=== PATIENT | female | born 1930 | race Caucasian/White ===

== ENCOUNTER 2016-04-03 13:13 | Observation (INO) ==
--- NOTE | 2016-04-03 13:55 | Emergency Department Note ---
Disposition Clinical Impression: ESRD (end stage renal disease) Lower extremity pain Qualifiers: Laterality: bilateral Qualified Code(s): M79.604 - Pain in right leg Hypotension Qualifiers: Hypotension type: unspecified hypotension type Qualified Code(s): I95.9 - Hypotension, unspecified Disposition: Admitted As Inpatient Referrals: NO,PCP [Primary Care Provider] - Forms: ED Satisfaction Letter Extremity Problem HPI - General Chief complaint: ED Extremity Problem,Nontraumatic Stated complaint: lower extremity pain Time Seen by Provider: 04/03/16 13:44 Source: patient, EMS Mode of arrival: EMS Limitations: no limitations Nursing Notes Reviewed: Yes Vital Signs Reviewed: Yes - History of Present Illness HPI Narrative: 86 yo female with multiple comorbidities including ESRD (Saturday ) presents for evaluation of bilateral lower extremity pain. Patient states he does have peripheral neuropathy controlled with Lyrica but the pain is worse in the past 2-3 days. Pain is noted on the dorsum of the foot as well as the anterior posterior calf. Patient reports subjective fevers. Denies any other symptoms. No shortness of breath or chest pain. Reports that she did go to her dialysis yesterday. States that her pain is typically controlled Lyrica. Nursing staff was concerned the patient's pain was not as well controlled. Spoke with nursing staff who stated that her blood pressure typically runs low including systolic pressures 100/60 or 90/60. Patient has had her Coreg held for the past 3 doses. Typically has not held on dialysis days which was yesterday. Pt Subjective Complaint: extremity pain Onset (ago): day(s) Consistency: Worsening Pain Scale: 8 - Related Data Home Medications Medication Instructions Recorded Confirmed Acetaminophen [Tylenol] 650 mg PO Q4H PRN 04/14/15 10/17/15 Allopurinol [Zyloprim 100 MG] 100 mg PO DAILY 04/14/15 10/17/15 Aspirin 81 mg PO DAILY 04/14/15 10/17/15 Clopidogrel [Plavix] 75 mg PO DAILY 04/14/15 10/17/15 Docusate Sodium [Colace] 100 mg PO DAILY 04/14/15 10/17/15 Furosemide [Lasix] 80 mg PO SUTUTHSA 04/14/15 10/17/15 Insulin LISPRO [HumaLOG] 2 - 14 units SQ TIDAC 04/14/15 10/17/15 Ipratropium/Albuterol Neb [Duoneb] 3 ml IH Q6HR 04/14/15 10/17/15 Omeprazole [PriLOSEC] 20 mg PO DAILY 04/14/15 10/17/15 Sevelamer [Renvela] 800 mg PO TIDWM 04/14/15 10/17/15 Ascorbate Calcium [Vitamin C] 500 mg PO DAILY 06/05/15 10/17/15 Diclofenac Sodium [Voltaren] 2 gm TP QID PRN 06/05/15 10/17/15 Duloxetine [Cymbalta] 60 mg PO DAILY 06/05/15 10/17/15 Carvedilol [Coreg] 6.25 mg PO BID 08/12/15 10/17/15 Magnesium Hydroxide [Milk of 5 ml PO QID PRN 08/12/15 10/17/15 Magnesia] Bacitracin OINT [Ak-Tracin] 1 appl TP DAILY 10/16/15 10/17/15 Diltiazem HCl [Cardizem] 120 mg PO DAILY 10/16/15 10/17/15 Insulin DETEMIR [Levemir] 10 unit SQ HS 10/16/15 10/17/15 LORazepam [Ativan] 0.25 mg PO HS PRN 10/16/15 10/17/15 Loperamide [Imodium] 2 mg PO Q4HR PRN 10/16/15 10/17/15 Mag Hydrox/Al Hydrox/Simeth [MT 15 ml PO Q4H PRN 10/16/15 10/17/15 Acid Suspension] Miconazole 2% cream [Remedy 1 appl TP DAILY 10/16/15 10/17/15 Antifungal] TraMADol [Ultram] 25 mg PO BID 10/16/15 10/17/15 Nut.tx.impaired Renal Fxn,Soy 120 ml PO TID 10/17/15 10/17/15 [Nepro Carb Steady] Previous Rx's Medication Instructions Recorded Pregabalin [Lyrica] 25 mg PO BID #60 capsule 09/07/15 Levofloxacin [Levaquin] 500 mg PO Q48H #3 tablet 10/21/15 Allergies Allergy/AdvReac Type Severity Reaction Status Date / Time Iodinated Contrast Media - Allergy See Verified 04/15/15 00:04 Oral and Comments Penicillins Allergy See Verified 08/31/15 10:33 Comments Sulfa (Sulfonamide AdvReac Anxiety Verified 04/14/15 17:58 Antibiotics) All systems ED: reviewed and negative except as stated. Constitutional: Reports: as per HPI, fever Eyes: Reports: as per HPI ENT ED: Reports: as per HPI Cardiovascular: Reports: as per HPI. Denies: chest pain Respiratory: Reports: as per HPI. Denies: dyspnea Gastrointestinal: Reports: as per HPI. Denies: abdominal pain, nausea, vomiting Genitourinary: Reports: as per HPI Musculoskeletal: Reports: as per HPI Integumentary: Reports: as per HPI Neurological: Reports: as per HPI Psychiatric: Reports: as per HPI Endocrine: Reports: as per HPI Hematological/Lymphatic: Reports: as per HPI Past Medical History - Past Medical History Medical history: Reports: arthritis, atrial fibrillation, cardiomyopathy, CHF, COPD, diabetes, dialysis, GERD, hyperlipidemia, hypertension, osteoporosis, renal disease, venous stasis, valvular heart disease, other Surgical history: Reports: angioplasty/stent, hysterectomy, knee replacement, orthopedic, other, CHRISTY/BSO, other (Left arm AV fistula placement) Psychiatric history: Reports: anxiety, depression 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 - General Limitations: no limitations General appearance: alert, in no apparent distress - Head Head exam: normocephalic, normal inspection - Eye Eye exam: Present: normal appearance, EOMI - ENT ENT exam: normal exam, mucous membranes moist - Neck Neck exam: Present: normal inspection, trachea midline - Chest Chest inspection: Present: normal inspection, symmetric chest wall rise - Respiratory Respiratory exam: Present: normal lung sounds bilaterally. Absent: respiratory distress, accessory muscle use - Cardiovascular Cardiovascular exam: Present: regular rate, irregular rhythm - Abdominal Exam Abdominal exam: Present: soft, Non-Tender - Extremities Exam Extremities exam: Present: normal inspection, pedal edema (Trace bilateral) - Expanded Upper Extremity Exam Shoulder exam: Present: normal inspection Arm exam: Present: normal inspection Elbow exam: Present: normal inspection, other (left upper extremity AV fistula with thrill) - Expanded Lower Extremity Exam Upper leg exam: Present: normal inspection Knee exam: Present: normal inspection Lower leg exam: Present: normal inspection, tenderness, swelling, erythema ( Faint erythema over the distal left leg). Absent: abrasion, laceration, ecchymosis Ankle exam: Present: normal inspection Foot/toe exam: Present: normal inspection Neurovascular/Tendon exam: Present: normal capillary refill. Absent: pulse deficit - Back Exam Back exam: Present: normal inspection - Neurological Exam Neurological exam: Present: alert, oriented X3 - Skin Skin exam: Present: warm, dry, intact, normal color Course Course Narrative: Patient seen and examined. Patient no acute distress. Initial vitals in ED did show some hypotension with SBP in the 70-80s while sleeping. Patient was noted to be hypotensive will screen for sources of infection. Patient will get screening labs, EKG, chest x-ray as well as a UA. Disposition pending. - Reevaluation(s) Reevaluation #1: Spoke with family at bedside. Family states the patient typically has low blood pressure and has followed with cardiology in the recent past. Daughters state that they typically stop her blood pressure medication on dialysis days. Patient's manual blood pressure was recheck and shows improvement. Time: 14:41 Reevaluation #2: Difficulty obtaining labs. Time: 15:24 Reevaluation #3: Patient seen and examined. Patient's resting comfortably. No acute distress. Time: 17:09 Vital Signs Temperature 98.5 F 04/03/16 13:14 Pulse Rate 100 04/03/16 13:14 Respiratory Rate 18 04/03/16 13:14 Blood Pressure 104/70 04/03/16 13:14 O2 Sat by Pulse Oximetry 95 04/03/16 13:14 Temperature 98.5 F 04/03/16 13:14 Pulse Rate 100 04/03/16 16:44 Respiratory Rate 16 04/03/16 16:44 Blood Pressure 95/57 04/03/16 16:44 O2 Sat by Pulse Oximetry 96 04/03/16 16:44 Oxygen Delivery Oxygen Delivery Room Air Extremity Problem, Nontraumati - MDM Narrative Medical decision making narrative: 86-year-old female presents for evaluation of bilateral lower extremity pain. Patient does have a history of diabetic peripheral neuropathy.The pain is worsened in the past couple days. At triage the patient was noted be mildly hypotensive in the emergency department the patient did have blood pressures noted to be SBP in the 70s-80s. Patient was mentating appropriately. Patient' s family at bedside states the patient has been having difficulty controlling blood pressure. Notes that they recently stopped giving her her Coreg prior to dialysis. Patient does take Coreg 6.25 twice a day. Patient also stopped giving her diltiazem as well. Spoke with the nursing staff noted that he had difficulty palpating dorsalis pedis or lower extremities. Patient does have palpable lower extremities pulses with no significant extremity edema. Patient' s lab work does show that she does have evidence of hypoperfusion with a lactate of 3.0. Do not believe this to be septic. Possibly related to blood pressure control and hypoperfusion. Patient will likely need inpatient care and titration of blood pressure. Patient's chest x-ray shows no acute abnormalities. Patient's troponin was negative with no changes on EKG. Patient does not produce any urine and is unlikely to be source of infection. Patient's abdominal exam is unremarkable. Believe the lactate of 3 is related to hypoperfusion. Patient's agreeable to plan of care. Patient be admitted to the hospitalist service for further evaluation monitoring. Patient was not fluid overloaded due to her concerns of ESRD. Spoke with hospitalist who agrees with inpatient admission and monitoring and titration of blood pressure medicines. - Lab Data Lab results reviewed: Yes I reviewed the patient's lab results. Result diagrams: 04/03/16 15:43 04/03/16 15:43 Lab Results 04/03/16 04/03/16 04/03/16 Range/Units 15:43 15:43 15:43 WBC 7.9 (4.3-11.1) K/mcL RBC 3.83 (3.82-4.97) M/mcL Hgb 12.4 (11.5-15.4) g/dL Hct 38.9 (35.3-44.9) % MCV 101.6 H (83.0-100.0) fL MCH 32.4 (28.0-33.3) pg MCHC 31.9 (31.6-35.5) g/dL RDW 14.8 H (11.5-14.5) % Plt Count 173 (140-400) K/mcL MPV 9.9 (9.4-12.4) fL Immature Gran % 0.3 (0-4) % Seg Neutrophils % 50.1 % Lymphocytes % 18.9 % Monocytes % 13.0 % Eosinophils % 16.8 % Basophils % 0.9 % Neutrophils # 4.0 (1.6-8.9) K/mcL Lymphocytes # 1.5 (0.6-4.6) K/mcL Monocytes # 1.0 (0.0-1.3) K/mcL Eosinophils # 1.3 H (0.0-0.6) K/mcL Basophils # 0.1 (0.0-0.2) K/mcL Sodium 140 (136-145) mEq/L Potassium 4.3 (3.5-4.5) mEq/L Chloride 96 L (98-109) mEq/L Carbon Dioxide 26 (19-29) mEq/L BUN 48 H (7-20) mg/dL Creatinine 5.60 H (0.57-1.11) mg/dL Est GFR ( Amer) 9 L (> 60) Est GFR (Non-Af Amer) 7 L (> 60) BUN/Creatinine Ratio 9 (6-26) Glucose 141 H (70-99) mg/dL Calculated Osmolality 305 H (280-300) Lactic Acid 3.0 H (0.5-2.2) mmol/L Calcium 10.4 (8.6-10.8) mg/dL - Radiology Data Radiology results reviewed: Yes I reviewed the patient's radiology results. Chest X-Ray 04/03/16 14:20 IMPRESSION: No acute cardiopulmonary disease D/ / Mark Abel MD / Mark Abel MD Interpreting Provider: Mark Abel MD - EKG Data EKG attestation: Yes I reviewed and interpreted this EKG. EKG shows normal: sinus rhythm Rate: normal Rhythm: NSR [place]/QRS: left axis deviation, IVCD Interpretation: no acute changes, unchanged when compared to prior tracing (date ) (11/25/15), nonspecific ST-T wave changes S.B.A.R. - S.B.A.R. Situation: Demographics Background: Presenting Complaint Assessment: Vital Signs, Course and respsone to treatment, Patient/Family Expectation, Pertinant Lab Results Recommendation: Barrier(s) to disposition, Recommendation based on pending studies, treatments, or consults Radha Report Given to: Dr. Nydia Garcia Repor Time: 17:20
--- NOTE | 2016-04-03 14:36 | Emergency Department Note ---
START Narrative - START START: I examined this patient and my medical decision-making was reviewed with the GRAVITY MANAGER/PA/Advanced Practice Nurse/Resident Physician. I agree with the documented findings, disposition and treatment plan as described except to the extent set forth below. ED attending note:I saw this Patient with the emergency medicine resident Dr. Kwon. Please see a copy of his note for details of the H&P, evaluation, management and disposition of this emergency Department patient. We independently had [id number] contact with the patient. Briefly: A 86-year-old female sent by EMS from local [facility] facility. Patient has end-stage renal disease 3 times a week dialysis center in for lower extremity pain. Patient is actually somnolent but arouses to voice and her light touch. She was hypotensive 79/54 which is lower than baseline for this patient. Let show chronic peripheral edema and some slight hyperemia but no signs of overt cellulitis or acute neurovascular compromise in the lower extremities. Patient will undergo a metabolic and cardiac workup and infectious workup to exclude those possibilities considering her hypotension and somnolence. Provided 45 minutes of critical care service for this patient. See resident note for disposition of details.
[2016-04-03 15:53] LABS: Basophils # 0.1 K/mcL (0.0-0.2); Basophils % 0.9 %; Eosinophils # 1.3 K/mcL (0.0-0.6); Eosinophils % 16.8 %; Hematocrit 38.9 % (35.3-44.9); Hemoglobin 12.4 g/dL (11.5-15.4); Immature Granulocytes % 0.3 % (0-4); Lymphocytes # 1.5 K/mcL (0.6-4.6); Lymphocytes % 18.9 %; Mean Corpuscular HGB Conc 31.9 g/dL (31.6-35.5); Mean Corpuscular Hemoglobin 32.4 pg (28.0-33.3); Mean Corpuscular Volume 101.6 fL (83.0-100.0); Mean Platelet Volume 9.9 fL (9.4-12.4); Platelet Count 173 K/mcL (140-400); Red Blood Count 3.83 M/mcL (3.82-4.97); Red Cell Distribution Width 14.8 % (11.5-14.5); Segmented Neutrophils % 50.1 %
[2016-04-03] MEDS ORDERED: 0.9 % Sodium Chloride 500 ML IVC ONE (16:09)
[2016-04-03 16:11] LABS: Calcium 10.4 mg/dL (8.6-10.8); Potassium 4.3 mEq/L (3.5-4.5)
[2016-04-03] MEDS ORDERED: Dextrose Gel 15 GM PO PRN ×2 (19:32)
[2016-04-03] MEDS ORDERED: 0.9 % Sodium Chloride 1,000 ML IVC ONE (19:32)
[2016-04-03] MEDS ORDERED: Acetaminophen 325 MG TABLET PO PRN (19:32)
[2016-04-03] MEDS ORDERED: *HR* OxyCODONE Immed Rel 5 MG TABLET PO PRN (19:32)
[2016-04-03] MEDS ORDERED: D5% in Water 1,000 ML IV PRN (19:32)
[2016-04-03] MEDS ORDERED: *HR* Morphine 2 MG/ML SYRINGE IVP PRN (19:32)
[2016-04-03] MEDS ORDERED: Ondansetron 4 MG/2 ML VIAL IVP PRN (19:32)
[2016-04-03] MEDS ORDERED: *HR* Dextrose 50 % in Water (Syg) 50 ML SYRINGE IVP PRN (19:32)
[2016-04-03] MEDS ORDERED: Ipratropium/Albuterol Neb 3 ML IH PRN (19:32)
[2016-04-03] MEDS ORDERED: Naloxone 0.4 MG/ML INJ IVP PRN (19:32)
[2016-04-03] MEDS ORDERED: Benzonatate 100 MG CAPSULE PO PRN (19:32)
[2016-04-03] MEDS ORDERED: Diclofenac Sodium [Voltaren] 2 GM TP PRN (19:41)
--- NOTE | 2016-04-03 20:52 | Internal Med History&Physical ---
Date of Encounter: 04/03/16 Time of Encounter: 19:00 Assessment and Plan (1) Intractable neuropathic pain of lower extremity Current visit: Yes Status: Acute . Qualifiers: Qualified Code(s): G57.90 - Unspecified mononeuropathy of unspecified lower limb (2) Peripheral sensory neuropathy due to type 2 diabetes mellitus Current visit: Yes Status: Chronic . (3) Lactic acidosis Current visit: Yes Status: Acute . (4) Type 2 diabetes mellitus Current visit: Yes Status: Chronic . Qualifiers: Qualified Code(s): E11.8 - Type 2 diabetes mellitus with unspecified complications (5) Age-related physical debility Current visit: Yes Status: Chronic . (6) Anemia in chronic kidney disease (CKD) Current visit: Yes Status: Chronic . (7) COPD (chronic obstructive pulmonary disease) Current visit: Yes Status: Chronic . Qualifiers: Qualified Code(s): J44.9 - Chronic obstructive pulmonary disease, unspecified (8) Chronic atrial fibrillation Current visit: Yes Status: Chronic . (9) Dyslipidemia Current visit: Yes Status: Chronic . (10) ESRD (end stage renal disease) on dialysis Current visit: Yes Status: Chronic . (11) Morbid obesity with BMI of 40.0-44.9, adult Current visit: Yes Status: Chronic . (12) Renovascular hypertension Current visit: Yes Status: Chronic . (13) Diabetic peripheral autonomic neuropathy Current visit: Yes Status: Acute . Qualifiers: Qualified Code(s): E11.43 - Type 2 diabetes mellitus with diabetic autonomic (poly)neuropathy (14) Orthostatic hypotension dysautonomic syndrome Current visit: Yes Status: Acute . (15) Hypotension Current visit: Yes Status: Acute . Qualifiers: Qualified Code(s): I95.9 - Hypotension, unspecified Internal Medicine - H&P: HPI Chief complaint: Lower extremity pain Admitted From: Emergency Dept Plans for Post Hospital Care: Home History of present illness: Ms. Crowder is a 86 year old female with history significant of ESRD-hemodialysis dependent (Saturday), diabetic peripheral neuropathy, hyperuricemia, PAD, type 2 diabetes mellitus, GERD, CHF unspecified, PVD/venous insufficiency, valvular heart disease, CAD/PTCAstent/CMP, secondary hyperparathyroidism, anemia of chronic disease, osteoarthritis, osteoporosis, chronic atrial fibrillation, COPD, hypertension, dyslipidemia, depression and anxiety, morbid obesity, nonsmoker The patient was visited and interviewed and examined. The patient is admitted to [facility] emergency room when she presented from half-way via EMS services with ports of intractable pain of her lower extremities patient is knowledgeable of the presence of a peripheral neuropathy present for many years. Currently she takes Lyrica nonsteroidal anti-inflammatory and tramadol for pain management. However in the half-way setting she has noted increasing discomfort over the 2-3 days prior to presenting to the ED. Is worse along the dorsum of each foot as well as the anterior posterior calf. She denied any recent fevers chills sweats, nausea vomiting diarrhea. Denied any recent swelling or infections of toes the legs deny any recent changes in her medication schedules. Denies chest pain shortness of breath. She has end- stage renal disease and receives hemodialysis on Saturday was a Fridays she attended her dialysis run the day prior to presenting. Answers was also raised by half-way staff to typically hypotensive blood pressures in the 90-100/60 range. Because of these pressure differentials half-way staff withheld her antihypertensive therapy specifically Coreg for the 3 doses prior to presenting to the ED. This is typically not withheld on her dialysis days. Pain in her lower extremities at presentation was rated as an 8/10 in severity during throbbing constant. Findings in the ED: Temperature 98.5 pulse 100 respirations 16 BP 95-104/57-77 %oxygen saturation 96% room air. WBC 7.9 hemoglobin 12.4 platelets 173,000. MCV 101.6. RDW 14.8. Differential normal except for an increase in eosinophils. Metabolic panel normal except BUN 48 creatinine 5.6247. Glucose 141 and osmolality 305. Chloride 96. Lactic acid 3. Chest x-ray demonstrated no acute or active cardiopulmonary process. Focal infiltrate pleural effusion or pneumothorax demonstrated. Heart size stable. Left upper extremity vascular stent present. No osseous abnormalities demonstrated. EKG demonstrated normal sinus rhythm with left axis deviation and intraventricular conduction delay. No acute ischemic changes seen. Preliminary impression suggests worsening diabetic peripheral sensory neuropathy and chronic pain. Similarly chronic hypotension likely a consequence of diabetic peripheral autonomic neuropathy and long-standing ESRD. Screening studies documents patient's ESRD. Vital signs and additional studies are relatively benign. Patient is at risk for further clinical decline due to her advanced age presenting complaints and associated comorbidities. Workup and treatments will proceed comprehensively. Cumulative laboratory and radiographic data base was reviewed, considered and discussed. Pertinent ancillary medical records including [facility] and PCI documentation when available was reviewed and considered. Given the patient's presenting concerns, past medical history, clinical findings and symptoms, she is admitted at this time will undergo further evaluation and disposition. Orders were written as per the computerized physician order builder system.......................................................................... .................... Consultative opinion and will be sought as clinical circumstances justify. Dialysis team/nephrology consulted for continuance of hemodialysis schedule. Pain management needs will be addressed. Chronicity of patient's lower extremity pain concerns may benefit from referral to pain management center. Laboratory and radiographic data base will be updated as appropriate. Studies include: Cultures of blood and urine, cardiac injury panel, BNP, metabolic and hematologic panel, magnesium, phosphorus, ionized calcium, thyroid panel, lipid profile, A1c, ammonia, random urine analysis, C-peptide, CRP sedimentation rate , B12, folic acid, vitamin D panel, urinalysis, blood gas, lactic acid, serologies, etc. Precautions: Aspiration, fall, delirium protocol/surveillance initiated. Telemetry with continuous hemodynamic monitoring and pulse oximetry initiated. Orthostatic vital signs. Empiric antibody coverage: pending culture data. Special studies: chest x-ray, telemetry, EKG. Pulmonary toilet: Incentive spirometry. When necessary aerosol bronchodilator, mucolytic, antitussive. Supplemental oxygen. Corticosteroid therapy may be employed. CPAP/BiPAP supplemental oxygen delivery may be employed. Aerosol Mucomyst therapy may be employed. Fluid and electrolyte repletion efforts will proceed. Careful attention to fluid balance and renal recovery will be emphasized. Avoidance of nephrotoxic exposure and adverse drug drug interaction in the setting of impaired renal function will be monitored closely. Acute coronary syndrome protocol/surveillance initiated. DVT and PUD prophylaxis initiated: PPI therapy, intermittent pneumatic cuffs. Subcutaneous heparin. Early ambulation will be encouraged. Immunization updates recommended. Influenza and pneumococcal vaccinations as part of ongoing preventative healthcare recommendations strongly recommended. Smoking cessation counseling briefly addressed. Patient is a nonsmoker. Advanced care directive discussion briefly addressed. Patient does not declare any healthcare restrictions at this time. Cardiovascular risk appraisal and cardiovascular risk reduction efforts will be emphasized. Physical and occupational therapy may be consulted to evaluate patient and assess functional capacity and progress mobility as her circumstances permit. Sliding scale insulin coverage, ADA /renal dietary restraint and schedule an as- needed basis fingerstick glucose assessments were initiated. Nutrition/diabetes education counseling may be considered as circumstances justify. Outpatient medication schedules will be reviewed confirmed and facilitated as appropriate. Reconciliation of home treatments including adjustments, substitutions and reintroduction into the treatment regimen we will address necessary maintenance therapies for chronic pre-existing medical conditions. Plan of care has been reviewed and discussed in detail with the patient. Questions addressed. Hospital course is dependent on clinical findings, treatment response and potential consultative interventions. Patient is at risk for further acute clinical decline due to her age, presenting chief complaints and comorbid conditions. Condition is serious. Prognosis is cautiously optimistic. CODE STATUS is full. Past Med Surg Social Fam HX - Past Medical History Source: old records reviewed Medical history: arthritis, asthma, atrial fibrillation, cardiomyopathy, CHF, COPD, coronary artery disease, diabetes, dialysis, GERD, hyperlipidemia, hypertension, osteoporosis, renal disease, venous stasis, valvular heart disease , other Psychiatric history: anxiety, depression, other - Past Surgical History Surgical History: angioplasty/stent, hysterectomy, knee replacement, orthopedic , other, CHRISTY/BSO, other (Left arm AV fistula placement), vascular surgery - Social History Smoking Status: Never smoker Smokeless Tobacco Status: No Alcohol use: rarely Drug use: none Occupational status: retired Current living situation: ECF, Other Activity Level: Mostly sedentary Recent Out of Country Travel Within the Last 8 Weeks: No Exposure or Possible Exposure to Illness During Travel: No - Family History Son Living Status: Still Living Hx Family Cardiac Disorders: Yes (heart problems) Father Living Status: Hx Family Cardiac Disorders: Yes Hx Family Endocrine Disorder: Yes (DM) Mother Living Status: Hx Family Cardiac Disorders: No Hx Family Respiratory Disorders: No Hx Family Cancer: No Hx Family GI Disorders: No Hx Family Endocrine Disorder: No Hx Family Neuromuscular Disorders: No Hx Family Neurologic Disorders: No Hx Family HEENT Disorders: No Hx Family Autoimmune Disorders: No Internal Medicine - H&P: Meds Acetaminophen [Tylenol] 650 mg PO Q6H PRN 04/14/15 [History] Allopurinol [Zyloprim 100 MG] 100 mg PO DAILY 04/14/15 [History] Aspirin 81 mg PO DAILY 04/14/15 [History] Clopidogrel [Plavix] 75 mg PO DAILY 04/14/15 [History] Docusate Sodium [Colace] 100 mg PO DAILY 04/14/15 [History] Furosemide [Lasix] 80 mg PO SUTUTHSA 04/14/15 [History] Insulin LISPRO [HumaLOG] 2 - 14 units SQ TIDAC 04/14/15 [History] Ipratropium/Albuterol Neb [Duoneb] 3 ml IH Q6HR 04/14/15 [History] Omeprazole [PriLOSEC] 20 mg PO DAILY 04/14/15 [History] Sevelamer [Renvela] 800 mg PO TIDWM 04/14/15 [History] Ascorbate Calcium [Vitamin C] 500 mg PO DAILY 06/05/15 [History] Diclofenac Sodium [Voltaren] 2 gm TP QID PRN 06/05/15 [History] Duloxetine [Cymbalta] 60 mg PO DAILY 06/05/15 [History] Carvedilol [Coreg] 6.25 mg PO BID 08/12/15 [History] Diltiazem HCl [Cardizem] 120 mg PO DAILY 10/16/15 [History] Insulin DETEMIR [Levemir] 10 unit SQ HS 10/16/15 [History] LORazepam [Ativan] 0.5 mg PO HS PRN 10/16/15 [History] Loperamide [Imodium] 2 mg PO Q4HR PRN 10/16/15 [History] TraMADol [Ultram] 25 mg PO BID 10/16/15 [History] Pregabalin [Lyrica] 50 mg PO BID 04/03/16 [History] Allergies Iodinated Contrast Media - Oral and Allergy (Verified 04/03/16 19:37) See Comments UNABLE TO CONFIRM REACTIONS- ALL ALLERGIES OBTAINED THROUGH [facility] LAST APPT. Penicillins Allergy (Verified 04/03/16 19:37) See Comments UNABLE TO CONFIRM REACTIONS- ALL ALLERGIES OBTAINED THROUGH [facility] LAST APPT. povidone-iodine [From Betadine] Allergy (Verified 04/03/16 19:37) See Comments UNABLE TO CONFIRM REACTIONS- ALL ALLERGIES OBTAINED THROUGH [facility] LAST APPT. soap [From Betadine] Allergy (Verified 04/03/16 19:37) See Comments UNABLE TO CONFIRM REACTIONS- ALL ALLERGIES OBTAINED THROUGH [facility] LAST APPT. Sulfa (Sulfonamide Antibiotics) Allergy (Verified 04/03/16 19:37) See Comments UNABLE TO CONFIRM REACTIONS- ALL ALLERGIES OBTAINED THROUGH [facility] LAST APPT. All Systems PM: A 10-system review of systems was performed and is negative for pertinent findings except as documented above in the HPI. - Constitutional Constitutional: as per HPI, fever(s), malaise, no chills, no night sweats - EENT Eyes: as per HPI, no change in vision, no discharge, no pain, no photophobia Ears: as per HPI, no ear discharge, no ear pain, no tinnitus Nose, mouth and throat: as per HPI, no dysphagia, no nasal discharge, no neck pain, no sore throat - Cardiovascular Cardiovascular ROS IM: as per HPI, no chest pain, no diaphoresis, no dyspnea, no lightheadedness, no palpitations, no syncope - Respiratory Respiratory: as per HPI, no cough, no dyspnea, no wheezing, no excessive phlegm production - Gastrointestinal Gastrointestinal: as per HPI, no abdominal pain, no diarrhea, no hematemesis, no hematochezia, no melena, no nausea, no vomiting - Genitourinary Genitourinary: as per HPI, no change in urinary stream, no dysuria, no flank pain, no hematuria - Musculoskeletal Musculoskeletal ROS IM: as per HPI, back pain, other, no numbness, no tingling - Integumentary Integumentary IM: as per HPI, no rash, no unusual bruising - Neurological Neurological ROS: as per HPI, abnormal gait, radicular pain, weakness, other, no confusion, no convulsions, no focal weakness, no numbness, no tingling, no tremor(s) - Psychiatric Psychiatric: as per HPI - Endocrine Endocrine IM: as per HPI - Hematologic/Lymphatic Hematologic/Lymphatic: as per HPI, no easy bruising - Allergic/Immunologic Allergic/Immunologic: as per HPI - Constitutional Vitals: Temp Pulse Resp BP Pulse Ox 98.5 F 100 18 126/61 96 04/03/16 13:14 04/03/16 16:44 04/03/16 19:07 04/03/16 19:07 04/03/16 16:44 General appearance: Present: A&O X 3, morbidly obese, no acute distress, answers questions appropriately - Head Head exam: Present: atraumatic, normocephalic - Eye Eye exam: Present: EOMI, PERRL, conjuntiva pink, sclera anicteric Pupils: Present: normal accommodation, PERRL - ENT ENT exam: Present: mucous membranes moist, normal external ear exam, normal oropharynx - Neck Neck exam general surgery: Present: full ROM, supple, trachea midline. Absent: lymphadenopathy, tenderness, nuchal rigidity - Respiratory Respiratory exam: Present: CTAB. Absent: accessory muscle use, rales, rhonchi, wheezes - Cardiovascular Cardiovascular exam: Present: distant heart sounds, RRR, +S1, +S2. Absent: diastolic murmur, gallop, rubs, systolic murmur - GI/Abdominal GI/Abdominal exam: Present: normal bowel sounds, soft, no peritoneal signs. Absent: distended, tenderness - Extremities Exam Extremities exam: Present: full ROM, warm, radial pulses palpable and symetrical. Absent: calf tenderness, cyanotic, pedal edema - Neurological Exam Neurological exam: Present: alert, CN II-XII intact, motor sensory deficit, oriented X3. Absent: pronater drift, facial droop, speech deficit - Psychiatric Psychiatric exam: Present: normal affect, normal mood - Skin Skin exam: Present: dry, intact, warm. Absent: petechiae, rash, urticaria, vesicles Internal Med - H&P Results - Labs CBC & Chem 7: 04/03/16 15:43 04/04/16 03:40 - Impressions Vital Signs Temp Pulse Resp BP Pulse Ox 04/03/16 19:07 18 126/61 04/03/16 16:44 100 16 95/57 96 04/03/16 14:37 94 16 111/78 100 04/03/16 13:55 101 16 101/63 97 04/03/16 13:14 98.5 F 100 18 104/70 95 Intake and Output 04/03/16 04/03/16 04/03/16 07:59 15:59 23:59 Intake Total 500 / 500 Balance 500 / 500 Intake: IV Fluids 500 / 500 0.9 % Sodium Chloride 500 500 / 500 ML @ 1875 mls/hr IVC . Q16M ONE Rx#:[id number] Other: Weight 90.718 kg Patient Weight 04/03/16 23:59 Weight 90.718 kg Short CBC 04/03/16 Range/Units 15:43 WBC 7.9 (4.3-11.1) K/mcL Hgb 12.4 (11.5-15.4) g/dL Hct 38.9 (35.3-44.9) % Plt Count 173 (140-400) K/mcL Neutrophils # 4.0 (1.6-8.9) K/mcL BMP 04/03/16 Range/Units 15:43 Sodium 140 (136-145) mEq/L Potassium 4.3 (3.5-4.5) mEq/L Chloride 96 L (98-109) mEq/L Carbon Dioxide 26 (19-29) mEq/L BUN 48 H (7-20) mg/dL Creatinine 5.60 H (0.57-1.11) mg/dL Glucose 141 H (70-99) mg/dL Calcium 10.4 (8.6-10.8) mg/dL Abnormal lab results MCV 101.6 fL (83.0-100.0) H 04/03/16 15:43 RDW 14.8 % (11.5-14.5) H 04/03/16 15:43 Eosinophils # 1.3 K/mcL (0.0-0.6) H 04/03/16 15:43 Chloride 96 mEq/L (98-109) L 04/03/16 15:43 BUN 48 mg/dL (7-20) H 04/03/16 15:43 Creatinine 5.60 mg/dL (0.57-1.11) H 04/03/16 15:43 Est GFR ( Amer) 9 (> 60) L 04/03/16 15:43 Est GFR (Non-Af Amer) 7 (> 60) L 04/03/16 15:43 Glucose 141 mg/dL (70-99) H 04/03/16 15:43 Calculated Osmolality 305 (280-300) H 04/03/16 15:43 Lactic Acid 3.0 mmol/L (0.5-2.2) H 04/03/16 15:43 Allergies Allergy/AdvReac Type Severity Reaction Status Date / Time Iodinated Contrast Media - Allergy See Verified 04/03/16 19:37 Oral and Comments Penicillins Allergy See Verified 04/03/16 19:37 Comments povidone-iodine Allergy See Verified 04/03/16 19:37 [From Betadine] Comments soap [From Betadine] Allergy See Verified 04/03/16 19:37 Comments Sulfa (Sulfonamide Allergy See Verified 04/03/16 19:37 Antibiotics) Comments Laboratory Results WBC 7.9 K/mcL (4.3-11.1) 04/03/16 15:43 RBC 3.83 M/mcL (3.82-4.97) 04/03/16 15:43 Hgb 12.4 g/dL (11.5-15.4) 04/03/16 15:43 Hct 38.9 % (35.3-44.9) 04/03/16 15:43 MCV 101.6 fL (83.0-100.0) H 04/03/16 15:43 MCH 32.4 pg (28.0-33.3) 04/03/16 15:43 MCHC 31.9 g/dL (31.6-35.5) 04/03/16 15:43 RDW 14.8 % (11.5-14.5) H 04/03/16 15:43 Plt Count 173 K/mcL (140-400) 04/03/16 15:43 MPV 9.9 fL (9.4-12.4) 04/03/16 15:43 Immature Gran % 0.3 % (0-4) 04/03/16 15:43 Seg Neutrophils % 50.1 % 04/03/16 15:43 Lymphocytes % 18.9 % 04/03/16 15:43 Monocytes % 13.0 % 04/03/16 15:43 Eosinophils % 16.8 % 04/03/16 15:43 Basophils % 0.9 % 04/03/16 15:43 Neutrophils # 4.0 K/mcL (1.6-8.9) 04/03/16 15:43 Lymphocytes # 1.5 K/mcL (0.6-4.6) 04/03/16 15:43 Monocytes # 1.0 K/mcL (0.0-1.3) 04/03/16 15:43 Eosinophils # 1.3 K/mcL (0.0-0.6) H 04/03/16 15:43 Basophils # 0.1 K/mcL (0.0-0.2) 04/03/16 15:43 Sodium 140 mEq/L (136-145) 04/03/16 15:43 Potassium 4.3 mEq/L (3.5-4.5) 04/03/16 15:43 Chloride 96 mEq/L (98-109) L 04/03/16 15:43 Carbon Dioxide 26 mEq/L (19-29) 04/03/16 15:43 BUN 48 mg/dL (7-20) H 04/03/16 15:43 Creatinine 5.60 mg/dL (0.57-1.11) H 04/03/16 15:43 Est GFR ( Amer) 9 (> 60) L 04/03/16 15:43 Est GFR (Non-Af Amer) 7 (> 60) L 04/03/16 15:43 BUN/Creatinine Ratio 9 (6-26) 04/03/16 15:43 Glucose 141 mg/dL (70-99) H 04/03/16 15:43 Calculated Osmolality 305 (280-300) H 04/03/16 15:43 Lactic Acid 3.0 mmol/L (0.5-2.2) H 04/03/16 15:43 Calcium 10.4 mg/dL (8.6-10.8) 04/03/16 15:43 Impressions Chest X-Ray 04/03/16 14:20 IMPRESSION: No acute cardiopulmonary disease D/ / Mark Abel MD / Mark Abel MD Interpreting Provider: Mark Abel MD
[2016-04-03] MEDS: Insulin LISPRO 300 UNITS/3 ML VIAL SQ SCH (23:16)
[2016-04-03] MEDS: traMADol 50 MG TABLET PO SCH (23:17)
[2016-04-03] MEDS: Insulin DETEMIR 100 UNIT/ML X5UNITS SQ SCH (23:17)
[2016-04-03] MEDS: Pregabalin 25 MG CAPSULE PO SCH (23:17)
[2016-04-04] MEDS ORDERED: Ipratropium/Albuterol Neb 3 ML IH SCH
[2016-04-04] MEDS: 0.9 % Sodium Chloride 1,000 ML IVC SCH (01:04)
[2016-04-04 03:54] LABS: VBG HCO3 26.8 mEq/L (21-27); VBG PH 7.48 pH Units (7.32-7.42)
[2016-04-04 03:58] LABS: Ionized Calcium 1.14 mmol/L (1.15-1.35)
[2016-04-04 04:02] LABS: Prothrombin Time 10.9 Seconds (9.4-12.1)
[2016-04-04 04:05] LABS: Activated Partial Thrombo Time 26.7 Seconds (26.0-36.0)
[2016-04-04 04:09] LABS: Albumin/Globulin Ratio 0.8 (1.1-2.2); Bilirubin,Total 0.5 mg/dL (0.2-1.2); Calcium 9.7 mg/dL (8.6-10.8); Globulin 3.9 g/dL (2.4-3.5); Potassium 4.4 mEq/L (3.5-4.5); Total Protein 6.9 g/dL (6.0-8.3); Uric Acid 4.4 mg/dL (2.6-6.0)
[2016-04-04 04:12] LABS: Hemoglobin A1C 6.6 %
[2016-04-04] MEDS: Ipratropium/Albuterol Neb 3 ML IH SCH ×2 (04:35→10:37)
[2016-04-04 04:43] LABS: Folate 13.5 ng/mL (7.0-31.4)
[2016-04-04 05:54] LABS: Thyroid Stimulating Hormone 0.844 mcIU/mL (0.350-4.840)
--- NOTE | 2016-04-04 08:06 | Nephrology Consult Note ---
Date of Encounter: 04/04/16 Time of Encounter: 08:04 Assessment and Plan (1) ESRD (end stage renal disease) Current Visit: Yes Status: Acute Patient will receive her usual dialysis treatment today. Orders have been submitted. Her hemoglobin is greater than 10 so she will not require any Aranesp. Vital signs are stable. Currently she is on Lyrica and narcotic analgesics for her neuropathic pain and she seems to be comfortable. (2) Intractable neuropathic pain of lower extremity Current Visit: Yes Status: Acute Qualifiers: Laterality: unspecified laterality Qualified Code(s): G57.90 - Unspecified mononeuropathy of unspecified lower limb (3) Anemia in chronic kidney disease (CKD) Current Visit: Yes Status: Chronic History of Present Illness - History of Present Illness This is an 86-year-old female with end-stage renal disease related to diabetes. She receives dialysis every Saturday in [place]. Patient was admitted from the intermediate with complaints of intermittent pain in her legs and feet likely related to peripheral sensory neuropathy. Patient says she has periods of increasing pain that lasts for about an hour or so. Currently she said her pain is under good control. The intermediate she takes Lyrica as well as narcotic analgesics. Otherwise she says she is feeling well. She denies any shortness of breath chest pain fevers chills nausea vomiting. Clinically she actually looks quite well. She has minimal swelling. Her chest x-ray is clear. She is alert and oriented and in no obvious distress. Past Med Surg Social Fam HX - Past Medical History Medical history: arthritis, atrial fibrillation, cardiomyopathy, CHF, COPD, coronary artery disease, diabetes, dialysis, GERD, hyperlipidemia, hypertension , osteoporosis, renal disease, venous stasis, valvular heart disease, other Psychiatric history: anxiety, depression, other - Past Surgical History Surgical History: angioplasty/stent, hysterectomy, knee replacement, orthopedic , other, CHRISTY/BSO, other (Left arm AV fistula placement) - Social History Smoking Status: Never smoker Smokeless Tobacco Status: No Alcohol use: rarely Drug use: none - Family History Son Living Status: Still Living Hx Family Cardiac Disorders: Yes (heart problems) Father Living Status: Cause of : Farm accident Hx Family Cardiac Disorders: Yes Hx Family Respiratory Disorders: No Hx Family Cancer: Yes Hx Family GI Disorders: No Hx Family Genitourinary Disorders: No Hx Family Endocrine Disorder: Yes (DM) Hx Family Musculoskeletal Disorders: No Hx Family Neuromuscular Disorders: No Hx Family Neurologic Disorders: Yes Hx Family HEENT Disorders: No Hx Family Autoimmune Disorders: No Hx Family Reproductive Disorders: No Hx Family Psychosocial Disorders: No Hx Family Medical Disorders: No Mother Living Status: Hx Family Cardiac Disorders: No Hx Family Respiratory Disorders: No Hx Family Cancer: No Hx Family GI Disorders: No Hx Family Endocrine Disorder: No Hx Family Neuromuscular Disorders: No Hx Family Neurologic Disorders: No Hx Family HEENT Disorders: No Hx Family Autoimmune Disorders: No Medications and Allergies Acetaminophen [Tylenol] 650 mg PO Q6H PRN 04/14/15 [History] Allopurinol [Zyloprim 100 MG] 100 mg PO DAILY 04/14/15 [History] Aspirin 81 mg PO DAILY 04/14/15 [History] Clopidogrel [Plavix] 75 mg PO DAILY 04/14/15 [History] Docusate Sodium [Colace] 100 mg PO DAILY 04/14/15 [History] Furosemide [Lasix] 80 mg PO SUTUTHSA 04/14/15 [History] Insulin LISPRO [HumaLOG] 2 - 14 units SQ TIDAC 04/14/15 [History] Ipratropium/Albuterol Neb [Duoneb] 3 ml IH Q6HR 04/14/15 [History] Omeprazole [PriLOSEC] 20 mg PO DAILY 04/14/15 [History] Sevelamer [Renvela] 800 mg PO TIDWM 04/14/15 [History] Ascorbate Calcium [Vitamin C] 500 mg PO DAILY 06/05/15 [History] Diclofenac Sodium [Voltaren] 2 gm TP QID PRN 06/05/15 [History] Duloxetine [Cymbalta] 60 mg PO DAILY 06/05/15 [History] Carvedilol [Coreg] 6.25 mg PO BID 08/12/15 [History] Diltiazem HCl [Cardizem] 120 mg PO DAILY 10/16/15 [History] Insulin DETEMIR [Levemir] 10 unit SQ HS 10/16/15 [History] LORazepam [Ativan] 0.5 mg PO HS PRN 10/16/15 [History] Loperamide [Imodium] 2 mg PO Q4HR PRN 10/16/15 [History] TraMADol [Ultram] 25 mg PO BID 10/16/15 [History] Pregabalin [Lyrica] 50 mg PO BID 04/03/16 [History] Allergies Iodinated Contrast Media - Oral and Allergy (Verified 04/03/16 19:37) See Comments UNABLE TO CONFIRM REACTIONS- ALL ALLERGIES OBTAINED THROUGH [facility] LAST APPT. Penicillins Allergy (Verified 04/03/16 19:37) See Comments UNABLE TO CONFIRM REACTIONS- ALL ALLERGIES OBTAINED THROUGH [facility] LAST APPT. povidone-iodine [From Betadine] Allergy (Verified 04/03/16 19:37) See Comments UNABLE TO CONFIRM REACTIONS- ALL ALLERGIES OBTAINED THROUGH [facility] LAST APPT. soap [From Betadine] Allergy (Verified 04/03/16 19:37) See Comments UNABLE TO CONFIRM REACTIONS- ALL ALLERGIES OBTAINED THROUGH [facility] LAST APPT. Sulfa (Sulfonamide Antibiotics) Allergy (Verified 04/03/16 19:37) See Comments UNABLE TO CONFIRM REACTIONS- ALL ALLERGIES OBTAINED THROUGH [facility] LAST APPT. Review of Systems Constitutional: no excessive sweating, no weight loss Eyes: bilateral: blurred vision (patient denies), diplopia (patient denies) Nose, mouth and throat: no dizziness, no headache(s) Cardiovascular: edema, no chest pain, no palpitations Respiratory: as per HPI, dyspnea on exertion Gastrointestinal: no abdominal pain, no change in bowel habits Musculoskeletal: as per HPI Musculoskeletal: bilateral: foot pain Neurological: as per HPI, weakness Psychiatric: no depression, no difficulty concentrating Endocrine: as per HPI Hematologic/Lymphatic: no easy bruising, no lymphadenopathy Exam - Vital Signs Vital signs: Initial Vital Signs Temp Pulse Resp BP Pulse Ox 98.5 F 100 18 104/70 95 04/03/16 13:14 04/03/16 13:14 04/03/16 13:14 04/03/16 13:14 04/03/16 13:14 Vital Signs - Last 8 Hours Temp Pulse Resp BP Pulse Ox 04/04/16 05:01 97.7 F 87 18 117/73 93 L 04/04/16 04:35 18 93 L 04/04/16 01:15 18 126/61 96 Intake and Output 04/03/16 04/04/16 04/04/16 23:59 07:59 15:59 Intake Total 500 / 500 Balance 500 / 500 Intake: IV Fluids 500 / 500 0.9 % Sodium Chloride 500 500 / 500 ML @ 1875 mls/hr IVC . Q16M ONE Rx#:[id number] Other: Blood Glucose* 83 - General Appearance Exam: The patient is alert and oriented. She is in no acute distress. Carotids show no bruits. Lungs somewhat diminished breath sounds otherwise clear. Heart regular rate and rhythm with a 2/6 systolic ejection murmur. Abdomen shows normal bowel sounds of bruits masses or megaly or tenderness. Lower summary show minimal edema. Actually her swelling is quite good for her. Her feet show no obvious skin ulcers or breakdown. Dorsalis pedis pulses are diminished in the feet bilaterally. Posterior tibial pulses are 2 over 4 bilaterally. There is a functioning AV graft in the left arm. Results - Lab Results 04/03/16 15:43 04/04/16 03:40 Most recent lab results Calcium 9.7 mg/dL (8.6-10.8) 04/04/16 03:40 Magnesium 2.0 mg/dL (1.6-2.6) 04/04/16 03:40 Consult Discharge Plan - Plan Referrals: NO,PCP [Primary Care Provider] -
[2016-04-04] MEDS ORDERED: 0.9 % Sodium Chloride 250 ML IV PRN (08:08)
[2016-04-04] MEDS: traMADol 50 MG TABLET PO SCH (08:34)
[2016-04-04] MEDS: Aspirin 81 MG TAB.CHEW PO SCH (08:35)
[2016-04-04] MEDS: Pregabalin 25 MG CAPSULE PO SCH (08:35)
[2016-04-04] MEDS: Insulin LISPRO 300 UNITS/3 ML VIAL SQ SCH ×4 (08:39→21:11)
[2016-04-04] MEDS ORDERED: dilTIAZem HCl 60 MG TABLET PO SCH (09:00)
[2016-04-04] MEDS ORDERED: Ethyl Chloride Spray Bottle (104 SPRAY/BOTTLE) TP SCH (09:00)
[2016-04-04] MEDS ORDERED: ASCORBATE CALCIUM 500 MG PO SCH (09:00)
--- NOTE | 2016-04-04 11:20 | Electrocardiograph Report ---
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
[2016-04-04] MEDS ORDERED: traMADol 50 MG TABLET PO PRN (13:00)
--- NOTE | 2016-04-04 17:02 | Internal Med Progress Note ---
Date of Encounter: 04/04/16 Time of Encounter: 17:00 - Assessment and plan (1) Diabetic peripheral autonomic neuropathy Current Visit: Yes Status: Acute Assessment and plan: Denies any pain at this time. her dose of Lyrica was adjusted to 75 daily given ESRD on HD. will avoid IV narcotic at this time, will do tramadol and oxycodone for the pain. Qualifiers: Qualified Code(s): E11.43 - Type 2 diabetes mellitus with diabetic autonomic (poly)neuropathy (2) ESRD (end stage renal disease) Current Visit: Yes Status: Acute (3) Intractable neuropathic pain of lower extremity Current Visit: Yes Status: Acute Qualifiers: Qualified Code(s): G57.90 - Unspecified mononeuropathy of unspecified lower limb - Subjective Interval history: seen at the bedside, was noted to be sleeping the whole morning. once she woke up, she says she is doing well and did not c/o any pain at this time she is for HD today. - Constitutional Vitals: Temp Pulse Resp BP Pulse Ox 97.5 F L 90 18 104/63 94 L 04/04/16 16:56 04/04/16 16:56 04/04/16 16:56 04/04/16 16:56 04/04/16 16:56 General appearance: Present: A&O X 3, no acute distress Exam: neck- supple chest- b/l clear, no added sounds CVS-s1 and s2,no m/r/g abd- soft, non tender, bs are present ext- no edema, no tenderness. neuro- no focal defecits. Internal Medicine: Result - Labs CBC & Chem 7: 04/03/16 15:43 04/04/16 03:40 Labs: BMP 04/04/16 03:40 Sodium 139 Potassium 4.4 Chloride 97 L Carbon Dioxide 25 BUN 54 H Creatinine 6.43 H Glucose 109 H Calcium 9.7 Liver Function 04/04/16 Range/Units 03:40 Total Bilirubin 0.5 (0.2-1.2) mg/dL AST 11 (5-34) Units/L ALT 9 (0-55) Units/L Alkaline Phosphatase 203 H (38-126) Units/L Albumin 3.0 L (3.5-5.0) g/dL - ABG Interpretation ABG results: PT/INR, D-dimer PT 10.9 Seconds (9.4-12.1) 04/04/16 03:40 - VTE Documentation of Mechanical Device: Intermittent pneumatic compression device Consult Discharge Plan - Plan Referrals: NO,PCP [Primary Care Provider] -
[2016-04-04] MEDS: *HR* Heparin 5,000 UNIT/ML VIAL SQ SCH (17:20)
[2016-04-04] MEDS ORDERED: Pregabalin 75 MG CAPSULE PO SCH (18:00)
[2016-04-04] MEDS: *HR* OxyCODONE Immed Rel 5 MG TABLET PO PRN (21:09)
[2016-04-04] MEDS: Insulin DETEMIR 100 UNIT/ML X5UNITS SQ SCH (21:11)
[2016-04-05] MEDS: *HR* LORazepam 0.5 MG TABLET PO PRN ×2 (01:28→16:52)
[2016-04-05] MEDS: *HR* Heparin 5,000 UNIT/ML VIAL SQ SCH (05:17)
[2016-04-05] MEDS: *HR* OxyCODONE Immed Rel 5 MG TABLET PO PRN (05:25)
[2016-04-05] MEDS: 0.9 % Sodium Chloride 1,000 ML IVC SCH (07:14)
[2016-04-05] MEDS: Insulin LISPRO 300 UNITS/3 ML VIAL SQ SCH ×3 (08:00→16:29)
[2016-04-05] MEDS ORDERED: 0.9 % Sodium Chloride 250 ML IV PRN (08:19)
--- NOTE | 2016-04-05 08:19 | Nephrology Progress Note ---
Date of Encounter: 04/05/16 Time of Encounter: 07:55 Subjective Interval history: Sitting up in bed, eating breakfast. States leg pain under good control A/P- HD not done yesterday due to difficulty accessing AVF. Positive bruit/ thrill. Will do HD today, orders given. Objective - Vital Signs Vital signs: Vital Signs Temp Pulse Resp BP Pulse Ox 04/05/16 07:37 97.9 F 88 18 99/44 84 L 04/05/16 05:35 98.1 F 92 20 106/55 95 04/05/16 01:28 98.5 F 87 20 99/44 93 L 04/04/16 21:08 98.0 F 104 20 106/51 95 04/04/16 16:56 97.5 F L 90 18 104/63 94 L 04/04/16 11:22 97.6 F 90 18 133/79 97 04/04/16 10:38 18 96 04/04/16 08:21 97.4 F L 94 16 127/58 95 Intake and Output 04/04/16 04/05/16 04/05/16 23:59 07:59 15:59 Intake Total 0 / 0 Output Total 0 / 0 Balance 0 / 0 Intake: Oral 0 / 0 Output: Urine 0 / 0 Other: Weight 92.669 kg Blood Glucose* 127 86 Patient Weight 04/05/16 23:59 Weight 92.669 kg - General Appearance General appearance: Present: well-developed, well-nourished, appears started age EENT: Present: mucous membranes moist Neck: Present: no JVD Respiratory: Present: wheezing Cardiology: Present: no edema, regular rate, regular rhythm Dialysis Vascular Access: Arteriovenous Fistula thrill: Yes bruit: Yes Gastrointestinal: Present: normoactive bowel sounds, no tenderness Integumentary: Present: warm and dry Neurologic: Present: alert and oriented x3 Psychiatric: Present: mood/affect appropriate, cooperative - Lab 04/03/16 15:43 04/04/16 03:40 Most recent lab results Calcium 9.7 mg/dL (8.6-10.8) 04/04/16 03:40 Phosphorus 5.8 mg/dL (2.3-4.7) H 04/05/16 06:00 Magnesium 2.0 mg/dL (1.6-2.6) 04/04/16 03:40 - VTE Documentation of Mechanical Device: Intermittent pneumatic compression device Consult Discharge Plan - Plan Referrals: NO,PCP [Primary Care Provider] -
[2016-04-05] MEDS: Aspirin 81 MG TAB.CHEW PO SCH (08:24)
[2016-04-05 09:56] LABS: Hematocrit 31.2 % (35.3-44.9); Mean Corpuscular HGB Conc 32.7 g/dL (31.6-35.5); Mean Corpuscular Hemoglobin 32.3 pg (28.0-33.3); Mean Corpuscular Volume 98.7 fL (83.0-100.0); Mean Platelet Volume 10.3 fL (9.4-12.4); Platelet Count 154 K/mcL (140-400); Red Blood Count 3.16 M/mcL (3.82-4.97)
[2016-04-05 10:05] LABS: Calcium 8.4 mg/dL (8.6-10.8); Potassium 4.4 mEq/L (3.5-4.5)
[2016-04-05 10:11] LABS: Hemoglobin 10.2 g/dL (11.5-15.4)
[2016-04-05 10:27] LABS: Hepatitis B Surface Antigen Nonreactive (Nonreactive)
--- NOTE | 2016-04-05 13:07 | Discharge Summary ---
Date of Encounter: 04/05/16 Time of Encounter: 13:05 - Discharge Diagnosis (1) Diabetic peripheral autonomic neuropathy Priority: Primary Status: Acute Qualifiers: Qualified Code(s): E11.43 - Type 2 diabetes mellitus with diabetic autonomic (poly)neuropathy (2) ESRD (end stage renal disease) Priority: Secondary Status: Acute (3) Intractable neuropathic pain of lower extremity Priority: Primary Status: Acute Qualifiers: Qualified Code(s): G57.90 - Unspecified mononeuropathy of unspecified lower limb - Discharge Medications Prescriptions: LORazepam [Ativan] 0.5 mg PO HS PRN #30 tablet PRN Reason: Anxiety Pregabalin [Lyrica] 75 mg PO Q24H #30 capsule Tramadol HCl [Ultram] 25 mg PO BID PRN #60 tab PRN Reason: Pain Home Medications: Acetaminophen [Tylenol] 650 mg PO Q6H PRN 04/14/15 [History] Allopurinol [Zyloprim 100 MG] 100 mg PO DAILY 04/14/15 [History] Aspirin 81 mg PO DAILY 04/14/15 [History] Clopidogrel [Plavix] 75 mg PO DAILY 04/14/15 [History] Docusate Sodium [Colace] 100 mg PO DAILY 04/14/15 [History] Furosemide [Lasix] 80 mg PO SUTUTHSA 04/14/15 [History] Insulin LISPRO [HumaLOG] 2 - 14 units SQ TIDAC 04/14/15 [History] Ipratropium/Albuterol Neb [Duoneb] 3 ml IH Q6HR 04/14/15 [History] Omeprazole [PriLOSEC] 20 mg PO DAILY 04/14/15 [History] Sevelamer [Renvela] 800 mg PO TIDWM 04/14/15 [History] Ascorbate Calcium [Vitamin C] 500 mg PO DAILY 06/05/15 [History] Diclofenac Sodium [Voltaren] 2 gm TP QID PRN 06/05/15 [History] Duloxetine [Cymbalta] 60 mg PO DAILY 06/05/15 [History] Carvedilol [Coreg] 6.25 mg PO BID 08/12/15 [History] Diltiazem HCl [Cardizem] 120 mg PO DAILY 10/16/15 [History] Insulin DETEMIR [Levemir] 10 unit SQ HS 10/16/15 [History] Loperamide [Imodium] 2 mg PO Q4HR PRN 10/16/15 [History] TraMADol [Ultram] 25 mg PO BID 10/16/15 [History] LORazepam [Ativan] 0.5 mg PO HS PRN #30 tablet 04/05/16 [Rx] Pregabalin [Lyrica] 75 mg PO Q24H #30 capsule 04/05/16 [Rx] Tramadol HCl [Ultram] 25 mg PO BID PRN #60 tab 04/05/16 [Rx] Allergies/Adverse Reactions: Allergies Iodinated Contrast Media - Oral and Allergy (Verified 04/03/16 19:37) See Comments UNABLE TO CONFIRM REACTIONS- ALL ALLERGIES OBTAINED THROUGH [facility] LAST APPT. Penicillins Allergy (Verified 04/03/16 19:37) See Comments UNABLE TO CONFIRM REACTIONS- ALL ALLERGIES OBTAINED THROUGH [facility] LAST APPT. povidone-iodine [From Betadine] Allergy (Verified 04/03/16 19:37) See Comments UNABLE TO CONFIRM REACTIONS- ALL ALLERGIES OBTAINED THROUGH [facility] LAST APPT. soap [From Betadine] Allergy (Verified 04/03/16 19:37) See Comments UNABLE TO CONFIRM REACTIONS- ALL ALLERGIES OBTAINED THROUGH [facility] LAST APPT. Sulfa (Sulfonamide Antibiotics) Allergy (Verified 04/03/16 19:37) See Comments UNABLE TO CONFIRM REACTIONS- ALL ALLERGIES OBTAINED THROUGH [facility] LAST APPT. Procedures/tests Complete & Pending: Procedures Performed prior 72 hours Category Date Time Status ECG 12 lead ECG [ECG] Routine Y 04/04/16 12:00 Completed Date of admission: 04/03/16 17:39 Primary care physician: PCP NO Consults: 04/03/16 19:37 Consult to Occupational Therapy [CONS] Routine Comment: Evaluate, develop and implement POC Consult to Physical Therapy [CONS] Routine Comment: Evaluate, develop and implement POC 04/03/16 21:32 Consult to Pastoral Services [CONS] Routine Comment: 04/04/16 08:15 Consult to Dialysis [CONS] ONCE 04/05/16 08:30 Consult to Dialysis [CONS] ONCE 04/05/16 10:16 Consult to Conference Planner [CONS] Routine Reason for SW Consult: pt a resident of [facility] Discharging clinician: Mya Latham Anticipated date of discharge: 04/05/16 - Patient Status Disposition: Home, Self-Care Condition: Fair Functional capacity at discharge: uses cane/walker Overall status at discharge: patient is back to baseline - Discharge Instructions Follow Up With: RENETTA,PCP [Primary Care Provider] - - Diet and Activity Activity: as per physical therapy Diet: other (renal diet) Interval History: This is an 86-year-old female with end-stage renal disease related to diabetes. She receives dialysis every Saturday in [place]. Patient was admitted from the long term with complaints of intermittent pain in her legs and feet likely related to peripheral sensory neuropathy. Patient says she has periods of increasing pain that lasts for about an hour or so. Currently she said her pain is under good control. The long term she takes Lyrica as well as narcotic analgesics. Otherwise she says she is feeling well. She denies any shortness of breath chest pain fevers chills nausea vomiting. Clinically she actually looks quite well. She has minimal swelling. Her chest x-ray is clear. She is alert and oriented and in no obvious distress. Hospital course: She was admitted for severe intractable pain to both her arms during dialysis as per the patient. She remained overnight in the hospital and next day she did not have any pain. Her medication was adjusted, Lyrica to 75 daily given ESRD on hemodialysis. IV narcotics was avoided and was continued on tramadol and oxycodone for the pain. Nephrology was consulted for maintenance hemodialysis. She remained stable without pain requiring IV narcotics. She is being discharged today in stable condition. Time spent discussing smoking cessation with patient: more than 10 minutes - Time Spent with Patient Total time spent providing and/or coordinating discharge services: Greater than 30 minutes - Constitutional Vitals: Temp Pulse Resp BP Pulse Ox 97.2 F L 88 20 129/99 92 L 04/05/16 12:47 04/05/16 07:37 04/05/16 12:47 04/05/16 12:47 04/05/16 08:28 General appearance: Present: A&O X 3, morbidly obese, no acute distress, answers questions appropriately Exam: neck- supple chest- b/l clear, no added sounds CVS-s1 and s2,no m/r/g abd- soft, non tender, bs are present ext- no edema, no tenderness. neuro- no focal defecits. - VTE Documentation of Mechanical Device: Intermittent pneumatic compression device
--- NOTE | 2016-04-05 14:13 | Electrocardiograph Report ---
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
--- NOTE | 2016-04-05 14:39 | Physician Discharge Referral ---
ExtendedCare Referral Info Transfer To: ECF Provider in Charge: ayla goins Institutional Level of Care: Skilled - Diagnosis (1) Diabetic peripheral autonomic neuropathy Status: Acute (2) ESRD (end stage renal disease) Status: Acute (3) Intractable neuropathic pain of lower extremity Status: Acute - Transfer Medications Prescriptions: Pregabalin [Lyrica] 75 mg PO Q24H #30 capsule Home Medications: Acetaminophen [Tylenol] 650 mg PO Q6H PRN 04/14/15 [History] Allopurinol [Zyloprim 100 MG] 100 mg PO DAILY 04/14/15 [History] Aspirin 81 mg PO DAILY 04/14/15 [History] Clopidogrel [Plavix] 75 mg PO DAILY 04/14/15 [History] Docusate Sodium [Colace] 100 mg PO DAILY 04/14/15 [History] Furosemide [Lasix] 80 mg PO SUTUTHSA 04/14/15 [History] Insulin LISPRO [HumaLOG] 2 - 14 units SQ TIDAC 04/14/15 [History] Ipratropium/Albuterol Neb [Duoneb] 3 ml IH Q6HR 04/14/15 [History] Omeprazole [PriLOSEC] 20 mg PO DAILY 04/14/15 [History] Sevelamer [Renvela] 800 mg PO TIDWM 04/14/15 [History] Ascorbate Calcium [Vitamin C] 500 mg PO DAILY 06/05/15 [History] Diclofenac Sodium [Voltaren] 2 gm TP QID PRN 06/05/15 [History] Duloxetine [Cymbalta] 60 mg PO DAILY 06/05/15 [History] Carvedilol [Coreg] 6.25 mg PO BID 08/12/15 [History] Diltiazem HCl [Cardizem] 120 mg PO DAILY 10/16/15 [History] Insulin DETEMIR [Levemir] 10 unit SQ HS 10/16/15 [History] LORazepam [Ativan] 0.5 mg PO HS PRN 10/16/15 [History] Loperamide [Imodium] 2 mg PO Q4HR PRN 10/16/15 [History] TraMADol [Ultram] 25 mg PO BID 10/16/15 [History] Pregabalin [Lyrica] 75 mg PO Q24H #30 capsule 04/05/16 [Rx] Allergies/Adverse Reactions: Allergies Iodinated Contrast Media - Oral and Allergy (Verified 04/03/16 19:37) See Comments UNABLE TO CONFIRM REACTIONS- ALL ALLERGIES OBTAINED THROUGH [facility] LAST APPT. Penicillins Allergy (Verified 04/03/16 19:37) See Comments UNABLE TO CONFIRM REACTIONS- ALL ALLERGIES OBTAINED THROUGH [facility] LAST APPT. povidone-iodine [From Betadine] Allergy (Verified 04/03/16 19:37) See Comments UNABLE TO CONFIRM REACTIONS- ALL ALLERGIES OBTAINED THROUGH [facility] LAST APPT. soap [From Betadine] Allergy (Verified 04/03/16 19:37) See Comments UNABLE TO CONFIRM REACTIONS- ALL ALLERGIES OBTAINED THROUGH [facility] LAST APPT. Sulfa (Sulfonamide Antibiotics) Allergy (Verified 04/03/16 19:37) See Comments UNABLE TO CONFIRM REACTIONS- ALL ALLERGIES OBTAINED THROUGH [facility] LAST APPT. - Respiratory Orders Smoking Cessation: Smoking cessation has been advised. For more information, call the [place] Tobacco Quit Line at 6-825-QUXC-NOW. CERTIFICATION: I certify that the transfer of the above named patient to an Extended Care Facility is necessary for the continuing treatment of the diagnosis listed. The above information is true and accurate reflection of patient's current condition. Confidential - Redisclosure prohibited without a patient's written consent.
[2016-04-05 15:58] VITALS: BP 91/54
[2016-04-06 08:38] LABS: C-Peptide 3.7 ng/mL (0.8-3.5)
[2016-04-06] MEDS ORDERED: 0.9 % Sodium Chloride 250 ML IV PRN (09:21)
[2016-04-06 11:33] LABS: Hepatitis B Surface Antibody 1.54 mIU/mL
[2016-04-07 11:34] LABS: MMA (VIT B12 STATUS) 1.59 umol/L (0.00-0.40)
== END 2016-04-05 17:00 ==
LOC: 2NENU 13:13 → EMEROO 13:13 → 2NENU 19:25 → 2ANU 22:45
PROVIDERS: ADMIT Internal Medicine; ATTEND Internal Medicine

== ENCOUNTER 2016-05-09 17:54 | Inpatient (IN) ==
[2016-05-09] MEDS ORDERED: Aspirin 81 MG TAB.CHEW PO ONE (18:17)
--- NOTE | 2016-05-09 18:51 | Emergency Department Note ---
Disposition Clinical Impression: Hypertension, Diabetes mellitus, Dyslipidemia, Frailty, Renal failure, ESRD ( end stage renal disease), Anemia in chronic kidney disease (CKD), CAD (coronary artery disease), Abnormal EKG, Pleural effusion Chest pain Qualifiers: Qualified Code(s): R07.9 - COPD (chronic obstructive pulmonary disease) Qualifiers: Qualified Code(s): J44.9 - Disposition: Admitted As Inpatient Condition: Fair General Adult HPI - General Chief complaint: ED Chest Pain Stated complaint: Chest Pain Time Seen by Provider: 05/09/16 18:35 Source: patient, EMS Limitations: no limitations - History of Present Illness HPI Narrative: 86-year-old female with chronic renal failure came from the dialysis center secondary to chest pressure. She was given nitroglycerin which seemed to help. The patient has known CAD CHF diabetes hyperlipidemia hypertension and chronic kidney disease. The patient denies any shortness of breath. There is no history of trauma. She has had a significant and coarse cough There is no history of fever. There is been no abdominal pain vomiting or diarrhea no trouble moving the arms or legs independently. No unilateral leg swelling no syncope or coughing up blood. There is no history of confusion. No difficulty moving the arms or legs independently no unilateral upper or lower extremity weakness, no slurred speech. There is no history of fever or acute back pain. The patient does not usually have chest pain. She denies any other complaints or concerns. Apart from a cough, which did not seem to be related to her chest pain, she was in her usual state of health prior to going to dialysis when she developed the chest pain. They stopped dialysis and sent her in by EMS for further evaluation. Onset (ago): Just CHRO Pain Scale: 0 - Related Data Home Medications Medication Instructions Recorded Confirmed RX: Acetaminophen [Tylenol] 650 mg PO Q4H PRN 04/14/15 05/09/16 RX: Allopurinol [Zyloprim 100 MG] 100 mg PO DAILY 04/14/15 05/09/16 RX: Aspirin 81 mg PO DAILY 04/14/15 05/09/16 RX: Clopidogrel [Plavix] 75 mg PO DAILY 04/14/15 05/09/16 RX: Docusate Sodium [Colace] 100 mg PO DAILY 04/14/15 05/09/16 RX: Insulin LISPRO [HumaLOG] 2 - 12 units SQ TIDAC 04/14/15 05/09/16 RX: Ipratropium/Albuterol Neb 3 ml IH Q6HR 04/14/15 05/09/16 [Duoneb] RX: Omeprazole [PriLOSEC] 20 mg PO DAILY 04/14/15 05/09/16 RX: Sevelamer [Renvela] 800 mg PO TIDWM 04/14/15 05/09/16 RX: Ascorbate Calcium [Vitamin C] 500 mg PO DAILY 06/05/15 05/09/16 RX: Diclofenac Sodium [Voltaren] 2 gm TP QID PRN 06/05/15 05/09/16 RX: Duloxetine [Cymbalta] 60 mg PO DAILY 06/05/15 05/09/16 RX: Carvedilol [Coreg] 6.25 mg PO BID 08/12/15 05/09/16 RX: Diltiazem HCl [Cardizem] 120 mg PO DAILY 10/16/15 05/09/16 RX: Insulin DETEMIR [Levemir] 10 unit SQ HS 10/16/15 05/09/16 RX: Loperamide [Imodium] 2 mg PO Q4HR PRN 10/16/15 05/09/16 GuaiFENesin Liq [Robitussin Liq] 100 mg PO Q4H PRN 05/09/16 05/09/16 Hydrocortisone [Proctozone-Hc] 1 appl RC QID PRN 05/09/16 05/09/16 Pregabalin [Lyrica] 50 mg PO BID 05/09/16 05/09/16 Promethazine [Phenergan] 25 mg PO Q4H PRN 05/09/16 05/09/16 RX: Ethyl Chloride 1 appl TP AD PRN 05/09/16 05/09/16 RX: LORazepam [Ativan] 0.5 mg PO HS 05/09/16 05/09/16 RX: Tramadol HCl [Ultram] 25 mg PO BID 05/09/16 05/09/16 Citlalli-D Compound Cream 1 appl TP QID 05/09/16 05/09/16 Allergies Allergy/AdvReac Type Severity Reaction Status Date / Time Iodinated Contrast Media - Allergy See Verified 04/03/16 19:37 Oral and Comments Penicillins Allergy See Verified 04/03/16 19:37 Comments povidone-iodine Allergy See Verified 04/03/16 19:37 [From Betadine] Comments soap [From Betadine] Allergy See Verified 04/03/16 19:37 Comments Sulfa (Sulfonamide Allergy See Verified 04/03/16 19:37 Antibiotics) Comments All systems ED: reviewed and negative except as stated. Past Medical History - Past Medical History Medical history: Reports: arthritis, asthma, atrial fibrillation, cardiomyopathy , CHF, COPD, coronary artery disease, diabetes, dialysis, GERD, hyperlipidemia, hypertension, osteoporosis, renal disease, venous stasis, valvular heart disease , other Surgical history: Reports: angioplasty/stent, hysterectomy, knee replacement, orthopedic, other, CHRISTY/BSO, other (Left arm AV fistula placement), vascular surgery Psychiatric history: Reports: anxiety, depression, other [employer] history: Reports: non-contributory - Social History Smoking Status: Never smoker Smokeless Tobacco Status: No Alcohol use: Reports: rarely Drug use: Reports: none Physical Exam - General Limitations: no limitations General appearance: alert, in no apparent distress - Head Head exam: atraumatic, normocephalic, normal inspection - Eye Eye exam: Present: normal appearance, PERRL, EOMI. Absent: scleral icterus, conjunctival injection, miosis, mydriasis - ENT ENT exam: normal exam, normal oropharynx, mucous membranes moist, TM's normal bilaterally, normal external ear exam - Neck Neck exam: Present: normal inspection, full ROM, trachea midline - Chest Chest inspection: Present: normal inspection, symmetric chest wall rise. Absent : tenderness - Respiratory Respiratory exam: Present: normal lung sounds bilaterally. Absent: respiratory distress - Cardiovascular Cardiovascular exam: Present: regular rate, normal rhythm, normal heart sounds - Abdominal Exam Abdominal exam: Present: soft, Non-Tender, normal bowel sounds. Absent: tenderness, distention, guarding, rebound, rigidity, trauma, pulsatile mass - Extremities Exam Extremities exam: Present: full ROM, normal capillary refill, pedal edema, other (All 4 extremities are warm and well-perfused and generally supple without evidence of acute trauma, some lower extremity edema is noted. No evidence of neurovascular or neuromuscular compromise.). Absent: tenderness, joint swelling, calf tenderness - Expanded Lower Extremity Exam Hip/Pelvis exam: Present: full ROM. Absent: tenderness Upper leg exam: Present: full ROM. Absent: tenderness Knee exam: Present: full ROM. Absent: tenderness Lower leg exam: Present: full ROM. Absent: tenderness, Homans' sign Ankle exam: Present: full ROM, tenderness Course Vital Signs Temperature 97.3 F L 05/09/16 17:55 Pulse Rate 90 05/09/16 17:55 Respiratory Rate 18 05/09/16 17:55 Blood Pressure 116/71 05/09/16 17:55 O2 Sat by Pulse Oximetry 96 05/09/16 17:55 Temperature 97.5 F L 05/09/16 22:25 Pulse Rate 72 05/09/16 22:25 Respiratory Rate 18 05/09/16 22:25 Blood Pressure 96/56 05/09/16 22:25 O2 Sat by Pulse Oximetry 98 05/09/16 22:25 Oxygen Delivery Oxygen Delivery Room Air Medical Decision Making - MDM Narrative Medical decision making narrative: Patient is 86 years old, his history of coronary disease, diabetes, hyperlipidemia, and hypertension, she is end-stage renal disease on dialysis and was complaining of chest pain. Based on her age and significant risk factors for ACS, I think would be appropriate to admit the patient to the hospital for further evaluation. The patient also has what appears to be a loculated pleural effusion associated with an elevated white count and heart rate over 90 suggestive of sepsis. The patient is from a nursing facility. She may have HCAP. The patient was given aspirin in the ED. Nitroglycerin seemed to relieve her pain. Antibiotics were ordered. The patient appears to be stable at this time. I discussed the case with the hospitalist on-call who has accepted the patient to their care, the patient's lactate level is negative , cautious hydration secondary to renal failure and a history of heart failure as well as CAD is warranted, FEN per the admitting service. - Lab Data Lab results reviewed: Yes I reviewed the patient's lab results. Result diagrams: 05/09/16 19:11 05/09/16 19:11 Lab Results 05/09/16 05/09/16 05/09/16 Range/Units 19:11 19:11 19:11 WBC (4.3-11.1) K/mcL RBC (3.82-4.97) M/mcL Hgb (11.5-15.4) g/dL Hct (35.3-44.9) % MCV (83.0-100.0) fL MCH (28.0-33.3) pg MCHC (31.6-35.5) g/dL RDW (11.5-14.5) % Plt Count (140-400) K/mcL MPV (9.4-12.4) fL Immature Gran % (0-4) % Seg Neutrophils % % Lymphocytes % % Monocytes % % Eosinophils % % Basophils % % Neutrophils # (1.6-8.9) K/mcL Lymphocytes # (0.6-4.6) K/mcL Monocytes # (0.0-1.3) K/mcL Eosinophils # (0.0-0.6) K/mcL Basophils # (0.0-0.2) K/mcL PT 11.0 (9.4-12.1) Seconds INR 1.0 APTT 20.4 L (26.0-36.0) Seconds Sodium (136-145) mEq/L Potassium (3.5-4.5) mEq/L Chloride (98-109) mEq/L Carbon Dioxide (19-29) mEq/L BUN (7-20) mg/dL Creatinine (0.57-1.11) mg/dL Est GFR ( Amer) (> 60) Est GFR (Non-Af Amer) (> 60) BUN/Creatinine Ratio (6-26) Glucose (70-99) mg/dL Calculated Osmolality (280-300) Lactic Acid 1.5 (0.5-2.2) mmol/L Calcium (8.6-10.8) mg/dL Total Bilirubin (0.2-1.2) mg/dL Direct Bilirubin (0.0-0.5) mg/dL Indirect Bilirubin (0.0-1.2) mg/dL AST (5-34) Units/L ALT (0-55) Units/L Alkaline Phosphatase (38-126) Units/L Troponin I (0-0.03) ng/mL C-Reactive Protein (Less than 5) mg/L B-Natriuretic Peptide 413 H (0-100) pg/mL Serum Total Protein (6.0-8.3) g/dL Albumin (3.5-5.0) g/dL Globulin (2.4-3.5) g/dL Albumin/Globulin Ratio (1.1-2.2) Lipase (8-78) Units/L 05/09/16 05/09/16 05/09/16 Range/Units 19:11 19:11 19:11 WBC 12.3 H (4.3-11.1) K/mcL RBC 3.27 L (3.82-4.97) M/mcL Hgb 10.5 L (11.5-15.4) g/dL Hct 32.9 L (35.3-44.9) % MCV 100.6 H (83.0-100.0) fL MCH 32.1 (28.0-33.3) pg MCHC 31.9 (31.6-35.5) g/dL RDW 15.2 H (11.5-14.5) % Plt Count 278 (140-400) K/mcL MPV 9.9 (9.4-12.4) fL Immature Gran % 0.9 (0-4) % Seg Neutrophils % 70.1 % Lymphocytes % 11.2 % Monocytes % 8.6 % Eosinophils % 8.5 % Basophils % 0.7 % Neutrophils # 8.6 (1.6-8.9) K/mcL Lymphocytes # 1.4 (0.6-4.6) K/mcL Monocytes # 1.1 (0.0-1.3) K/mcL Eosinophils # 1.0 H (0.0-0.6) K/mcL Basophils # 0.1 (0.0-0.2) K/mcL PT (9.4-12.1) Seconds INR APTT (26.0-36.0) Seconds Sodium 139 (136-145) mEq/L Potassium 4.0 (3.5-4.5) mEq/L Chloride 98 (98-109) mEq/L Carbon Dioxide 28 (19-29) mEq/L BUN 30 H (7-20) mg/dL Creatinine 3.64 H (0.57-1.11) mg/dL Est GFR ( Amer) 14 L (> 60) Est GFR (Non-Af Amer) 12 L (> 60) BUN/Creatinine Ratio 8 (6-26) Glucose 130 H (70-99) mg/dL Calculated Osmolality 296 (280-300) Lactic Acid (0.5-2.2) mmol/L Calcium 10.1 (8.6-10.8) mg/dL Total Bilirubin 0.4 (0.2-1.2) mg/dL Direct Bilirubin 0.2 (0.0-0.5) mg/dL Indirect Bilirubin 0.2 (0.0-1.2) mg/dL AST 12 (5-34) Units/L ALT 11 (0-55) Units/L Alkaline Phosphatase 195 H (38-126) Units/L Troponin I 0.01 (0-0.03) ng/mL C-Reactive Protein 62 H (Less than 5) mg/L B-Natriuretic Peptide (0-100) pg/mL Serum Total Protein 8.0 (6.0-8.3) g/dL Albumin 3.1 L (3.5-5.0) g/dL Globulin 4.9 H (2.4-3.5) g/dL Albumin/Globulin Ratio 0.6 L (1.1-2.2) Lipase 28 (8-78) Units/L - Radiology Data Radiology results reviewed: Yes I reviewed the patient's radiology results.
[2016-05-09 19:31] LABS: Basophils # 0.1 K/mcL (0.0-0.2); Basophils % 0.7 %; Eosinophils % 8.5 %; Hematocrit 32.9 % (35.3-44.9); Hemoglobin 10.5 g/dL (11.5-15.4); Immature Granulocytes % 0.9 % (0-4); Lymphocytes # 1.4 K/mcL (0.6-4.6); Lymphocytes % 11.2 %; Mean Corpuscular HGB Conc 31.9 g/dL (31.6-35.5); Mean Corpuscular Hemoglobin 32.1 pg (28.0-33.3); Mean Corpuscular Volume 100.6 fL (83.0-100.0); Mean Platelet Volume 9.9 fL (9.4-12.4); Monocytes # 1.1 K/mcL (0.0-1.3); Monocytes % 8.6 %; Neutrophils # 8.6 K/mcL (1.6-8.9); Platelet Count 278 K/mcL (140-400); Red Blood Count 3.27 M/mcL (3.82-4.97); Red Cell Distribution Width 15.2 % (11.5-14.5); Segmented Neutrophils % 70.1 %
[2016-05-09 19:35] LABS: Activated Partial Thrombo Time 20.4 Seconds (26.0-36.0)
[2016-05-09 19:39] LABS: Albumin 3.1 g/dL (3.5-5.0); Albumin/Globulin Ratio 0.6 (1.1-2.2); Bilirubin,Direct 0.2 mg/dL (0.0-0.5); Bilirubin,Indirect 0.2 mg/dL (0.0-1.2); Bilirubin,Total 0.4 mg/dL (0.2-1.2); Calcium 10.1 mg/dL (8.6-10.8); Globulin 4.9 g/dL (2.4-3.5)
[2016-05-09] MEDS ORDERED: Levofloxacin 750 MG/150 ML 750 MG/150 ML BAG IVPB ONE (19:49)
[2016-05-09] MEDS ORDERED: Vancomycin 1,000 MG in D5% in Water 250 ML IVPB ONE (19:55)
--- NOTE | 2016-05-09 21:51 | Internal Med History&Physical ---
Date of Encounter: 05/09/16 Time of Encounter: 21:48 Assessment and Plan (1) HCAP (healthcare-associated pneumonia) Current visit: Yes Status: Acute Suspected pneumonia. Patient has fever cough and leukocytosis. CRP is 60. Will treat for suspected pneumonia cover for Pseudomonas and MRSA. Will start vancomycin and as aZTREONAM. Check sputum cultures and blood cultures (2) Chest pain Current visit: Yes Status: Acute We have to rule of acute coronary syndrome. Initial troponin normal. EKG shows no ST segment shifts. serial troponin and time actually monitoring. Continue aspirin Plavix and beta blockers. Qualifiers: Qualified Code(s): R07.9 - Chest pain, unspecified (3) ESRD (end stage renal disease) Current visit: Yes Status: Acute Hemodialysis Saturday. She dialyzed a full Session today. Nephrology consultation (4) COPD (chronic obstructive pulmonary disease) Current visit: Yes Status: Chronic Stable no active wheezing no need for steroids. Qualifiers: Qualified Code(s): J44.9 - Chronic obstructive pulmonary disease, unspecified (5) A-fib Current visit: No Status: Acute She is not an anticoagulation. She is currently in normal sinus rhythm Qualifiers: Atrial fibrillation type: paroxysmal Qualified Code(s): I48.0 - Paroxysmal atrial fibrillation (6) DM (diabetes mellitus), type 2 with renal complications Current visit: No Status: Chronic Sliding scale insulin. Qualifiers: Diabetes mellitus complication detail: with chronic kidney disease Diabetes mellitus correction insulin use: with long term care administrator use Chronic kidney disease stage: on chronic dialysis Qualified Code(s): E11.22 - Type 2 diabetes mellitus with diabetic chronic kidney disease; N18.6 - End stage renal disease; Z79.4 - penitentiary (current) use of insulin; Z99.2 - Dependence on renal dialysis Internal Medicine - H&P: HPI Chief complaint: chest pain History of present illness: Ms. Crowder is a 86 year old female with multiple medical problems including end- stage renal disease on hemodialysis Saturday presents the emergency room today with the main complaining of chest pain. During her dialysis today patient started experiencing retro sternal chest pain radiating to the left shoulder. Pain lasted approximately for a period of 2 hours. She noted some improvement with sublingual nitroglycerin. Nice any prior similar problems she does not recall having any occlusive coronary disease. One further interrogation patient as well as her daughter mentioned that she has been coughing more than usual the past few days since Saturday. She had actually to be started in the assisted on . She had a fever today according to the patient the 103. Patient lives in a assisted but goes to her family on the weekend. Past Med Surg Social Fam HX - Past Medical History Medical history: arthritis, asthma, atrial fibrillation, cardiomyopathy, CHF, COPD, coronary artery disease, diabetes, dialysis, GERD, hyperlipidemia, hypertension, osteoporosis, renal disease, venous stasis, valvular heart disease , other Psychiatric history: anxiety, depression, other - Past Surgical History Surgical History: angioplasty/stent, hysterectomy, knee replacement, orthopedic , other, CHRISTY/BSO, other (Left arm AV fistula placement), vascular surgery - Social History Smoking Status: Never smoker Smokeless Tobacco Status: No Alcohol use: rarely Drug use: none - Family History Son Living Status: Still Living Hx Family Cardiac Disorders: Yes (heart problems) Father Living Status: Hx Family Cardiac Disorders: Yes Hx Family Respiratory Disorders: No Hx Family Cancer: Yes Hx Family GI Disorders: No Hx Family Endocrine Disorder: Yes (DM) Hx Family Neuromuscular Disorders: No Hx Family Neurologic Disorders: Yes Hx Family HEENT Disorders: No Hx Family Autoimmune Disorders: No Mother Living Status: Hx Family Cardiac Disorders: No Hx Family Respiratory Disorders: No Hx Family Cancer: No Hx Family GI Disorders: No Hx Family Endocrine Disorder: No Hx Family Neuromuscular Disorders: No Hx Family Neurologic Disorders: No Hx Family HEENT Disorders: No Hx Family Autoimmune Disorders: No Internal Medicine - H&P: Meds Acetaminophen [Tylenol] 650 mg PO Q4H PRN 04/14/15 [History] Allopurinol [Zyloprim 100 MG] 100 mg PO DAILY 04/14/15 [History] Aspirin 81 mg PO DAILY 04/14/15 [History] Clopidogrel [Plavix] 75 mg PO DAILY 04/14/15 [History] Docusate Sodium [Colace] 100 mg PO DAILY 04/14/15 [History] Insulin LISPRO [HumaLOG] 2 - 12 units SQ TIDAC 04/14/15 [History] Ipratropium/Albuterol Neb [Duoneb] 3 ml IH Q6HR 04/14/15 [History] Omeprazole [PriLOSEC] 20 mg PO DAILY 04/14/15 [History] Sevelamer [Renvela] 800 mg PO TIDWM 04/14/15 [History] Ascorbate Calcium [Vitamin C] 500 mg PO DAILY 06/05/15 [History] Diclofenac Sodium [Voltaren] 2 gm TP QID PRN 06/05/15 [History] Duloxetine [Cymbalta] 60 mg PO DAILY 06/05/15 [History] Carvedilol [Coreg] 6.25 mg PO BID 08/12/15 [History] Diltiazem HCl [Cardizem] 120 mg PO DAILY 10/16/15 [History] Insulin DETEMIR [Levemir] 10 unit SQ HS 10/16/15 [History] Loperamide [Imodium] 2 mg PO Q4HR PRN 10/16/15 [History] Ethyl Chloride 1 appl TP AD PRN 05/09/16 [History] GuaiFENesin Liq [Robitussin Liq] 100 mg PO Q4H PRN 05/09/16 [History] Hydrocortisone [Proctozone-Hc] 1 appl RC QID PRN 05/09/16 [History] LORazepam [Ativan] 0.5 mg PO HS 05/09/16 [History] Pregabalin [Lyrica] 50 mg PO BID 05/09/16 [History] Promethazine [Phenergan] 25 mg PO Q4H PRN 05/09/16 [History] Citlalli-D Compound Cream 1 appl TP QID 05/09/16 [History] Tramadol HCl [Ultram] 25 mg PO BID 05/09/16 [History] Allergies Iodinated Contrast Media - Oral and Allergy (Verified 04/03/16 19:37) See Comments UNABLE TO CONFIRM REACTIONS- ALL ALLERGIES OBTAINED THROUGH [facility] LAST APPT. Penicillins Allergy (Verified 04/03/16 19:37) See Comments UNABLE TO CONFIRM REACTIONS- ALL ALLERGIES OBTAINED THROUGH [facility] LAST APPT. povidone-iodine [From Betadine] Allergy (Verified 04/03/16 19:37) See Comments UNABLE TO CONFIRM REACTIONS- ALL ALLERGIES OBTAINED THROUGH [facility] LAST APPT. soap [From Betadine] Allergy (Verified 04/03/16 19:37) See Comments UNABLE TO CONFIRM REACTIONS- ALL ALLERGIES OBTAINED THROUGH [facility] LAST APPT. Sulfa (Sulfonamide Antibiotics) Allergy (Verified 04/03/16 19:37) See Comments UNABLE TO CONFIRM REACTIONS- ALL ALLERGIES OBTAINED THROUGH [facility] LAST APPT. All Systems PM: A 10-system review of systems was performed and is negative for pertinent findings except as documented above in the HPI. Review of systems: 10 point review of systems is negative except for HPI - Constitutional Vitals: Temp Pulse Resp BP Pulse Ox 97.3 F L 96 18 104/43 96 05/09/16 17:55 05/09/16 20:55 05/09/16 21:03 05/09/16 21:03 05/09/16 20:55 Exam: Gen.: patient is alert oriented times 3 and often distress Ebony: normal S1 S2 nontraditional sounds are members chest: clear to auscultation I do not appreciate crackles or bronchial breathing abdomen: soft mound tender nondistended normal bowel sounds lower extremities: lax calf muscles pupils: 3 mm reactive Internal Med - H&P Results - Labs CBC & Chem 7: 05/09/16 19:11 05/09/16 19:11
[2016-05-09] MEDS ORDERED: Vancomycin 1,000 MG in D5% in Water 250 ML IVPB SCH (22:00)
[2016-05-09] MEDS ORDERED: Vancomycin 1,500 MG in D5% in Water 250 ML IVPB ONE (23:30)
[2016-05-09] MEDS: *HR* LORazepam 0.5 MG TABLET PO PRN (23:49)
[2016-05-09] MEDS: Aztreonam 1,000 MG in D5% in Water (Mini-Bag+) 100 ML IVPB SCH (23:51)
[2016-05-10] MEDS: Ipratropium/Albuterol Neb 3 ML IH SCH ×4 (04:21→22:47)
[2016-05-10] MEDS ORDERED: Hydrocortisone Acetate 25 MG RECTAL SUPPOSITORY RC PRN (05:25)
[2016-05-10 06:23] LABS: Hematocrit 28.8 % (35.3-44.9); Hemoglobin 9.3 g/dL (11.5-15.4); Mean Corpuscular HGB Conc 32.3 g/dL (31.6-35.5); Mean Corpuscular Hemoglobin 32.7 pg (28.0-33.3); Mean Corpuscular Volume 101.4 fL (83.0-100.0); Mean Platelet Volume 9.9 fL (9.4-12.4); Platelet Count 230 K/mcL (140-400); Red Blood Count 2.84 M/mcL (3.82-4.97); Red Cell Distribution Width 15.3 % (11.5-14.5)
[2016-05-10 06:42] LABS: Calcium 9.8 mg/dL (8.6-10.8); Magnesium 1.5 mg/dL (1.6-2.6); Potassium 4.3 mEq/L (3.5-4.5)
[2016-05-10] MEDS: Pregabalin 50 MG CAPSULE PO SCH ×2 (08:39→21:16)
[2016-05-10] MEDS: Aspirin 81 MG TAB.CHEW PO SCH (08:39)
[2016-05-10] MEDS: traMADol 50 MG TABLET PO SCH ×2 (08:40→21:16)
[2016-05-10] MEDS: Insulin LISPRO 300 UNITS/3 ML VIAL SQ SCH ×4 (08:40→21:43)
[2016-05-10] MEDS: Aztreonam 1,000 MG in D5% in Water (Mini-Bag+) 100 ML IVPB SCH ×2 (08:40→21:17)
--- NOTE | 2016-05-10 08:53 | Nephrology Consult Note ---
Date of Encounter: 05/10/16 Time of Encounter: 08:51 Assessment and Plan (1) ESRD (end stage renal disease) Current Visit: Yes Status: Acute The patient is stable from a dialysis perspective. She will continue undergo dialysis every Saturday. She will be placed on Aranesp for management of her anemia. (2) Chest pain Current Visit: Yes Status: Acute Qualifiers: Chest pain type: unspecified Qualified Code(s): R07.9 - Chest pain, unspecified (3) Anemia in chronic kidney disease (CKD) Current Visit: Yes Status: Chronic History of Present Illness - History of Present Illness This is an 86-year-old female with end-stage renal disease who receives dialysis every Saturday once her financial, the. Patient was on outpatient dialysis yesterday. The patient developed some chest pain as well as left arm pain. This was partially relieved with nitroglycerin. Subsequently the patient was transferred to the emergency room and admitted to the hospital for further evaluation and management. Patient currently remains chest pain-free. Troponin has peaked at 0.02. Chest x-ray suggests possible pneumonia. Patient does give a history of cough as well as sputum production. She says she also had a temperature of about 103 yesterday morning. The patient was afebrile when she was in dialysis. This morning the patient says she is feeling better. She denies any further chest pain. She denies any shortness of breath. She does continue to experience a cough. She has been started on empiric anabiotic' s. Past Med Surg Social Fam HX - Past Medical History Medical history: arthritis, asthma, atrial fibrillation, cardiomyopathy, CHF, COPD, coronary artery disease, diabetes, dialysis, GERD, hyperlipidemia, hypertension, osteoporosis, renal disease, venous stasis, valvular heart disease , other Psychiatric history: anxiety, depression, other - Past Surgical History Surgical History: angioplasty/stent, hysterectomy, knee replacement, orthopedic , other, CHRISTY/BSO, other (Left arm AV fistula placement), vascular surgery - Social History Smoking Status: Never smoker Smokeless Tobacco Status: No Alcohol use: rarely Drug use: none - Family History Son Living Status: Still Living Hx Family Cardiac Disorders: Yes (heart problems) Father Living Status: Hx Family Cardiac Disorders: Yes Hx Family Respiratory Disorders: No Hx Family Cancer: Yes Hx Family GI Disorders: No Hx Family Endocrine Disorder: Yes (DM) Hx Family Neuromuscular Disorders: No Hx Family Neurologic Disorders: Yes Hx Family HEENT Disorders: No Hx Family Autoimmune Disorders: No Mother Living Status: Hx Family Cardiac Disorders: No Hx Family Respiratory Disorders: No Hx Family Cancer: No Hx Family GI Disorders: No Hx Family Endocrine Disorder: No Hx Family Neuromuscular Disorders: No Hx Family Neurologic Disorders: No Hx Family HEENT Disorders: No Hx Family Autoimmune Disorders: No Medications and Allergies Acetaminophen [Tylenol] 650 mg PO Q4H PRN 04/14/15 [History] Allopurinol [Zyloprim 100 MG] 100 mg PO DAILY 04/14/15 [History] Aspirin 81 mg PO DAILY 04/14/15 [History] Clopidogrel [Plavix] 75 mg PO DAILY 04/14/15 [History] Docusate Sodium [Colace] 100 mg PO DAILY 04/14/15 [History] Insulin LISPRO [HumaLOG] 2 - 12 units SQ TIDAC 04/14/15 [History] Ipratropium/Albuterol Neb [Duoneb] 3 ml IH Q6HR 04/14/15 [History] Omeprazole [PriLOSEC] 20 mg PO DAILY 04/14/15 [History] Sevelamer [Renvela] 800 mg PO TIDWM 04/14/15 [History] Ascorbate Calcium [Vitamin C] 500 mg PO DAILY 06/05/15 [History] Diclofenac Sodium [Voltaren] 2 gm TP QID PRN 06/05/15 [History] Duloxetine [Cymbalta] 60 mg PO DAILY 06/05/15 [History] Carvedilol [Coreg] 6.25 mg PO BID 08/12/15 [History] Diltiazem HCl [Cardizem] 120 mg PO DAILY 10/16/15 [History] Insulin DETEMIR [Levemir] 10 unit SQ HS 10/16/15 [History] Loperamide [Imodium] 2 mg PO Q4HR PRN 10/16/15 [History] Ethyl Chloride 1 appl TP AD PRN 05/09/16 [History] GuaiFENesin Liq [Robitussin Liq] 100 mg PO Q4H PRN 05/09/16 [History] Hydrocortisone [Proctozone-Hc] 1 appl RC QID PRN 05/09/16 [History] LORazepam [Ativan] 0.5 mg PO HS 05/09/16 [History] Pregabalin [Lyrica] 50 mg PO BID 05/09/16 [History] Promethazine [Phenergan] 25 mg PO Q4H PRN 05/09/16 [History] Citlalli-D Compound Cream 1 appl TP QID 05/09/16 [History] Tramadol HCl [Ultram] 25 mg PO BID 05/09/16 [History] Allergies Iodinated Contrast Media - Oral and Allergy (Verified 04/03/16 19:37) See Comments UNABLE TO CONFIRM REACTIONS- ALL ALLERGIES OBTAINED THROUGH [facility] LAST APPT. Penicillins Allergy (Verified 04/03/16 19:37) See Comments UNABLE TO CONFIRM REACTIONS- ALL ALLERGIES OBTAINED THROUGH [facility] LAST APPT. povidone-iodine [From Betadine] Allergy (Verified 04/03/16 19:37) See Comments UNABLE TO CONFIRM REACTIONS- ALL ALLERGIES OBTAINED THROUGH [facility] LAST APPT. soap [From Betadine] Allergy (Verified 04/03/16 19:37) See Comments UNABLE TO CONFIRM REACTIONS- ALL ALLERGIES OBTAINED THROUGH [facility] LAST APPT. Sulfa (Sulfonamide Antibiotics) Allergy (Verified 04/03/16 19:37) See Comments UNABLE TO CONFIRM REACTIONS- ALL ALLERGIES OBTAINED THROUGH [facility] LAST APPT. Review of Systems Constitutional: as per HPI Eyes: bilateral: blurred vision (patient denies), diplopia (patient denies) Nose, mouth and throat: no dizziness, no headache(s) Cardiovascular: chest pain, chest pain at rest, dyspnea on exertion Respiratory: cough, dyspnea on exertion Gastrointestinal: no abdominal pain, no change in bowel habits Genitourinary Female: as per HPI Musculoskeletal: no muscle weakness, no numbness Integumentary: no hirsutism, no striae Neurological: as per HPI Psychiatric: no depression, no difficulty concentrating Endocrine: as per HPI Exam - Vital Signs Vital signs: Initial Vital Signs Temp Pulse Resp BP Pulse Ox 97.3 F L 90 18 116/71 96 05/09/16 17:55 05/09/16 17:55 05/09/16 17:55 05/09/16 17:55 05/09/16 17:55 Vital Signs - Last 8 Hours Temp Pulse Resp BP Pulse Ox 05/10/16 07:28 98.2 F 77 18 84/58 93 L 02/09/17 04:24 93 L 05/10/16 04:21 20 93 L 05/10/16 03:27 98.3 F 72 18 81/55 92 L Intake and Output 05/09/16 05/10/16 05/10/16 23:59 07:59 15:59 Intake Total 100 / 100 Output Total 0 / 0 Balance 100 / 100 Intake: IV Fluids 100 / 100 Azactam 1,000 MG In 100 / 100 Dextrose 5% (Minibag+) 100 ML 100 ML @ 200 mls/ hr IVPB Q12H [facility] Rx#: [id number] Oral 0 / 0 Output: Urine 0 / 0 Other: Weight 102.4 kg Blood Glucose* 153 Patient Weight 05/10/16 23:59 Weight 102.4 kg - General Appearance Exam: The patient is alert and oriented. She is in no acute distress. Patient is afebrile. Neck is supple. Lungs diminished breath sounds otherwise clear. Heart regular rate and rhythm with a 2/6 soft ejection murmur. Abdomen shows normal bowel sounds bruits masses or megaly or tenderness. Lower extremity show trace lower extremity swelling. There is a functioning AV fistula in the left arm. Results - Lab Results 05/10/16 06:12 05/10/16 06:12 Most recent lab results Calcium 9.8 mg/dL (8.6-10.8) 05/10/16 06:12 Magnesium 1.5 mg/dL (1.6-2.6) L 05/10/16 06:12 Consult Discharge Plan - Plan Referrals: Soren Flynn MD [Primary Care Provider] -
[2016-05-10] MEDS ORDERED: Ondansetron 4 MG/2 ML VIAL IVP PRN (10:49)
[2016-05-10] MEDS ORDERED: Ondansetron 4 MG/2 ML VIAL ONE (10:51)
[2016-05-10] MEDS ORDERED: 0.9 % Sodium Chloride 250 ML IVC ONE ×2 (11:31→13:00)
--- NOTE | 2016-05-10 11:38 | Internal Med Progress Note ---
Date of Encounter: 05/10/16 Time of Encounter: 11:00 - Assessment and plan (1) HCAP (healthcare-associated pneumonia) Current Visit: Yes Status: Acute Assessment and plan: HCAP Chest CT today with mucus plugging worse on the right, beonchitis and bronchioloitis, chronic stable lymphadenopathies and stable pulmonay nodules, Pulm HTN, and trace bilateral pleural effusions Follow blood cultures Send sputum cultures Check respiratory panel, monitor Vanco levels Patient is high risk for progression to sepsis (2) Hypotension Current Visit: Yes Status: Acute Assessment and plan: Patient with low blood pressures , initial transient response to dopamine Patient will be given gentle IV boluses At this time, she does not meet sepsis criteria , with no fever, tachycardia. She did have leukocytosis on admission which rapidly resolved I suspect she has some dehydration Will give gentle IV boluses and monitor closely Target MAP is 65-70 Qualifiers: Hypotension type: unspecified hypotension type Qualified Code(s): I95.9 - Hypotension, unspecified (3) ESRD (end stage renal disease) Current Visit: Yes Status: Chronic (4) CAD (coronary artery disease) Current Visit: Yes Status: Chronic Qualifiers: Coronary Disease-Associated Artery/Lesion type: [place] artery [place] vs. transplanted heart: [place] heart Associated angina: without angina Qualified Code(s): I25.10 - Atherosclerotic heart disease of [place] coronary artery without angina pectoris (5) Pleural effusion Current Visit: Yes Status: Acute Assessment and plan: Trace, will consult pulm for thoracentensis if there is no clinical improvement (6) Anemia in chronic kidney disease (CKD) Current Visit: Yes Status: Chronic Assessment and plan: Chronic, stable on aranesp, continue same (7) COPD (chronic obstructive pulmonary disease) Current Visit: Yes Status: Chronic Assessment and plan: Not in exacerbation Duonebs prn Qualifiers: COPD type: unspecified COPD Qualified Code(s): J44.9 - Chronic obstructive pulmonary disease, unspecified (8) Diabetes mellitus Current Visit: Yes Status: Chronic Assessment and plan: Sliding scale insulin for now Qualifiers: Diabetes mellitus type: type 2 Diabetes mellitus complication status: with kidney complications Diabetes mellitus complication detail: with chronic kidney disease 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: 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 detention insulin use status Chronic kidney disease stage: on chronic dialysis Qualified Code(s): E11.22 - Type 2 diabetes mellitus with diabetic chronic kidney disease; N18.6 - End stage renal disease (9) Dyslipidemia Current Visit: Yes Status: Chronic (10) Hypertension Current Visit: Yes Status: Chronic Assessment and plan: Currently hypotensive, continue to hold meds Qualifiers: Hypertension type: essential hypertension Qualified Code(s): I10 - Essential (primary) hypertension (11) A-fib Current Visit: Yes Status: Chronic Assessment and plan: Rate is controlled currently, not on anticoagulation Qualifiers: Atrial fibrillation type: paroxysmal Qualified Code(s): I48.0 - Paroxysmal atrial fibrillation (12) Chest pain Current Visit: Yes Status: Acute Assessment and plan: Resolved EKG non-ischemic Troponin negative X3 Continue home ASA and Plavix Obtain ECHO Qualifiers: Chest pain type: unspecified Qualified Code(s): R07.9 - Chest pain, unspecified - Subjective Interval history: 86 Y/O F with PMH of ESRD on HD, DM with Neuropathy, CAD, Afib, CMP, CHF, COPD, Obesity Patient is admitted for management of suspected HCAP She is noted to be hypertensive on chart review this morning She was started on dopamine, however, patient developed nausea and persistent vomiting, as well as tachycardia . Her BP however improved transiently She was seen at bedside with RN, sitting in a wheelchair at the door She verified hx of cough productive of sputum and one documented fever at home. also hx of chest pressure during HD yesterday. She is chest pain free at the moment Findings on admission with CXR finidngs suggestive of Pneumonia vs congestion, . Patient had been started on empiric antibiotics Chest CT ordered - Constitutional Vitals: Temp Pulse Resp BP Pulse Ox 98.2 F 91 18 92/57 93 L 05/10/16 07:28 05/10/16 10:48 05/10/16 07:28 05/10/16 10:48 05/10/16 07:28 General appearance: Present: A&O X 3, morbidly obese, pleasant, no acute distress - Head Head exam: Present: atraumatic - Eye Eye exam: Present: PERRL, conjuntiva pink, sclera anicteric - ENT ENT exam: Present: mucous membranes moist - Neck Neck exam general surgery: Present: normal inspection - Respiratory Respiratory exam: Present: rhonchi - Cardiovascular Cardiovascular exam: Present: irregular rhythm, +S1, +S2. Absent: diastolic murmur, gallop, rubs, systolic murmur, tachycardia - GI/Abdominal GI/Abdominal exam: Present: normal bowel sounds, soft, no peritoneal signs. Absent: distended, tenderness - Extremities Exam Extremities exam: Present: warm, radial pulses palpable and symetrical. Absent : calf tenderness, cyanotic, pedal edema - Neurological Exam Neurological exam: Present: CN II-XII intact, oriented X3, no focal deficits. Absent: pronater drift, facial droop, speech deficit - Skin Skin exam: Present: dry Internal Medicine: Result - Labs CBC & Chem 7: 05/10/16 06:12 05/10/16 06:12 Labs: Short CBC 05/10/16 Range/Units 06:12 WBC 10.6 (4.3-11.1) K/mcL Hgb 9.3 L (11.5-15.4) g/dL Hct 28.8 L (35.3-44.9) % Plt Count 230 (140-400) K/mcL BMP 05/10/16 06:12 Sodium 136 Potassium 4.3 Chloride 97 L Carbon Dioxide 22 BUN 38 H Creatinine 4.39 H Glucose 161 H Calcium 9.8 Cardiac Enzymes 05/10/16 05/10/16 Range/Units 00:31 06:12 Troponin I 0.02 0.01 (0-0.03) ng/mL - ABG Interpretation ABG results: PT/INR, D-dimer PT 11.0 Seconds (9.4-12.1) 05/09/16 19:11 - Impressions Impressions Chest CT 05/10/16 08:06 IMPRESSION: 1. Patchy airway secretions most prominent in the right lower lobe, potentially related to mucous plugging or bronchitis. 2. Right lower lobe airspace opacity with an appearance suggesting atelectasis. 3. Trace bilateral pleural effusions, larger on the right. 4. Patchy tree-in-bud opacities in the right lung consistent with infectious bronchiolitis. 5. Unchanged 0.7 cm x 0.4 cm part solid nodule in the right upper lobe, most likely related to prior infection or inflammation. Recommend follow-up chest CT in 1 year per the Fleischner Society recommendations for subsolid nodules as below. 6. Marked pulmonary artery dilation without cardiomegaly, an indeterminate finding that can be seen with pulmonary hypertension. 7. Moderate coronary atherosclerotic calcifications. 8. Small sliding hiatal hernia. RECOMMENDATIONS: Fleischner Society Recommendations for the Management of Subsolid Pulmonary Nodules Detected at CT: Solitary part-solid nodules 1. Initial follow-up CT at 3 months. 1. If persistent and solid component < 5mm, then yearly surveillance for a minimum of 3 years. Jesus et al. "Recommendations for the Management of Subsolid Pulmonary Nodules Detected at CT: A Statement from the Fleischner Society." Radiology: Volume 266: Number 1 - April 2012 D/ / Lyndon Villegas MD / Lyndon Villegas MD Interpreting Provider: Lyndon Villegas MD Consult Discharge Plan - Plan Referrals: Soren Flynn MD [Primary Care Provider] -
--- NOTE | 2016-05-10 16:28 | Electrocardiograph Report ---
[place] [id number] Test Date: 2016-05-09 Pat Name: Suzan Crowder Department: 103 Room: 2A43 Gender: F Roving Technician: : 1930 Requested By: Rito Melendez Order Number: [id number] Reading MD: Marko Bhatia Measurements Intervals [place] Rate: 92 P: 59 IA: 192 QRS: -47 QRSD: 124 T: 34 QT: 384 QTc: 434 Interpretive Statements SINUS RHYTHM WITH FREQUENT ECTOPIC PREMATURE COMPLEXES LEFT AXIS Electronically Signed On 05-10-2016 16:27:20 EST by Marko Bhatia
[2016-05-10 18:51] LABS: Adenovirus Not Detected (Not Detect); Bordetella Pertussis Not Detected (Not Detect); Chlamydophila pneumoniae Not Detected (Not Detect); Coronavirus 229E Not Detected (Not Detect); Coronavirus HKU1 Not Detected (Not Detect); Coronavirus NL63 Not Detected (Not Detect); Coronavirus OC43 Not Detected (Not Detect); Human Metapneumovirus Not Detected (Not Detect); Human Rhinovirus/Enterovirus Not Detected (Not Detect); Influenza A Subtype 2009 H1 Not Detected (Not Detect); Influenza A Untypeable Not Detected (Not Detect); Influenza B Not Detected (Not Detect); Mycoplasma pneumoniae Not Detected (Not Detect); Parainfluenza Virus 1 Not Detected (Not Detect); Parainfluenza Virus 2 Not Detected (Not Detect); Parainfluenza Virus 3 Not Detected (Not Detect); Parainfluenza Virus 4 Not Detected (Not Detect); Respiratory Syncytial Virus Not Detected (Not Detect)
[2016-05-11] MEDS: Ipratropium/Albuterol Neb 3 ML IH SCH ×3 (04:27→16:32)
[2016-05-11 06:41] LABS: Basophils # 0.1 K/mcL (0.0-0.2); Basophils % 0.7 %; Eosinophils # 0.9 K/mcL (0.0-0.6); Eosinophils % 9.2 %; Hematocrit 30.5 % (35.3-44.9); Immature Granulocytes % 0.7 % (0-4); Lymphocytes # 1.7 K/mcL (0.6-4.6); Lymphocytes % 16.7 %; Mean Corpuscular HGB Conc 29.5 g/dL (31.6-35.5); Mean Corpuscular Hemoglobin 31.4 pg (28.0-33.3); Mean Corpuscular Volume 106.3 fL (83.0-100.0); Mean Platelet Volume 10.4 fL (9.4-12.4); Monocytes % 13.2 %; Neutrophils # 6.1 K/mcL (1.6-8.9); Platelet Count 196 K/mcL (140-400); Red Blood Count 2.87 M/mcL (3.82-4.97); Red Cell Distribution Width 15.1 % (11.5-14.5); Segmented Neutrophils % 59.5 %
[2016-05-11] MEDS: Aspirin 81 MG TAB.CHEW PO SCH (06:45)
[2016-05-11] MEDS: Pregabalin 50 MG CAPSULE PO SCH ×2 (06:45→22:13)
[2016-05-11 07:04] LABS: Albumin 2.5 g/dL (3.5-5.0); Albumin/Globulin Ratio 0.6 (1.1-2.2); Bilirubin,Total 0.3 mg/dL (0.2-1.2); Calcium 9.6 mg/dL (8.6-10.8); Globulin 3.9 g/dL (2.4-3.5); Monocytes # 1.4 K/mcL (0.0-1.3); Platelet Estimate Decreased (Normal); Potassium 5.1 mEq/L (3.5-4.5); Total Protein 6.4 g/dL (6.0-8.3)
[2016-05-11 07:05] LABS: Anisocytosis 1+ (Not Present)
[2016-05-11 07:16] LABS: Vancomycin,Random 18.7 mcg/mL
[2016-05-11] MEDS: Insulin LISPRO 300 UNITS/3 ML VIAL SQ SCH ×4 (08:15→22:15)
[2016-05-11] MEDS: traMADol 50 MG TABLET PO SCH ×2 (08:28→22:13)
[2016-05-11] MEDS: Aztreonam 1,000 MG in D5% in Water (Mini-Bag+) 100 ML IVPB SCH (08:37)
[2016-05-11] MEDS: Diltiazem CD (24hr) 120 MG CAPSULE PO SCH (08:37)
--- NOTE | 2016-05-11 09:51 | ECHO - Doppler Report ---
Echocardiogram Name: Suzan Crowder Date of Study: 05/10/2016 Date: 1930 Ht: 59.0 in Medical Record#: [id number] Age: 86 Wt: 225.0 lb Gender: Female BSA: 1.94 Order #: [id number] Location: [facility] Room #: 2A43 Reading Physician: Joaquin Escobar DO, JEREMIAH, GRIFFIN SMITH Dough Raiser: Radha Laird Ordering Physician: Ousmane Rogers MD Primary Physician: Soren Flynn MD Indications: Chest pain, Hypotension Impressions: LVEF 60%. Normal LV chamber size, wall thickness and function. Atypical septal motion consistent with bundle branch block. Mild left ventricular diastolic dysfunction. Normal right ventricular structure and function. Mild-moderate tricuspid regurgitation. Moderate pulmonary hypertension. Estimated RVSP is 50 mmHg. Left Ventricular Wall Motion: Rest Echo Findings All wall segments showed normal motion. Findings: Study Quality * Technically adequate exam. ECG Findings * Sinus rhythm with BBB. Left Ventricle * LVEF 60%. * Normal LV chamber size, wall thickness and function. * Atypical septal motion consistent with bundle branch block. * Mild left ventricular diastolic dysfunction. Right Ventricle * Normal right ventricular structure and function. Left Atrium * Moderately dilated left atrium. Right Atrium * Moderately dilated right atrium. Interatrial Septum * No evidence of PFO by color Doppler. Aortic Valve * Trileaflet aortic valve. * Mildly sclerotic aortic valve leaflets. * No aortic regurgitation. * No aortic stenosis. Mitral Valve * Mild mitral annular calcification * Mildly calcified mitral valve leaflets and subvalvular apparatus. * Trace mitral regurgitation. * No mitral stenosis. Tricuspid Valve * Normal tricuspid valve structure. * Mild-moderate tricuspid regurgitation. * Moderate pulmonary hypertension. * Estimated RVSP is 50 mmHg. * Estimated RA pressure is 5 mmHg. Pulmonic Valve * Normal pulmonic valve structure and function. * Trace pulmonic regurgitation. Aorta * Normally sized aortic root. Pericardium * The pericardium appears normal. IVC * Normal IVC dimensions and inspiratory collapse. Pulmonary Artery * Pulmonary artery not well visualized. History Hypertension Diabetes Hypercholesteremia 06/07/2015 a Previous Echo was performed. Measurements: BP: 92/ 60 2D Normal Values RVIDd: 3.00 cm <2.7 cm IVSd: .70 cm 0.6 - 1.0 cm LVIDd: 4.40 cm 3.7 - 5.6 cm LVPWd: 1.00 cm 0.6 - 1.1 cm LVIDs: 3.10 cm 1.5 - 3.6 cm AO: 2.50 cm < 4.0 cm LA: 4.20 cm 2.0 - 4.0cm %FS: 29.50 cm >25 % LA volume: 65 Mitral Valve Peak E:1.12 m/sec Peak A:1.26 m/sec E/A Ratio:0.9 Peak E' Lat Macho:5.26 cm/s Peak E' Med Macho:3.22 cm/s E/E' Lat Ratio:21.3 E/E' Med Ratio:34.8 Tricuspid Valve TV Regurg Peak Grad: 45.00mmHg TV Regurg Peak Macho: 3.35m/sec Updated by Joaquin Escobar DO, JEREMIAH, SARAH, GRIFFIN on 05/11/2016 9:46:18 AM electronically signed on 05/11/2016 9:46:40 AM with status of [employer] Fox: 1=Normal, 2=Hypokinesis, 3=Akinesis, 4=Dyskinesis, 5=Aneurysmal, 6=Hyperkinetic, X=Not Visualized (Blank)=Missing
--- NOTE | 2016-05-11 10:38 | Nephrology Progress Note ---
Date of Encounter: 05/11/16 Time of Encounter: 10:20 - Assessment and Plan (1) ESRD (end stage renal disease) Current Visit: Yes Status: Chronic HD today, keeping MWF schedule. If discharged will do HD in [place] on Saturday Subjective Interval history: Sitting on edge of bed. Denies chest pain, wants to go back to nursing facilty following HD today. Objective - Vital Signs Vital signs: Vital Signs Temp Pulse Resp BP Pulse Ox 05/11/16 09:32 94 L 05/11/16 07:24 97.9 F 91 18 141/81 93 L 05/11/16 04:27 97.7 F 91 16 123/68 98 05/10/16 23:46 98.2 F 92 17 132/72 98 05/10/16 22:47 16 91 L 05/10/16 21:33 94 L 05/10/16 21:13 98.8 F 94 16 109/69 84 L 05/10/16 16:32 16 97 05/10/16 15:59 98.1 F 82 18 92/60 91 L 05/10/16 12:57 102/56 05/10/16 12:00 72/46 05/10/16 11:43 69/42 05/10/16 11:38 95/64 05/10/16 11:23 72/45 05/10/16 10:48 91 92/57 05/10/16 10:41 89/80 Intake and Output 05/10/16 05/11/16 05/11/16 23:59 07:59 15:59 Intake Total 100 / 100 Balance 100 / 100 Intake: IV Fluids 100 / 100 Azactam 1,000 MG In 100 / 100 Dextrose 5% (Minibag+) 100 ML 100 ML @ 200 mls/ hr IVPB Q12H [facility] Rx#: [id number] Oral 0 / 0 Other: Weight 102 kg Blood Glucose* 140 - General Appearance General appearance: Present: well-developed, well-nourished, appears started age EENT: Present: mucous membranes moist Neck: Present: no JVD Respiratory: Present: clear Cardiology: Present: no edema, regular rate, regular rhythm Gastrointestinal: Present: normoactive bowel sounds, no tenderness Integumentary: Present: warm and dry Neurologic: Present: alert and oriented x3 Psychiatric: Present: mood/affect appropriate, cooperative - Lab 05/11/16 06:08 05/11/16 06:08 Most recent lab results Calcium 9.6 mg/dL (8.6-10.8) 05/11/16 06:08 Magnesium 1.5 mg/dL (1.6-2.6) L 05/10/16 06:12 Consult Discharge Plan - Plan Referrals: Soren Flynn MD [Primary Care Provider] -
[2016-05-11] MEDS ORDERED: 0.9 % Sodium Chloride 250 ML IV PRN (11:41)
--- NOTE | 2016-05-11 15:35 | Internal Med Progress Note ---
Date of Encounter: 05/11/16 Time of Encounter: 11:10 - Assessment and plan (1) HCAP (healthcare-associated pneumonia) Current Visit: Yes Status: Acute Assessment and plan: HCAP Chest CT on admission showed mucus plugging worse on the right, beonchitis and bronchioloitis, chronic stable lymphadenopathies and stable pulmonay nodules, Pulm HTN, and trace bilateral pleural effusions Prelim blood cultures no growth Pending sputum culture Respiratory panel PCR negative Continue Vancomycin and Aztreonam (2) Hypotension Current Visit: Yes Status: Acute Assessment and plan: Secondary to dehydration Resolved with IV fluids Qualifiers: Hypotension type: unspecified hypotension type Qualified Code(s): I95.9 - Hypotension, unspecified (3) ESRD (end stage renal disease) Current Visit: Yes Status: Chronic Assessment and plan: For HD today (4) CAD (coronary artery disease) Current Visit: Yes Status: Chronic Assessment and plan: Chronic, stable Qualifiers: Coronary Disease-Associated Artery/Lesion type: [place] artery [place] vs. transplanted heart: [place] heart Associated angina: without angina Qualified Code(s): I25.10 - Atherosclerotic heart disease of [place] coronary artery without angina pectoris (5) Pleural effusion Current Visit: Yes Status: Acute Assessment and plan: Trace, will consult pulm for thoracentensis if there is no clinical improvement (6) Anemia in chronic kidney disease (CKD) Current Visit: Yes Status: Chronic Assessment and plan: Chronic, stable on aranesp, continue same (7) COPD (chronic obstructive pulmonary disease) Current Visit: Yes Status: Chronic Assessment and plan: Not in exacerbation Duonebs prn Qualifiers: COPD type: unspecified COPD Qualified Code(s): J44.9 - Chronic obstructive pulmonary disease, unspecified (8) Diabetes mellitus Current Visit: Yes Status: Chronic Assessment and plan: Sliding scale insulin for now Qualifiers: Diabetes mellitus type: type 2 Diabetes mellitus complication status: with kidney complications Diabetes mellitus complication detail: with chronic kidney disease Diabetes mellitus mcc insulin use: unspecified mcc insulin use status Chronic kidney disease stage: on chronic dialysis Qualified Code(s): E11.22 - Type 2 diabetes mellitus with diabetic chronic kidney disease; N18.6 - End stage renal disease (9) Dyslipidemia Current Visit: Yes Status: Chronic (10) Hypertension Current Visit: Yes Status: Chronic Assessment and plan: BP has improved, resumed home meds today Qualifiers: Hypertension type: essential hypertension Qualified Code(s): I10 - Essential (primary) hypertension (11) A-fib Current Visit: Yes Status: Chronic Assessment and plan: Rate is controlled currently, not on anticoagulation Qualifiers: Atrial fibrillation type: paroxysmal Qualified Code(s): I48.0 - Paroxysmal atrial fibrillation (12) Chest pain Current Visit: Yes Status: Acute Assessment and plan: Resolved EKG non-ischemic Troponin negative X3 Continue home ASA and Plavix ECHO shwoed LVEF 60%, BBB, Mild LVDD, Mild-moderate TR, Pulm HTN with RVSP 50mmHg, No WMA Patient has remained asymptomatic Qualifiers: Chest pain type: unspecified Qualified Code(s): R07.9 - Chest pain, unspecified - Subjective Interval history: 86 Y/O F with PMH of ESRD on HD, DM with Neuropathy, CAD, Afib, CMP, CHF, COPD, Obesity Patient is admitted and being managed for HCAP with hypotension She did not tolerate dopamine yesterday and BP improved with gentle boluses She is seen at bedside this morning, sleeping but rousable in no form of distress - Constitutional Vitals: Temp Pulse Resp BP Pulse Ox 97.6 F 83 16 95/59 91 L 05/11/16 12:02 05/11/16 12:02 05/11/16 12:02 05/11/16 12:02 05/11/16 12:02 General appearance: Present: A&O X 3, morbidly obese, pleasant, no acute distress - Head Head exam: Present: atraumatic, normocephalic - Eye Eye exam: Present: PERRL, conjuntiva pink, sclera anicteric Pupils: Present: PERRL - Neck Neck exam general surgery: Present: supple, trachea midline. Absent: lymphadenopathy - Respiratory Respiratory exam: Present: rhonchi - Cardiovascular Cardiovascular exam: Present: irregular rhythm, +S1, +S2. Absent: diastolic murmur, gallop, rubs, systolic murmur - GI/Abdominal GI/Abdominal exam: Present: normal bowel sounds, soft, no peritoneal signs. Absent: distended, tenderness - Extremities Exam Extremities exam: Present: warm, radial pulses palpable and symetrical. Absent : calf tenderness, cyanotic, pedal edema - Neurological Exam Neurological exam: Present: CN II-XII intact, oriented X3, no focal deficits. Absent: pronater drift, facial droop, speech deficit - Skin Skin exam: Present: dry Internal Medicine: Result - Labs CBC & Chem 7: 05/11/16 06:08 05/11/16 06:08 Labs: Short CBC 05/11/16 Range/Units 06:08 WBC 10.2 (4.3-11.1) K/mcL Hgb 9.0 L (11.5-15.4) g/dL Hct 30.5 L (35.3-44.9) % Plt Count 196 (140-400) K/mcL Neutrophils # 6.1 (1.6-8.9) K/mcL BMP 05/11/16 06:08 Sodium 134 L Potassium 5.1 H Chloride 97 L Carbon Dioxide 21 BUN 50 H D Creatinine 5.87 H Glucose 108 H Calcium 9.6 Liver Function 05/11/16 Range/Units 06:08 Total Bilirubin 0.3 (0.2-1.2) mg/dL AST 9 (5-34) Units/L ALT 7 (0-55) Units/L Alkaline Phosphatase 162 H (38-126) Units/L Albumin 2.5 L (3.5-5.0) g/dL - ABG Interpretation ABG results: PT/INR, D-dimer PT 11.0 Seconds (9.4-12.1) 05/09/16 19:11 Consult Discharge Plan - Plan Referrals: Soren Flynn MD [Primary Care Provider] -
[2016-05-11] MEDS ORDERED: Vancomycin 750 MG in D5% in Water 250 ML IVPB ONE (18:00)
[2016-05-11] MEDS: *HR* LORazepam 0.5 MG TABLET PO PRN (22:14)
[2016-05-12] MEDS: Ipratropium/Albuterol Neb 3 ML IH SCH ×3 (00:18→10:35)
[2016-05-12] MEDS ORDERED: *HR* Morphine 2 MG/ML SYRINGE IVP ONE (04:13)
[2016-05-12] MEDS: Insulin LISPRO 300 UNITS/3 ML VIAL SQ SCH ×2 (07:36→12:28)
[2016-05-12] MEDS ORDERED: Aztreonam 1,000 MG in D5% in Water (Mini-Bag+) 100 ML IVPB SCH (08:00)
[2016-05-12 09:26] LABS: Hematocrit 27.1 % (35.3-44.9); Hemoglobin 8.8 g/dL (11.5-15.4); Mean Corpuscular HGB Conc 32.5 g/dL (31.6-35.5); Mean Corpuscular Hemoglobin 32.6 pg (28.0-33.3); Mean Corpuscular Volume 100.4 fL (83.0-100.0); Mean Platelet Volume 10.3 fL (9.4-12.4); Platelet Count 216 K/mcL (140-400); Red Cell Distribution Width 15.5 % (11.5-14.5)
[2016-05-12 09:42] LABS: Calcium 9.2 mg/dL (8.6-10.8); Potassium 4.6 mEq/L (3.5-4.5)
[2016-05-12] MEDS: traMADol 50 MG TABLET PO SCH ×2 (09:51→09:56)
[2016-05-12] MEDS: Diltiazem CD (24hr) 120 MG CAPSULE PO SCH ×2 (09:51→09:58)
[2016-05-12] MEDS: Pregabalin 50 MG CAPSULE PO SCH ×2 (09:51→09:58)
[2016-05-12] MEDS: levoFLOXacin 500 MG TABLET PO ONE ×2 (09:51→12:17)
[2016-05-12] MEDS: Aspirin 81 MG TAB.CHEW PO SCH ×2 (09:52→09:58)
[2016-05-12 09:55] LABS: Eosinophils # 0.4 K/mcL (0.0-0.6); Lymphocytes # 0.9 K/mcL (0.6-4.6); Monocytes # 1.1 K/mcL (0.0-1.3); Neutrophils # 6.5 K/mcL (1.6-8.9)
--- NOTE | 2016-05-12 10:24 | Nephrology Progress Note ---
Date of Encounter: 05/12/16 Time of Encounter: 10:11 - Assessment and Plan (1) ESRD (end stage renal disease) Current Visit: Yes Status: Chronic Dialyzed yesterday. For possible DC today. Dialyzed at the outpatient unit on Saturday as per usual schedule (2) Hypotension Current Visit: Yes Status: Acute Denies dizziness. On Coreg and diltiazem Suggest to discontinue carvedilol Has h/o A. fib in the past, currently in sinus rhythm Qualifiers: Hypotension type: unspecified hypotension type Qualified Code(s): I95.9 - Hypotension, unspecified Subjective Principal diagnosis: f/u of esrd Interval history: 86-year-old FEmale with h/O DM type II, A. fib, CAD, cardiomyopathy, COPD was admitted with chest pain and productive cough. Dx ed with healthcare associated pneumonia and abx were started. BP was borderline low improved with IV fluids 2-D echo LVEF 60% mild to moderate TR, RVSP 50. Dialyzed yesterday. Overall feels better. Denies chest pain, shortness of breath, cough is improving. Denies dizziness Objective - Vital Signs Vital signs: Vital Signs Temp Pulse Resp BP Pulse Ox 05/12/16 06:58 98.8 F 94 18 95/57 94 L 05/12/16 04:06 99.0 F 91 17 101/45 90 L 05/12/16 03:20 19 93 L 05/12/16 00:18 17 94 L 05/11/16 23:54 97.9 F 86 17 141/81 93 L 05/11/16 20:21 98.4 F 105 17 88/50 94 L 05/11/16 18:31 98.0 F 81 16 88/46 94 L 05/11/16 17:32 98 F 22 99/54 05/11/16 17:30 127/52 05/11/16 17:00 109/48 05/11/16 16:30 91/47 05/11/16 16:00 104/47 05/11/16 15:30 93/48 05/11/16 15:00 93/49 05/11/16 14:30 97 F L 20 93/47 05/11/16 12:02 97.6 F 83 16 95/59 91 L 05/11/16 10:31 18 94 L Intake and Output 05/11/16 05/12/1605/12/17 23:59 07:59 15:59 Intake Total 0 / 0 Output Total 3600 / 3600 Balance -3600 / -3600 0 / 0 Intake: Oral 0 / 0 Output: Urine 0 / 0 Total Dialysis Output 3600 / 3600 Other: # Urine Diapers 1 Weight 101 kg Blood Glucose* 185 134 Hemodialysis Net Fluid 3000 Removed (mL) Patient Weight 05/12/16 23:59 Weight 101 kg - General Appearance Exam: CVS; s1s2 present, regular, no murmurs RESP; good air entry, scatteres exp wheezing ABD; soft, NT, BS present, no organomegaly, no bruits EXT; no edema FOLLOW UP SPECIALIST; alert oriented -3 - Lab 05/12/16 08:59 05/12/16 08:59 Most recent lab results Calcium 9.2 mg/dL (8.6-10.8) 05/12/16 08:59 Magnesium 1.5 mg/dL (1.6-2.6) L 05/10/16 06:12 Consult Discharge Plan - Plan Referrals: Soren Flynn MD [Primary Care Provider] -
[2016-05-12 12:26] VITALS: BP 94/52
--- NOTE | 2016-05-12 13:21 | Physician Discharge Referral ---
ExtendedCare Referral Info Transfer To: SNF Provider in Charge after Transfer: PCP Institutional Level of Care: Skilled - Diagnosis (1) HCAP (healthcare-associated pneumonia) Priority: Primary Status: Acute (2) Hypotension Priority: Primary Status: Resolved (3) ESRD (end stage renal disease) Priority: Secondary Status: Chronic (4) CAD (coronary artery disease) Priority: Secondary Status: Chronic (5) Pleural effusion Priority: Secondary Status: Acute (6) Anemia in chronic kidney disease (CKD) Priority: Secondary Status: Chronic (7) COPD (chronic obstructive pulmonary disease) Priority: Secondary Status: Chronic (8) Diabetes mellitus Priority: Secondary Status: Chronic (9) Dyslipidemia Priority: Secondary Status: Chronic (10) Hypertension Priority: Secondary Status: Chronic (11) A-fib Priority: Secondary Status: Chronic (12) Chest pain Priority: Primary Status: Resolved Prognosis: Fair Aware of Diagnosis: Patient Aware of Prognosis: Patient - Transfer Medications Home Medications: Acetaminophen [Tylenol] 650 mg PO Q4H PRN 04/14/15 [History] Allopurinol [Zyloprim 100 MG] 100 mg PO DAILY 04/14/15 [History] Aspirin 81 mg PO DAILY 04/14/15 [History] Clopidogrel [Plavix] 75 mg PO DAILY 04/14/15 [History] Docusate Sodium [Colace] 100 mg PO DAILY 04/14/15 [History] Insulin LISPRO [HumaLOG] 2 - 12 units SQ TIDAC 04/14/15 [History] Ipratropium/Albuterol Neb [Duoneb] 3 ml IH Q6HR 04/14/15 [History] Omeprazole [PriLOSEC] 20 mg PO DAILY 04/14/15 [History] Sevelamer [Renvela] 800 mg PO TIDWM 04/14/15 [History] Ascorbate Calcium [Vitamin C] 500 mg PO DAILY 06/05/15 [History] Diclofenac Sodium [Voltaren] 2 gm TP QID PRN 06/05/15 [History] Duloxetine [Cymbalta] 60 mg PO DAILY 06/05/15 [History] Carvedilol [Coreg] 6.25 mg PO BID 08/12/15 [History] Diltiazem HCl [Cardizem] 120 mg PO DAILY 10/16/15 [History] Insulin DETEMIR [Levemir] 10 unit SQ HS 10/16/15 [History] Loperamide [Imodium] 2 mg PO Q4HR PRN 10/16/15 [History] Ethyl Chloride 1 appl TP AD PRN 05/09/16 [History] GuaiFENesin Liq [Robitussin Liq] 100 mg PO Q4H PRN 05/09/16 [History] Hydrocortisone [Proctozone-Hc] 1 appl RC QID PRN 05/09/16 [History] LORazepam [Ativan] 0.5 mg PO HS 05/09/16 [History] Pregabalin [Lyrica] 50 mg PO BID 05/09/16 [History] Promethazine [Phenergan] 25 mg PO Q4H PRN 05/09/16 [History] Citlalli-D Compound Cream 1 appl TP QID 05/09/16 [History] Tramadol HCl [Ultram] 25 mg PO BID 05/09/16 [History] Allergies/Adverse Reactions: Allergies Iodinated Contrast Media - Oral and Allergy (Verified 04/03/16 19:37) See Comments UNABLE TO CONFIRM REACTIONS- ALL ALLERGIES OBTAINED THROUGH [facility] LAST APPT. Penicillins Allergy (Verified 04/03/16 19:37) See Comments UNABLE TO CONFIRM REACTIONS- ALL ALLERGIES OBTAINED THROUGH [facility] LAST APPT. povidone-iodine [From Betadine] Allergy (Verified 04/03/16 19:37) See Comments UNABLE TO CONFIRM REACTIONS- ALL ALLERGIES OBTAINED THROUGH [facility] LAST APPT. soap [From Betadine] Allergy (Verified 04/03/16 19:37) See Comments UNABLE TO CONFIRM REACTIONS- ALL ALLERGIES OBTAINED THROUGH [facility] LAST APPT. Sulfa (Sulfonamide Antibiotics) Allergy (Verified 04/03/16 19:37) See Comments UNABLE TO CONFIRM REACTIONS- ALL ALLERGIES OBTAINED THROUGH [facility] LAST APPT. Dopamine Adverse Reaction (Verified 05/10/16 11:17) Drowsy Patient has nausea and vomitting, drowsiness, and confusion. - Respiratory Orders Oxygen / L per min (PRN to achieve O2Sat of 92%) Smoking Cessation: Smoking cessation has been advised. For more information, call the [place] Tobacco Quit Line at 1-044-GEAW-NOW. - Advance Directives Code Status: Full Code - Mobility Orders Ambulate - Rehabiliation Orders Rehab Potential: Fair CERTIFICATION: I certify that the transfer of the above named patient to an Extended Care Facility is necessary for the continuing treatment of the diagnosis listed. The above information is true and accurate reflection of patient's current condition. Confidential - Redisclosure prohibited without a patient's written consent.
--- NOTE | 2016-05-12 13:25 | Discharge Summary ---
Date of Encounter: 05/12/16 Time of Encounter: 10:45 - Discharge Diagnosis (1) HCAP (healthcare-associated pneumonia) Priority: Primary Status: Acute Comments: HCAP Chest CT on admission showed mucus plugging worse on the right, beonchitis and bronchioloitis, chronic stable lymphadenopathies and stable pulmonay nodules, Pulm HTN, and trace bilateral pleural effusions Prelim blood cultures no growth Pending sputum culture Respiratory panel PCR negative Received 2 days of IV Aztreonam and Vancomycin in-patient She is transitioned to po Levaquin 750mg q48 hours for 7 days of antibiotic therapy She is stable clinically for discharge to SNF (2) Hypotension Priority: Primary Status: Resolved Comments: Secondary to dehydration Resolved with IV fluids Coreg has been decreased to 3.125mg bid She was continued on diltiazem She is clinically stable for discharge Qualifiers: Hypotension type: unspecified hypotension type Qualified Code(s): I95.9 - Hypotension, unspecified (3) ESRD (end stage renal disease) Priority: Secondary Status: Chronic Comments: Resume hemodialysis per schedule (4) CAD (coronary artery disease) Priority: Secondary Status: Chronic Qualifiers: Coronary Disease-Associated Artery/Lesion type: [place] artery [place] vs. transplanted heart: [place] heart Associated angina: without angina Qualified Code(s): I25.10 - Atherosclerotic heart disease of [place] coronary artery without angina pectoris (5) Pleural effusion Priority: Secondary Status: Acute (6) Anemia in chronic kidney disease (CKD) Priority: Secondary Status: Chronic (7) COPD (chronic obstructive pulmonary disease) Priority: Secondary Status: Chronic Qualifiers: COPD type: unspecified COPD Qualified Code(s): J44.9 - Chronic obstructive pulmonary disease, unspecified (8) Diabetes mellitus Priority: Secondary Status: Chronic Qualifiers: Diabetes mellitus type: type 2 Diabetes mellitus complication status: with kidney complications Diabetes mellitus complication detail: with chronic kidney disease Diabetes mellitus senior care 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 Chronic kidney disease stage: on chronic dialysis Qualified Code(s): E11.22 - Type 2 diabetes mellitus with diabetic chronic kidney disease; N18.6 - End stage renal disease (9) Dyslipidemia Priority: Secondary Status: Chronic (10) Hypertension Priority: Secondary Status: Chronic Qualifiers: Hypertension type: essential hypertension Qualified Code(s): I10 - Essential (primary) hypertension (11) A-fib Priority: Secondary Status: Chronic Comments: Rate is controlled,not on anticoagulation Qualifiers: Atrial fibrillation type: paroxysmal Qualified Code(s): I48.0 - Paroxysmal atrial fibrillation (12) Chest pain Priority: Secondary Status: Resolved Comments: Resolved EKG non-ischemic Troponin negative X3 Continue home ASA and Plavix ECHO shwoed LVEF 60%, BBB, Mild LVDD, Mild-moderate TR, Pulm HTN with RVSP 50mmHg, No WMA Patient has remained asymptomatic Qualifiers: Chest pain type: unspecified Qualified Code(s): R07.9 - Chest pain, unspecified - Discharge Medications Prescriptions: Levofloxacin [Levaquin] 500 mg PO Q48H #4 tablet Home Medications: Acetaminophen [Tylenol] 650 mg PO Q4H PRN 04/14/15 [History] Allopurinol [Zyloprim 100 MG] 100 mg PO DAILY 04/14/15 [History] Aspirin 81 mg PO DAILY 04/14/15 [History] Clopidogrel [Plavix] 75 mg PO DAILY 04/14/15 [History] Docusate Sodium [Colace] 100 mg PO DAILY 04/14/15 [History] Insulin LISPRO [HumaLOG] 2 - 12 units SQ TIDAC 04/14/15 [History] Ipratropium/Albuterol Neb [Duoneb] 3 ml IH Q6HR 04/14/15 [History] Omeprazole [PriLOSEC] 20 mg PO DAILY 04/14/15 [History] Sevelamer [Renvela] 800 mg PO TIDWM 04/14/15 [History] Ascorbate Calcium [Vitamin C] 500 mg PO DAILY 06/05/15 [History] Diclofenac Sodium [Voltaren] 2 gm TP QID PRN 06/05/15 [History] Duloxetine [Cymbalta] 60 mg PO DAILY 06/05/15 [History] Diltiazem HCl [Cardizem] 120 mg PO DAILY 10/16/15 [History] Insulin DETEMIR [Levemir] 10 unit SQ HS 10/16/15 [History] Loperamide [Imodium] 2 mg PO Q4HR PRN 10/16/15 [History] Ethyl Chloride 1 appl TP AD PRN 05/09/16 [History] GuaiFENesin Liq [Robitussin Liq] 100 mg PO Q4H PRN 05/09/16 [History] Hydrocortisone [Proctozone-Hc] 1 appl RC QID PRN 05/09/16 [History] LORazepam [Ativan] 0.5 mg PO HS 05/09/16 [History] Pregabalin [Lyrica] 50 mg PO BID 05/09/16 [History] Promethazine [Phenergan] 25 mg PO Q4H PRN 05/09/16 [History] Citlalli-D Compound Cream 1 appl TP QID 05/09/16 [History] Tramadol HCl [Ultram] 25 mg PO BID 05/09/16 [History] Carvedilol [Coreg] 3.125 mg PO BID #0 05/12/16 [Rx] Levofloxacin [Levaquin] 500 mg PO Q48H #4 tablet 05/12/16 [Rx] Allergies/Adverse Reactions: Allergies Iodinated Contrast Media - Oral and Allergy (Verified 04/03/16 19:37) See Comments UNABLE TO CONFIRM REACTIONS- ALL ALLERGIES OBTAINED THROUGH [facility] LAST APPT. Penicillins Allergy (Verified 04/03/16 19:37) See Comments UNABLE TO CONFIRM REACTIONS- ALL ALLERGIES OBTAINED THROUGH [facility] LAST APPT. povidone-iodine [From Betadine] Allergy (Verified 04/03/16 19:37) See Comments UNABLE TO CONFIRM REACTIONS- ALL ALLERGIES OBTAINED THROUGH [facility] LAST APPT. soap [From Betadine] Allergy (Verified 04/03/16 19:37) See Comments UNABLE TO CONFIRM REACTIONS- ALL ALLERGIES OBTAINED THROUGH [facility] LAST APPT. Sulfa (Sulfonamide Antibiotics) Allergy (Verified 04/03/16 19:37) See Comments UNABLE TO CONFIRM REACTIONS- ALL ALLERGIES OBTAINED THROUGH [facility] LAST APPT. Dopamine Adverse Reaction (Verified 05/10/16 11:17) Drowsy Patient has nausea and vomitting, drowsiness, and confusion. Procedures/tests Complete & Pending: Procedures Performed prior 72 hours Category Date Time Status CT chest w/o contrast [CT chest wo con] [CT] Stat Cat Scan 05/10/16 08:06 Completed EV echocardiogram Stat Y 05/10/16 08:08 Completed Date of admission: 05/10/16 00:01 Primary care physician: Soren Flynn, Consults: 05/11/16 11:45 Consult to Dialysis [CONS] ONCE Discharging clinician: Ousmane Rogers Anticipated date of discharge: 05/12/16 - Patient Status Disposition: Transfer SNF Condition: Fair Functional capacity at discharge: uses cane/walker Overall status at discharge: patient is back to baseline - Discharge Instructions Follow Up With: Soren Flynn MD [Primary Care Provider] - - Diet and Activity Activity: resume usual activities as tolerated Diet: advance to your usual diet Interval History: See below Hospital course: 86 Y/O F with PMH of ESRD on HD, DM with Neuropathy, CAD, Afib, CMP, CHF, COPD, Obesity Patient was admitted and being managed for HCAP with hypotension She is seen at bedside this morning, clinically improved, at her baseline, with no new complains She is stable to return to SNF Details of admission in each diagnoses comment - Time Spent with Patient Total time spent providing and/or coordinating discharge services: Less than 30 minutes - Constitutional Vitals: Temp Pulse Resp BP Pulse Ox 98.4 F 94 18 94/52 91 L 05/12/16 11:20 05/12/16 11:20 05/12/16 11:20 05/12/16 12:25 05/12/16 11:20 General appearance: Present: A&O X 3, morbidly obese, pleasant, no acute distress - Head Head exam: Present: atraumatic, normocephalic - Eye Eye exam: Present: PERRL, conjuntiva pink, sclera anicteric Pupils: Present: PERRL - Neck Neck exam general surgery: Present: supple, trachea midline. Absent: lymphadenopathy - Respiratory Respiratory exam: Present: CTAB. Absent: accessory muscle use, rales, rhonchi, wheezes - Cardiovascular Cardiovascular exam: Present: RRR, +S1, +S2. Absent: diastolic murmur, gallop, rubs, systolic murmur - GI/Abdominal GI/Abdominal exam: Present: normal bowel sounds, soft, no peritoneal signs. Absent: distended, tenderness - Extremities Exam Extremities exam: Present: warm, radial pulses palpable and symetrical. Absent : calf tenderness, cyanotic, pedal edema - Neurological Exam Neurological exam: Present: CN II-XII intact, oriented X3, no focal deficits. Absent: pronater drift, facial droop, speech deficit - Skin Skin exam: Present: dry, intact
[2016-05-12] MEDS ORDERED: Aminoglycoside Consult 1 EACH MC ONE (14:49)
[2016-05-12 21:29] LABS: CK-MB (CK isoenzymes) 0 % (0-4); CK-MM (CK-isoenzymes) 100 % (96-100)
[2016-05-14 08:08] LABS: CK Total (Ck Isoenzymes) 23 U/L (20-180); CK-BB (CK isoenzymes) 0 % (0-0)
[2016-05-14 08:09] LABS: CK Total (Ck Isoenzymes) 19 U/L (20-180)
[2016-05-14] MEDS ORDERED: levoFLOXacin 250 MG TABLET PO SCH (09:00)
== END 2016-05-12 14:50 | DRG 190 ==
LOC: EMEROO 17:54 → 2ANU 17:54 → SUATTDRO 05-10 00:01
PROVIDERS: ADMIT Internal Medicine Endocrinology, Diabetes & Metabolism; ATTEND Internal Medicine

== ENCOUNTER 2016-06-04 14:55 | Observation (INO) ==
--- NOTE | 2016-06-04 15:04 | Emergency Department Note ---
Disposition Clinical Impression: ESRD (end stage renal disease) on dialysis Hypotension Qualifiers: Hypotension type: unspecified hypotension type Qualified Code(s): I95.9 - Hypotension, unspecified Altered mental status Qualifiers: Altered mental status type: unspecified Qualified Code(s): R41.82 - Altered mental status, unspecified Disposition: Admitted As Inpatient Condition: Fair Time of Disposition: 19:36 Altered Mental Status HPI - General Chief Complaint: ED Altered Mental Status Stated Complaint: "confused, lethagic" Source: patient, EMS Mode of arrival: EMS Limitations: no limitations Nursing Notes Reviewed: Yes Vital Signs Reviewed: Yes - History of Present Illness HPI Narrative: 86-year-old female history of hypertension, diabetes, end-stage renal disease hemodialysis Saturday with Dr. Catalan presents to the ED via EMS after hemodialysis today feeling more confused and lethargic. The EMS crew is very familiar with the patient as they normally transport her from nursing facility in [place] to HD. Reports she is normally laughing making jokes and very talkative, whereas today she is quiet and somnolent. Today after hemodialysis she was hypotensive 88/60 with a repeat 100/43 after treatment. She had her normal dialysis today. She reports having a nonproductive cough recently. Denies any fever, chest pain, shortness of breath , abdominal pain. Has not been feeling right she reports. Last time she felt like this she had pneumonia. Does not make urine. MD complaint: confusion - Related Data Home Medications Medication Instructions Recorded Confirmed Acetaminophen [Tylenol] 650 mg PO Q4H PRN 04/14/15 05/09/16 Allopurinol [Zyloprim 100 MG] 100 mg PO DAILY 04/14/15 05/09/16 Aspirin 81 mg PO DAILY 04/14/15 05/09/16 Clopidogrel [Plavix] 75 mg PO DAILY 04/14/15 05/09/16 Docusate Sodium [Colace] 100 mg PO DAILY 04/14/15 05/09/16 Insulin LISPRO [HumaLOG] 2 - 12 units SQ TIDAC 04/14/15 05/09/16 Ipratropium/Albuterol Neb [Duoneb] 3 ml IH Q6HR 04/14/15 05/09/16 Omeprazole [PriLOSEC] 20 mg PO DAILY 04/14/15 05/09/16 Sevelamer [Renvela] 800 mg PO TIDWM 04/14/15 05/09/16 Ascorbate Calcium [Vitamin C] 500 mg PO DAILY 06/05/15 05/09/16 Diclofenac Sodium [Voltaren] 2 gm TP QID PRN 06/05/15 05/09/16 Duloxetine [Cymbalta] 60 mg PO DAILY 06/05/15 05/09/16 Diltiazem HCl [Cardizem] 120 mg PO DAILY 10/16/15 05/09/16 Insulin DETEMIR [Levemir] 10 unit SQ HS 10/16/15 05/09/16 Loperamide [Imodium] 2 mg PO Q4HR PRN 10/16/15 05/09/16 Ethyl Chloride 1 appl TP AD PRN 05/09/16 05/09/16 GuaiFENesin Liq [Robitussin Liq] 100 mg PO Q4H PRN 05/09/16 05/09/16 Hydrocortisone [Proctozone-Hc] 1 appl RC QID PRN 05/09/16 05/09/16 LORazepam [Ativan] 0.5 mg PO HS 05/09/16 05/09/16 Pregabalin [Lyrica] 50 mg PO BID 05/09/16 05/09/16 Promethazine [Phenergan] 25 mg PO Q4H PRN 05/09/16 05/09/16 Citlalli-D Compound Cream 1 appl TP QID 05/09/16 05/09/16 Tramadol HCl [Ultram] 25 mg PO BID 05/09/16 05/09/16 Previous Rx's Medication Instructions Recorded Carvedilol [Coreg] 3.125 mg PO BID #0 05/12/16 Levofloxacin [Levaquin] 500 mg PO Q48H #4 tablet 05/12/16 Fosfomycin Tromethamine [Monurol] 3 gm PO ONCE #1 packet 05/16/16 Allergies Allergy/AdvReac Type Severity Reaction Status Date / Time Iodinated Contrast Media - Allergy See Verified 04/03/16 19:37 Oral and Comments Penicillins Allergy See Verified 04/03/16 19:37 Comments povidone-iodine Allergy See Verified 04/03/16 19:37 [From Betadine] Comments soap [From Betadine] Allergy See Verified 04/03/16 19:37 Comments Sulfa (Sulfonamide Allergy See Verified 04/03/16 19:37 Antibiotics) Comments Dopamine AdvReac Drowsy Verified 05/10/16 11:17 All systems ED: reviewed and negative except as stated. Constitutional: Reports: weakness. Denies: fever, chills Cardiovascular: Denies: chest pain, palpitations Respiratory: Denies: cough, dyspnea Gastrointestinal: Denies: abdominal pain, nausea, vomiting, diarrhea Integumentary: Denies: rash, abrasion Neurological: Reports: weakness. Denies: headache Past Medical History - Past Medical History Attestation: Yes The following information was validated with the patient. 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: Reports: non-contributory - Social History Smoking Status: Never smoker Smokeless Tobacco Status: No Alcohol use: Reports: rarely Drug use: Reports: none Physical Exam - General Limitations: no limitations General appearance: alert, obtunded, obese, other (slow to answer) - Head Head exam: atraumatic, normocephalic, normal inspection - Eye Eye exam: Present: normal appearance, PERRL, EOMI - ENT ENT exam: normal exam, normal oropharynx, mucous membranes moist - Neck Neck exam: Present: normal inspection, full ROM, trachea midline - Chest Chest inspection: Present: normal inspection, symmetric chest wall rise - Respiratory Respiratory exam: Present: normal lung sounds bilaterally. Absent: respiratory distress, wheezes - Cardiovascular Cardiovascular exam: Present: regular rate, normal rhythm, normal heart sounds. Absent: systolic murmur, diastolic murmur - Abdominal Exam Abdominal exam: Present: soft, Non-Tender, normal bowel sounds. Absent: tenderness, distention, guarding, rebound, rigidity - Extremities Exam Extremities exam: Present: normal inspection, full ROM, other (AV Fistula in left forearm). Absent: tenderness, pedal edema - Neurological Exam Neurological exam: Present: alert, oriented X3 - Expanded Neurological Exam Patient oriented to: Present: person, place ([facility]), time (May, Saturday) Speech: Present: fluid speech Cranial nerves: EOM function (II, III, IV, ): Normal, facial sensation (V): Normal, facial palsy (VII): Normal, gag reflex (IX): Normal, spinal accessory function (XI): Normal, tongue deviation (XII): Normal Motor strength - LUE: 5/5 Motor strength - RUE: 5/5 Motor strength - LLE: 5/5 Motor strength - RLE: 5/5 Upper motor neuron exam: zca neglect: Absent bilaterally Sensory exam upper extremity: light touch: Normal Sensory exam lower extremity: light touch: Normal - Psychiatric Psychiatric exam: Present: normal affect, normal mood - Skin Skin exam: Present: warm, dry, intact, normal color. Absent: rash, cyanosis Course Course Narrative: 86-year-old female history of end-stage renal disease on hemodialysis Saturday presents with confusion. She had her normal hemodialysis today was reportedly hypotensive afterwards. EMS crew that is familiar with her transport states she is more lethargic than normal. She denies any pain at this time. Patient is afebrile. Her blood pressure is hypotensive 89/50. Will give her a fluid bolus of 500 mL. Neurologic exam is normal without focal neuro deficits. Will check basic labs, EKG, and CXR. Recently treated for pneumonia last month when she displayed similar symptoms. Fistula in the left forearm with bruit. Lungs are clear to auscultation. Heart is regular rate and rhythm. After multiple unsuccessful peripheral IVs, PICC team consulted. - Reevaluation(s) Reevaluation #1: Powerglide in the right arm, unable to draw labs. Patient remains alert awake and oriented to person place and time. Time: 16:52 Reevaluation #2: CXR reveals a resolving pneumonia. Review of labs, potassium is on the lower side 3.3 creatinine is 3. After 500 mL bolus patient's blood pressure has improved 110/80. She continues to be somnolent but does not have any focal neural deficits. She does not have a facial droop or slurring of her speech. She continues to move all 4 extremities without difficulty. Will check a head CT and likely admission if nothing is found. Impression is acute altered mental status change. Time: 18:16 Reevaluation #3: CT of the head reveals a stable calcified meningioma. Patient remains hypotensive 90/50 despite 1 L fluid bolus. Will admit patient to hospitalist for confusion, AMS, hypotension, and ESRD Time: 19:37 - Consultations Consultation #1: Spoke with on-call hospitalist stephanie San to admit for AMS, confusion, and hypotension. No further orders at this time Time: 19:36 Vital Signs Temperature 97.6 F 06/04/16 14:56 Pulse Rate 82 06/04/16 14:56 Respiratory Rate 12 06/04/16 14:56 Blood Pressure 85/41 06/04/16 14:56 O2 Sat by Pulse Oximetry 94 L 06/04/16 14:56 Temperature 97.6 F 06/04/16 14:56 Pulse Rate 83 06/04/16 20:00 Respiratory Rate 16 06/04/16 20:00 Blood Pressure 98/44 06/04/16 20:00 O2 Sat by Pulse Oximetry 95 06/04/16 20:00 Oxygen Delivery Oxygen Delivery Nasal Cannula Altered Mental Status - Medical Records Medical records reviewed: Yes I reviewed the patient's medical records. - Lab Data Lab results reviewed: Yes I reviewed the patient's lab results. Result diagrams: 06/04/16 17:30 06/04/16 17:30 Lab Results 06/04/16 06/04/16 06/04/16 Range/Units 17:30 17:30 17:30 WBC 10.5 (4.3-11.1) K/mcL RBC 3.26 L (3.82-4.97) M/mcL Hgb 10.0 L (11.5-15.4) g/dL Hct 32.5 L (35.3-44.9) % MCV 99.7 (83.0-100.0) fL MCH 30.7 (28.0-33.3) pg MCHC 30.8 L (31.6-35.5) g/dL RDW 14.8 H (11.5-14.5) % Plt Count 176 (140-400) K/mcL MPV 10.0 (9.4-12.4) fL Immature Gran % 0.4 (0-4) % Seg Neutrophils % 70.9 % Lymphocytes % 15.1 % Monocytes % 8.9 % Eosinophils % 4.3 % Basophils % 0.4 % Neutrophils # 7.5 (1.6-8.9) K/mcL Lymphocytes # 1.6 (0.6-4.6) K/mcL Monocytes # 0.9 (0.0-1.3) K/mcL Eosinophils # 0.5 (0.0-0.6) K/mcL Basophils # 0.0 (0.0-0.2) K/mcL PT 12.3 H (9.4-12.1) Seconds INR 1.1 APTT 25.9 L (26.0-36.0) Seconds Sodium 141 (136-145) mEq/L Potassium 3.3 L (3.5-4.5) mEq/L Chloride 102 (98-109) mEq/L Carbon Dioxide 29 (19-29) mEq/L BUN 11 (7-20) mg/dL Creatinine 3.19 H (0.57-1.11) mg/dL Est GFR ( Amer) 17 L (> 60) Est GFR (Non-Af Amer) 14 L (> 60) BUN/Creatinine Ratio 3 L (6-26) Glucose 123 H (70-99) mg/dL Calculated Osmolality 293 (280-300) Calcium 8.8 (8.6-10.8) mg/dL - Radiology Data Radiology results reviewed: Yes I reviewed the patient's radiology results. Chest X-Ray 06/04/16 15:05 IMPRESSION: Clearing bilateral lower lobe airspace disease. D/ / Ld Davison MD / Ld Davison MD Interpreting Provider: Ld Davison MD Head CT 06/04/16 18:11 IMPRESSION: No acute intracranial abnormality. Stable calcified meningioma D/ / Gm Brown MD / Gm Brown MD Interpreting Provider: Gm Brown MD - EKG Data EKG attestation: Yes I reviewed and interpreted this EKG. EKG results narrative: EKG performed 1522, there is baseline artifact but appears normal sinus rhythm 84 bpm, there is intraventricular conduction delay with marked left axis deviation. there are no ST elevations or depressions, Intervals appear with normal limits. No old EKG for comparison. No acute ischemic changes. Attestation Statement - Attestation Attestation: Patient was seen with resident physician. I reviewed the history, physical, assessment and plan, and agree with the findings. I also personally evaluated this patient and had [id number] time with this patient. Interstitial female presents to the emergency department with chief complaint of weakness and hypotension. She was just at dialysis and became hypotensive after her dialysis treatment which prompted her being sent to the emergency department. Patient says last time establishing up having pneumonia but she denies similar complaints like cough or fever. She does not make urine at this time. On examination ENT is unremarkable. Patient does appear fatigued. Heart and lungs are unremarkable. Abdomen is obese and nontender. Extremities some mild swelling bilateral lower extremities which fairly is not new. We will workup for pneumonia and check basic lab testing. We will also give a little bit of fluids, seems like they may have over dialyzed her. If the patient is responding well she no back to her [facility] she continues to struggle she will require admission. After some fluid resuscitation, the patient was still somewhat somnolent. A head CT scan was ordered and did not reveal any acute abnormalities. Other laboratory testing was not that significantly abnormal. Because of the patient's mental status change we will make to the hospital for further evaluation and treatment. Hemodynamically the patient was improved with systolic blood pressure right around 100. I agree with the resident physician assessment and plan.
[2016-06-04] MEDS ORDERED: 0.9 % Sodium Chloride 500 ML IVC ONE ×2 (15:10→18:14)
[2016-06-04 17:43] LABS: Basophils % 0.4 %; Eosinophils # 0.5 K/mcL (0.0-0.6); Eosinophils % 4.3 %; Hematocrit 32.5 % (35.3-44.9); Immature Granulocytes % 0.4 % (0-4); Lymphocytes # 1.6 K/mcL (0.6-4.6); Lymphocytes % 15.1 %; Mean Corpuscular HGB Conc 30.8 g/dL (31.6-35.5); Mean Corpuscular Hemoglobin 30.7 pg (28.0-33.3); Mean Corpuscular Volume 99.7 fL (83.0-100.0); Monocytes # 0.9 K/mcL (0.0-1.3); Monocytes % 8.9 %; Neutrophils # 7.5 K/mcL (1.6-8.9); Platelet Count 176 K/mcL (140-400); Red Blood Count 3.26 M/mcL (3.82-4.97); Red Cell Distribution Width 14.8 % (11.5-14.5); Segmented Neutrophils % 70.9 %
[2016-06-04 17:48] LABS: INR 1.1; Prothrombin Time 12.3 Seconds (9.4-12.1)
[2016-06-04 17:51] LABS: Activated Partial Thrombo Time 25.9 Seconds (26.0-36.0)
[2016-06-04 17:56] LABS: Calcium 8.8 mg/dL (8.6-10.8); Potassium 3.3 mEq/L (3.5-4.5)
[2016-06-04] MEDS ORDERED: Acetaminophen 325 MG TABLET PO PRN (21:29)
[2016-06-04] MEDS ORDERED: Naloxone 0.4 MG/ML INJ IVP PRN (21:29)
[2016-06-04] MEDS ORDERED: Dextrose Gel 15 GM PO PRN ×2 (21:42)
[2016-06-04] MEDS ORDERED: *HR* Dextrose 50 % in Water (Syg) 50 ML SYRINGE IVP PRN (21:42)
[2016-06-04] MEDS ORDERED: D5% in Water 1,000 ML IV PRN (21:42)
--- NOTE | 2016-06-04 21:49 | Internal Med History&Physical ---
Date of Encounter: 06/04/16 Time of Encounter: 21:30 Assessment and Plan (1) Acute metabolic encephalopathy Current visit: Yes Status: Acute Observation. Encephalopathy likely due to hypotension. Patient appears to be improving. We will continue to monitor her overnight. CT of the head does not show any acute stroke or bleed. No other metabolic abnormalities identified. (2) Hypotension Current visit: Yes Status: Acute Dialysis associated hypotension. Improving blood pressure. Will gently hydrate. Monitor blood pressure. We will recheck orthostatics in the morning. Hold antihypertensives for now Qualifiers: Hypotension type: hemodialysis-associated hypotension Qualified Code(s): I95.3 - Hypotension of hemodialysis (3) ESRD (end stage renal disease) on dialysis Current visit: Yes Status: Chronic Patient dialyzed today. Next session Would be on Saturday. We will consult nephrology for dialysis management. (4) Type 2 diabetes mellitus Current visit: No Status: Chronic Monitor blood sugars. Diabetic diet. Sliding scale insulin. 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 Crowder is a 86 year old female with history of end-stage renal disease on hemodialysis, diabetes mellitus type 2, hypertension, A. fib, cardiomyopathy, coronary artery disease presented to the ER with complaints of hypotension and increased confusion that suddenly developed while the patient was on her usual dialysis regimen today. The patient currently does not recollect what happened but she will get her blood pressure had decreased. She feels tired and weak. Denies any pain anywhere. No nausea or vomiting. She has chronic cough without any sputum production. No fever or chills or night sweats. No diarrhea or constipation reported. Past Med Surg Social Fam HX - Past Medical History Medical history: arthritis, asthma, atrial fibrillation, cardiomyopathy, CHF, COPD, coronary artery disease, diabetes, dialysis, GERD, hyperlipidemia, hypertension, osteoporosis, renal disease, venous stasis, valvular heart disease , other Psychiatric history: anxiety, depression, other - Past Surgical History Surgical History: angioplasty/stent, hysterectomy, knee replacement, orthopedic , other, CHRISTY/BSO, other, vascular surgery - Social History Smoking Status: Never smoker Smokeless Tobacco Status: No Alcohol use: rarely Drug use: none - Family History Son Living Status: Still Living Hx Family Cardiac Disorders: Yes (heart problems) Father Living Status: Hx Family Cardiac Disorders: Yes Hx Family Respiratory Disorders: No Hx Family Cancer: Yes Hx Family GI Disorders: No Hx Family Endocrine Disorder: Yes (DM) Hx Family Neuromuscular Disorders: No Hx Family Neurologic Disorders: Yes Hx Family HEENT Disorders: No Hx Family Autoimmune Disorders: No Mother Living Status: Hx Family Cardiac Disorders: No Hx Family Respiratory Disorders: No Hx Family Cancer: No Hx Family GI Disorders: No Hx Family Endocrine Disorder: No Hx Family Neuromuscular Disorders: No Hx Family Neurologic Disorders: No Hx Family HEENT Disorders: No Hx Family Autoimmune Disorders: No Internal Medicine - H&P: Meds Acetaminophen [Tylenol] 650 mg PO Q4H PRN 04/14/15 [History] Allopurinol [Zyloprim 100 MG] 100 mg PO DAILY 04/14/15 [History] Aspirin 81 mg PO DAILY 04/14/15 [History] Clopidogrel [Plavix] 75 mg PO DAILY 04/14/15 [History] Docusate Sodium [Colace] 100 mg PO DAILY 04/14/15 [History] Insulin LISPRO [HumaLOG] 2 - 12 units SQ TIDAC 04/14/15 [History] Ipratropium/Albuterol Neb [Duoneb] 3 ml IH Q6HR 04/14/15 [History] Omeprazole [PriLOSEC] 20 mg PO DAILY 04/14/15 [History] Sevelamer [Renvela] 800 mg PO TIDWM 04/14/15 [History] Ascorbate Calcium [Vitamin C] 500 mg PO DAILY 06/05/15 [History] Diclofenac Sodium [Voltaren] 2 gm TP QID PRN 06/05/15 [History] Duloxetine [Cymbalta] 60 mg PO DAILY 06/05/15 [History] Diltiazem HCl [Cardizem] 120 mg PO DAILY 10/16/15 [History] Insulin DETEMIR [Levemir] 10 unit SQ HS 10/16/15 [History] Loperamide [Imodium] 2 mg PO Q4HR PRN 10/16/15 [History] Ethyl Chloride 1 appl TP AD PRN 05/09/16 [History] GuaiFENesin Liq [Robitussin Liq] 100 mg PO Q4H PRN 05/09/16 [History] Hydrocortisone [Proctozone-Hc] 1 appl RC QID PRN 05/09/16 [History] LORazepam [Ativan] 0.5 mg PO HS 05/09/16 [History] Pregabalin [Lyrica] 50 mg PO BID 05/09/16 [History] Promethazine [Phenergan] 25 mg PO Q4H PRN 05/09/16 [History] Citlalli-D Compound Cream 1 appl TP QID 05/09/16 [History] Tramadol HCl [Ultram] 25 mg PO BID 05/09/16 [History] Carvedilol [Coreg] 3.125 mg PO BID #0 05/12/16 [Rx] Levofloxacin [Levaquin] 500 mg PO Q48H #4 tablet 05/12/16 [Rx] Fosfomycin Tromethamine [Monurol] 3 gm PO ONCE #1 packet 05/16/16 [Rx] Allergies Iodinated Contrast Media - Oral and Allergy (Verified 04/03/16 19:37) See Comments UNABLE TO CONFIRM REACTIONS- ALL ALLERGIES OBTAINED THROUGH [facility] LAST APPT. Penicillins Allergy (Verified 04/03/16 19:37) See Comments UNABLE TO CONFIRM REACTIONS- ALL ALLERGIES OBTAINED THROUGH [facility] LAST APPT. povidone-iodine [From Betadine] Allergy (Verified 04/03/16 19:37) See Comments UNABLE TO CONFIRM REACTIONS- ALL ALLERGIES OBTAINED THROUGH [facility] LAST APPT. soap [From Betadine] Allergy (Verified 04/03/16 19:37) See Comments UNABLE TO CONFIRM REACTIONS- ALL ALLERGIES OBTAINED THROUGH [facility] LAST APPT. Sulfa (Sulfonamide Antibiotics) Allergy (Verified 04/03/16 19:37) See Comments UNABLE TO CONFIRM REACTIONS- ALL ALLERGIES OBTAINED THROUGH [facility] LAST APPT. Dopamine Adverse Reaction (Verified 05/10/16 11:17) Drowsy Patient has nausea and vomitting, drowsiness, and confusion. All Systems PM: A 10-system review of systems was performed and is negative for pertinent findings except as documented above in the HPI. - Constitutional Constitutional: fatigue, malaise, weakness, no chills, no fever(s), no night sweats - EENT Eyes: no change in vision, no discharge, no pain, no photophobia Ears: no ear discharge, no ear pain, no tinnitus Nose, mouth and throat: no dysphagia, no nasal discharge, no neck pain, no sore throat - Cardiovascular Cardiovascular ROS IM: no chest pain, no diaphoresis, no dyspnea, no lightheadedness, no palpitations, no syncope - Respiratory Respiratory: no cough, no dyspnea, no wheezing, no excessive phlegm production - Gastrointestinal Gastrointestinal: no abdominal pain, no diarrhea, no hematemesis, no hematochezia, no melena, no nausea, no vomiting - Genitourinary Genitourinary: no change in urinary stream, no dysuria, no flank pain, no hematuria - Musculoskeletal Musculoskeletal ROS IM: no numbness, no tingling - Integumentary Integumentary IM: no rash, no unusual bruising - Neurological Neurological ROS: no confusion, no convulsions, no focal weakness, no numbness, no tingling, no tremor(s) - Psychiatric Psychiatric: confusion - Hematologic/Lymphatic Hematologic/Lymphatic: no easy bruising - Constitutional Vitals: Temp Pulse Resp BP Pulse Ox 98.3 F 87 16 102/41 93 L 06/04/16 21:06 06/04/16 21:06 06/04/16 21:06 06/04/16 21:06 06/04/16 21:06 General appearance: Present: cooperative, A&O X 2, mild distress, answers questions appropriately - Eye Eye exam: Present: EOMI, PERRL, conjuntiva pink, sclera anicteric - Neck Neck exam general surgery: Present: supple, trachea midline. Absent: lymphadenopathy - Respiratory Respiratory exam: Present: CTAB. Absent: accessory muscle use, rales, rhonchi, wheezes - Cardiovascular Cardiovascular exam: Present: RRR, +S1, +S2. Absent: diastolic murmur, gallop, rubs, systolic murmur - GI/Abdominal GI/Abdominal exam: Present: normal bowel sounds, soft, no peritoneal signs. Absent: distended, tenderness - Extremities Exam Extremities exam: Present: warm, radial pulses palpable and symetrical. Absent : calf tenderness, cyanotic, pedal edema - Neurological Exam Neurological exam: Present: alert, oriented X3, no focal deficits, strengths equal and symetr throughout. Absent: facial droop, speech deficit - Skin Skin exam: Present: dry, intact Internal Med - H&P Results - Labs CBC & Chem 7: 06/04/16 17:30 06/04/16 17:30 - EKG Data -: EKG Interpreted by Myself EKG shows normal: sinus rhythm - EKG Data EKG comments: 06/04/16 21:52 intraventricular conduction delay and left axis deviation - Impressions Impressions Chest X-Ray 06/04/16 15:05 IMPRESSION: Clearing bilateral lower lobe airspace disease. D/ / Ld Davison MD / Ld Davison MD Interpreting Provider: Ld Davison MD Head CT 06/04/16 18:11 IMPRESSION: No acute intracranial abnormality. Stable calcified meningioma D/ / Gm Brown MD / Gm Brown MD Interpreting Provider: Gm Brown MD - Attending Attestation This document has been at least partially created by [employer] voice recognition technology by Dr. Sesay. Errors in grammar, wording or other phrases may exist. If errors are found after the documentation is signed, they will be addressed individually in the addendum section of this document when appropriate.
[2016-06-05] MEDS: GABAPENTIN TP PRN ×2 (01:35→17:42)
[2016-06-05] MEDS: TOPIRAMATE TP PRN ×2 (01:35→17:42)
[2016-06-05] MEDS: MELOXICAM TP PRN ×2 (01:35→17:42)
[2016-06-05] MEDS: LIDOCAINE TP PRN ×2 (01:35→17:42)
--- NOTE | 2016-06-05 07:59 | Nephrology Consult Note ---
Date of Encounter: 06/04/16 Time of Encounter: 07:57 Assessment and Plan (1) ESRD (end stage renal disease) on dialysis Status: Chronic The patient has end-stage renal disease and receives dialysis every Saturday. From renal perspective she is stable. Her mental status is back to her usual baseline. Vital signs are stable History of Present Illness - History of Present Illness This is an 86-year-old female with end-stage renal disease. She receives dialysis every Saturday in [place]. She had her usual outpatient dialysis yesterday. Apparently during the patient's transport back to the [facility] via vending route driver decided to take her to the emergency room. Reportedly the patient exhibited hypotension and some mental status changes. Patient does not recall this. The patient's dialysis treatment yesterday was stable. The nurse reports that the patient was a little bit less talkative than usual but otherwise her mental status was at her typical baseline. She did experience some hypotension that responded to normal saline administration. The patient was reportedly stable when she left the dialysis unit. Currently the patient feels fine. She reports no complaints. Her mental status is at her usual baseline. Blood pressure is 98/58. She remains afebrile. CT scan of the head was unremarkable for any acute changes. Chest x- ray shows improving infiltrates. Past Med Surg Social Fam HX - Past Medical History Medical history: arthritis, asthma, atrial fibrillation, cardiomyopathy, CHF, COPD, coronary artery disease, diabetes, dialysis, GERD, hyperlipidemia, hypertension, osteoporosis, renal disease, venous stasis, valvular heart disease , other Psychiatric history: anxiety, depression, other - Past Surgical History Surgical History: angioplasty/stent, hysterectomy, knee replacement, orthopedic , other, CHRISTY/BSO, other, vascular surgery - Social History Smoking Status: Never smoker Smokeless Tobacco Status: No Alcohol use: rarely Drug use: none - Family History Son Living Status: Still Living Hx Family Cardiac Disorders: Yes (heart problems) Father Living Status: Hx Family Cardiac Disorders: Yes Hx Family Respiratory Disorders: No Hx Family Cancer: Yes Hx Family GI Disorders: No Hx Family Endocrine Disorder: Yes (DM) Hx Family Neuromuscular Disorders: No Hx Family Neurologic Disorders: Yes Hx Family HEENT Disorders: No Hx Family Autoimmune Disorders: No Mother Living Status: Hx Family Cardiac Disorders: No Hx Family Respiratory Disorders: No Hx Family Cancer: No Hx Family GI Disorders: No Hx Family Endocrine Disorder: No Hx Family Neuromuscular Disorders: No Hx Family Neurologic Disorders: No Hx Family HEENT Disorders: No Hx Family Autoimmune Disorders: No Medications and Allergies Acetaminophen [Tylenol] 650 mg PO Q4H PRN 04/14/15 [History] Allopurinol [Zyloprim 100 MG] 100 mg PO DAILY 04/14/15 [History] Aspirin 81 mg PO DAILY 04/14/15 [History] Clopidogrel [Plavix] 75 mg PO DAILY 04/14/15 [History] Docusate Sodium [Colace] 100 mg PO DAILY 04/14/15 [History] Insulin LISPRO [HumaLOG] 2 - 12 units SQ TIDAC 04/14/15 [History] Ipratropium/Albuterol Neb [Duoneb] 3 ml IH Q6HR 04/14/15 [History] Omeprazole [PriLOSEC] 20 mg PO DAILY 04/14/15 [History] Sevelamer [Renvela] 800 mg PO TIDWM 04/14/15 [History] Ascorbate Calcium [Vitamin C] 500 mg PO DAILY 06/05/15 [History] Diclofenac Sodium [Voltaren] 2 gm TP QID PRN 06/05/15 [History] Duloxetine [Cymbalta] 60 mg PO DAILY 06/05/15 [History] Insulin DETEMIR [Levemir] 10 unit SQ HS 10/16/15 [History] Loperamide [Imodium] 2 mg PO Q4HR PRN 10/16/15 [History] Ethyl Chloride 1 appl TP AD PRN 05/09/16 [History] GuaiFENesin Liq [Robitussin Liq] 100 mg PO Q4H PRN 05/09/16 [History] Hydrocortisone [Proctozone-Hc] 1 appl RC QID PRN 05/09/16 [History] LORazepam [Ativan] 0.5 mg PO HS 05/09/16 [History] Pregabalin [Lyrica] 50 mg PO BID 05/09/16 [History] Promethazine [Phenergan] 25 mg PO Q4H PRN 05/09/16 [History] Citlalli-D Compound Cream 1 appl TP QID 05/09/16 [History] Tramadol HCl [Ultram] 25 mg PO BID 05/09/16 [History] Cyprohepatdine [Periactin] 4 mg PO HS 06/05/16 [History] Hydroxyzine HCl 25 mg PO Q4H PRN 06/05/16 [History] Acetaminophen [Tylenol] 650 mg PO Q6HR PRN #0 tablet 06/06/16 [Rx] Carvedilol [Coreg] 3.125 mg PO BID #0 06/06/16 [Rx] Allergies Iodinated Contrast Media - Oral and Allergy (Verified 04/03/16 19:37) See Comments UNABLE TO CONFIRM REACTIONS- ALL ALLERGIES OBTAINED THROUGH [facility] LAST APPT. Penicillins Allergy (Verified 04/03/16 19:37) See Comments UNABLE TO CONFIRM REACTIONS- ALL ALLERGIES OBTAINED THROUGH [facility] LAST APPT. povidone-iodine [From Betadine] Allergy (Verified 04/03/16 19:37) See Comments UNABLE TO CONFIRM REACTIONS- ALL ALLERGIES OBTAINED THROUGH [facility] LAST APPT. soap [From Betadine] Allergy (Verified 04/03/16 19:37) See Comments UNABLE TO CONFIRM REACTIONS- ALL ALLERGIES OBTAINED THROUGH [facility] LAST APPT. Sulfa (Sulfonamide Antibiotics) Allergy (Verified 04/03/16 19:37) See Comments UNABLE TO CONFIRM REACTIONS- ALL ALLERGIES OBTAINED THROUGH [facility] LAST APPT. Dopamine Adverse Reaction (Verified 05/10/16 11:17) Drowsy Patient has nausea and vomitting, drowsiness, and confusion. Review of Systems All Systems review (narrative): Patient is alert and oriented. She is in no acute distress. Lung sounds anteriorly otherwise clear. No wheezing rales or rhonchi. Heart regular rate and rhythm with a 2/6 systolic ejection murmur. Abdomen shows normal bowel sounds bruits masses organomegaly or tenderness. Lower extremities show no peripheral edema. There is a functioning AV fistula in the left arm. There is a power glide in the right upper extremity. Exam - Vital Signs Vital signs: Initial Vital Signs Temp Pulse Resp BP Pulse Ox 97.6 F 82 12 85/41 94 L 06/04/16 14:56 06/04/16 14:56 06/04/16 14:56 06/04/16 14:56 06/04/16 14:56 Vital Signs - Last 8 Hours Temp Pulse Resp BP Pulse Ox 06/05/16 04:47 98.7 F 92 16 98/58 91 L 06/05/16 00:01 98.6 F 86 16 101/62 96 Intake and Output 06/04/16 06/04/16 06/05/16 15:59 23:59 07:59 Intake Total 500 / 500 Balance 500 / 500 Intake: IV Fluids 500 / 500 0.9 % Sodium Chloride 500 500 / 500 ML @ 1875 mls/hr IVC . Q16M ONE Rx#:[id number] Other: Weight 92.6 kg Results - Lab Results 06/05/16 09:55 06/05/16 09:55 Most recent lab results Calcium 8.8 mg/dL (8.6-10.8) 06/04/16 17:30 Consult Discharge Plan - Plan Instructions: Hypotension (DC), End-Stage Kidney Disease (DC) Additional Instructions: follow up with PCP in one week. Stop Diltiazem until evaluated by PCP resume new dose of Coreg. Follow up with Dr. Paris Resume usual dialysis schedule. Referrals: Aroldo Paris DO [Non-Partnered Physician] - NO,PCP [Primary Care Provider] - (Patient will follow up with ECF PCP at [facility])
[2016-06-05] MEDS: Insulin LISPRO 300 UNITS/3 ML VIAL SQ SCH ×3 (10:06→16:56)
[2016-06-05 10:12] LABS: Hematocrit 29.7 % (35.3-44.9); Hemoglobin 9.3 g/dL (11.5-15.4); Mean Corpuscular HGB Conc 31.3 g/dL (31.6-35.5); Mean Corpuscular Hemoglobin 31.4 pg (28.0-33.3); Mean Corpuscular Volume 100.3 fL (83.0-100.0); Mean Platelet Volume 10.2 fL (9.4-12.4); Platelet Count 191 K/mcL (140-400); Red Blood Count 2.96 M/mcL (3.82-4.97); Red Cell Distribution Width 15.1 % (11.5-14.5)
[2016-06-05] MEDS: Aspirin 81 MG TAB.CHEW PO SCH (10:17)
[2016-06-05] MEDS: Pregabalin 50 MG CAPSULE PO SCH ×2 (10:17→21:26)
[2016-06-05] MEDS: traMADol 50 MG TABLET PO SCH ×2 (10:17→21:25)
[2016-06-05 11:01] LABS: Calcium 9.1 mg/dL (8.6-10.8); Potassium 3.6 mEq/L (3.5-4.5)
--- NOTE | 2016-06-05 11:11 | Internal Med Progress Note ---
<Ousmane Rogers - Last Filed: 06/05/16 15:15> Date of Encounter: 06/05/16 - Constitutional Vitals: Temp Pulse Resp BP Pulse Ox 98.2 F 84 18 104/66 93 L 06/05/16 12:00 06/05/16 12:00 06/05/16 12:00 06/05/16 12:00 06/05/16 12:00 Internal Medicine: Result - Labs CBC & Chem 7: 06/05/16 09:55 06/05/16 09:55 Labs: Short CBC 06/05/16 Range/Units 09:55 WBC 8.0 (4.3-11.1) K/mcL Hgb 9.3 L (11.5-15.4) g/dL Hct 29.7 L (35.3-44.9) % Plt Count 191 (140-400) K/mcL BMP 06/05/16 09:55 Sodium 141 Potassium 3.6 Chloride 104 Carbon Dioxide 25 BUN 16 Creatinine 4.04 H Glucose 161 H Calcium 9.1 - ABG Interpretation ABG results: PT/INR, D-dimer PT 12.3 Seconds (9.4-12.1) H 06/04/16 17:30 Consult Discharge Plan - Plan Referrals: NO,PCP [Primary Care Provider] - (Patient will follow up with ECF PCP at [facility]) - Attending Attestation I examined this patient and my medical decision-making was reviewed with the TICKET COLLECTOR OR USHER/PA/Advanced Practice Nurse/Resident Physician. I agree with the documented findings, disposition and treatment plan as described except to the extent set forth below. . 86-year-old female, full code Patient is admitted and being on the altered mental status secondary to hypertension. Chronic diagnoses include ESRD on hemodialysis Saturday and Fridays, diabetes mellitus type 2, atrial fibrillation, coronary artery disease, cardiomyopathy. Patient is seen at bedside, has no new complaints vital signs are stable. She shows improvement alert and oriented 3 , systemic physical exam is otherwise unremarkable Labs and imaging reviewed Work up including CT and electrolytes are stable. Continue to hold antihypertensives, replace potassium and monitor, continue observation Continue home medications. Anticipate discharge in the morning if patient remains stable. Plan of care discussed,verbalizes understanding. <Bob Wright - Last Filed: 06/05/16 16:04> Date of Encounter: 06/05/16 Time of Encounter: 11:11 - Assessment and plan (1) Acute metabolic encephalopathy Current Visit: Yes Status: Acute Assessment and plan: After her dialysis session yesterday, patient was being brought back to the correction but was severely hypotensive and had altered mental status, which she does not recall. Currently her encephalopathy is resolved. She is alert and oriented x3, no acute distress. Patient is answering questions appropriately. Etiology likely secondary to severe hypotension. Patient's blood pressure was 80s/40s when she first arrived. Of note, she is on multiple blood pressure medications, which will likely need to be adjusted by PCP outpatient. Plan: continue to hold home blood pressure medications Check TSH with morning labs. Orthostatic vitals pending. (2) Hypotension Current Visit: Yes Status: Acute Assessment and plan: Likely cause of patient's altered mental status. Patient is currently stable. Home blood pressure meds being held. Continue to monitor. Qualifiers: Hypotension type: hemodialysis-associated hypotension Qualified Code(s): I95.3 - Hypotension of hemodialysis (3) ESRD (end stage renal disease) on dialysis Current Visit: Yes Status: Chronic Assessment and plan: Patient gets dialysis every MWF. Managed by Dr. Paris- consult to nephrology. (4) Type 2 diabetes mellitus Current Visit: No Status: Chronic Assessment and plan: Continue with low dose sliding scale insulin ADA diet. Qualifiers: Diabetes mellitus complication status: with kidney complications Diabetes mellitus complication detail: with chronic kidney disease Diabetes mellitus intermediate insulin use: with intermediate use Chronic kidney disease stage: on chronic dialysis Qualified Code(s): E11.22 - Type 2 diabetes mellitus with diabetic chronic kidney disease; N18.6 - End stage renal disease; Z79.4 - long term (current) use of insulin; Z99.2 - Dependence on renal dialysis (5) Coronary artery disease Current Visit: Yes Status: Acute Assessment and plan: continue ASA, plavix, Qualifiers: Coronary Disease-Associated Artery/Lesion type: unspecified vessel or lesion type [place] vs. transplanted heart: unspecified whether apache or transplanted heart Associated angina: angina presence unspecified Qualified Code(s): I25.10 - Atherosclerotic heart disease of [place] coronary artery without angina pectoris (6) Afib Current Visit: Yes Status: Chronic Assessment and plan: rate controlled. Resumed Coreg at lower dose than home dose due to hypotension. Qualifiers: Atrial fibrillation type: chronic Qualified Code(s): I48.2 - Chronic atrial fibrillation (7) DVT prophylaxis Current Visit: No Status: Acute Assessment and plan: Heparin SQ - Subjective Interval history: 86 year old female evaluated at bedside. Patient denies nausea, vomiting, diarrhea, fever, chills. She is alert and oriented x3 today. - Constitutional Vitals: Temp Pulse Resp BP Pulse Ox 98.3 F 89 17 100/62 92 L 06/05/16 08:00 06/05/16 08:00 06/05/16 08:00 06/05/16 08:00 06/05/16 10:37 General appearance: Present: cooperative, mild distress, A&O X 3, no acute distress, answers questions appropriately - Head Head exam: Present: atraumatic, normocephalic - Neck Neck exam general surgery: Present: supple, trachea midline - Respiratory Respiratory exam: Present: wheezes - Cardiovascular Cardiovascular exam: Present: RRR. Absent: JVD - GI/Abdominal GI/Abdominal exam: Present: distended, normal bowel sounds. Absent: tenderness Additional comments: obese - Extremities Exam Additional comments: trace lower extremity edema bilaterally. - Neurological Exam Neurological exam: Present: alert, oriented X3, no focal deficits - Psychiatric Psychiatric exam: Present: normal affect, normal mood Internal Medicine: Result - Labs CBC & Chem 7: 06/05/16 09:55 06/05/16 09:55 Labs: Short CBC 06/05/16 Range/Units 09:55 WBC 8.0 (4.3-11.1) K/mcL Hgb 9.3 L (11.5-15.4) g/dL Hct 29.7 L (35.3-44.9) % Plt Count 191 (140-400) K/mcL BMP 06/05/16 09:55 Sodium 141 Potassium 3.6 Chloride 104 Carbon Dioxide 25 BUN 16 Creatinine 4.04 H Glucose 161 H Calcium 9.1 - ABG Interpretation ABG results: PT/INR, D-dimer PT 12.3 Seconds (9.4-12.1) H 06/04/16 17:30
--- NOTE | 2016-06-05 12:28 | Electrocardiograph Report ---
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
[2016-06-05] MEDS ORDERED: D5% in Water 1,000 ML IV PRN (15:30)
[2016-06-05] MEDS: Ipratropium/Albuterol Neb 3 ML IH SCH ×2 (17:08→21:57)
[2016-06-05] MEDS: *HR* Heparin 5,000 UNIT/ML VIAL SQ SCH (17:42)
[2016-06-05] MEDS ORDERED: *HR* LORazepam 0.5 MG TABLET PO PRN (19:55)
[2016-06-05] MEDS ORDERED: Insulin LISPRO 300 UNITS/3 ML VIAL SQ SCH (21:00)
[2016-06-06] MEDS: Ipratropium/Albuterol Neb 3 ML IH SCH ×3 (04:29→16:43)
[2016-06-06 05:23] LABS: Thyroid Stimulating Hormone 1.586 mcIU/mL (0.350-4.840)
[2016-06-06] MEDS: *HR* Heparin 5,000 UNIT/ML VIAL SQ SCH (05:39)
[2016-06-06] MEDS: Insulin LISPRO 300 UNITS/3 ML VIAL SQ SCH ×3 (07:58→17:08)
[2016-06-06] MEDS: Aspirin 81 MG TAB.CHEW PO SCH (08:08)
[2016-06-06] MEDS: traMADol 50 MG TABLET PO SCH (08:09)
[2016-06-06] MEDS: Pregabalin 50 MG CAPSULE PO SCH (08:09)
[2016-06-06] MEDS ORDERED: 0.9 % Sodium Chloride 250 ML IV PRN (08:21)
--- NOTE | 2016-06-06 08:21 | Nephrology Progress Note ---
Date of Encounter: 06/06/16 Time of Encounter: 08:20 - Assessment and Plan (1) ESRD (end stage renal disease) on dialysis Current Visit: Yes Status: Chronic Patient will undergo dialysis today. Her vital signs are stable. Mental status is at baseline. She should be able to be discharged following dialysis today. Subjective Interval history: The patient is alert and oriented. She is in no acute distress. She denies any complaints. Blood pressure is 118/77. Blood cultures are negative. She is scheduled for her usual dialysis today. Objective - Vital Signs Vital signs: Vital Signs Temp Pulse Resp BP Pulse Ox 06/06/16 07:35 97.3 F L 86 17 118/77 97 06/06/16 05:24 98.4 F 91 16 145/65 91 L 06/06/16 04:30 20 92 L 06/06/16 01:09 97.6 F 89 20 120/73 06/05/16 22:00 20 06/05/16 18:53 97.6 F 92 18 113/66 06/05/16 12:00 98.2 F 84 18 104/66 93 L 06/05/16 10:37 92 L Intake and Output 06/05/16 06/06/16 06/06/16 23:59 07:59 15:59 Intake Total 150 / 150 100 / 100 Output Total 0 / 0 Balance 150 / 150 100 / 100 Intake: Oral 150 / 150 100 / 100 Output: Urine 0 / 0 Other: # Urine Diapers 1 Weight 99.155 kg Blood Glucose* 165 132 Patient Weight 06/06/16 23:59 Weight 99.155 kg - General Appearance Exam: Patient is alert and oriented. She is in no acute distress. Lungs clear to auscultation. Heart regular rate and rhythm. Abdomen is benign. There is no lower extremity swelling. There is an AV fistula in the left arm in a power glide in the right arm. - Lab 06/05/16 09:55 06/05/16 09:55 Most recent lab results Calcium 9.1 mg/dL (8.6-10.8) 06/05/16 09:55 Consult Discharge Plan - Plan Referrals: NO,PCP [Primary Care Provider] - (Patient will follow up with ECF PCP at [facility])
[2016-06-06] MEDS ORDERED: 0.9 % Sodium Chloride 2,000 ML ONE (09:14)
[2016-06-06 14:03] VITALS: BP 143/97
--- NOTE | 2016-06-06 15:28 | Physician Discharge Referral ---
ExtendedCare Referral Info Transfer To: SNF Provider in Charge after Transfer: PCP Institutional Level of Care: Skilled - Diagnosis (1) Acute metabolic encephalopathy Priority: Primary Status: Resolved (2) Hypotension Priority: Primary Status: Resolved (3) Afib Priority: Secondary Status: Chronic (4) ESRD (end stage renal disease) on dialysis Priority: Secondary Status: Chronic (5) Diastolic congestive heart failure with preserved left ventricular function , NYHA class 2 Priority: Secondary Status: Chronic (6) CAD (coronary artery disease) Priority: Secondary Status: Chronic (7) COPD (chronic obstructive pulmonary disease) Priority: Secondary Status: Chronic (8) DM (diabetes mellitus), type 2 with renal complications Priority: Secondary Status: Chronic (9) Dyslipidemia Priority: Secondary Status: Chronic Prognosis: Fair Aware of Diagnosis: Patient Aware of Prognosis: Patient - Transfer Medications Home Medications: Acetaminophen [Tylenol] 650 mg PO Q4H PRN 04/14/15 [History] Allopurinol [Zyloprim 100 MG] 100 mg PO DAILY 04/14/15 [History] Aspirin 81 mg PO DAILY 04/14/15 [History] Clopidogrel [Plavix] 75 mg PO DAILY 04/14/15 [History] Docusate Sodium [Colace] 100 mg PO DAILY 04/14/15 [History] Insulin LISPRO [HumaLOG] 2 - 12 units SQ TIDAC 04/14/15 [History] Ipratropium/Albuterol Neb [Duoneb] 3 ml IH Q6HR 04/14/15 [History] Omeprazole [PriLOSEC] 20 mg PO DAILY 04/14/15 [History] Sevelamer [Renvela] 800 mg PO TIDWM 04/14/15 [History] Ascorbate Calcium [Vitamin C] 500 mg PO DAILY 06/05/15 [History] Diclofenac Sodium [Voltaren] 2 gm TP QID PRN 06/05/15 [History] Duloxetine [Cymbalta] 60 mg PO DAILY 06/05/15 [History] Insulin DETEMIR [Levemir] 10 unit SQ HS 10/16/15 [History] Loperamide [Imodium] 2 mg PO Q4HR PRN 10/16/15 [History] Ethyl Chloride 1 appl TP AD PRN 05/09/16 [History] GuaiFENesin Liq [Robitussin Liq] 100 mg PO Q4H PRN 05/09/16 [History] Hydrocortisone [Proctozone-Hc] 1 appl RC QID PRN 05/09/16 [History] LORazepam [Ativan] 0.5 mg PO HS 05/09/16 [History] Pregabalin [Lyrica] 50 mg PO BID 05/09/16 [History] Promethazine [Phenergan] 25 mg PO Q4H PRN 05/09/16 [History] Citlalli-D Compound Cream 1 appl TP QID 05/09/16 [History] Tramadol HCl [Ultram] 25 mg PO BID 05/09/16 [History] Cyprohepatdine [Periactin] 4 mg PO HS 06/05/16 [History] Hydroxyzine HCl 25 mg PO Q4H PRN 06/05/16 [History] Acetaminophen [Tylenol] 650 mg PO Q6HR PRN #0 tablet 06/06/16 [Rx] Carvedilol [Coreg] 3.125 mg PO BID #0 06/06/16 [Rx] Allergies/Adverse Reactions: Allergies Iodinated Contrast Media - Oral and Allergy (Verified 04/03/16 19:37) See Comments UNABLE TO CONFIRM REACTIONS- ALL ALLERGIES OBTAINED THROUGH [facility] LAST APPT. Penicillins Allergy (Verified 04/03/16 19:37) See Comments UNABLE TO CONFIRM REACTIONS- ALL ALLERGIES OBTAINED THROUGH [facility] LAST APPT. povidone-iodine [From Betadine] Allergy (Verified 04/03/16 19:37) See Comments UNABLE TO CONFIRM REACTIONS- ALL ALLERGIES OBTAINED THROUGH [facility] LAST APPT. soap [From Betadine] Allergy (Verified 04/03/16 19:37) See Comments UNABLE TO CONFIRM REACTIONS- ALL ALLERGIES OBTAINED THROUGH [facility] LAST APPT. Sulfa (Sulfonamide Antibiotics) Allergy (Verified 04/03/16 19:37) See Comments UNABLE TO CONFIRM REACTIONS- ALL ALLERGIES OBTAINED THROUGH [facility] LAST APPT. Dopamine Adverse Reaction (Verified 05/10/16 11:17) Drowsy Patient has nausea and vomitting, drowsiness, and confusion. - Respiratory Orders Smoking Cessation: Smoking cessation has been advised. For more information, call the [place] Tobacco Quit Line at 9-744-HCEB-NOW. - Advance Directives Code Status: Full Code - Mobility Orders Other (As per physical therapy) - Rehabiliation Orders Rehab Potential: Fair - Diet Orders Renal, Cardiac CERTIFICATION: I certify that the transfer of the above named patient to an Extended Care Facility is necessary for the continuing treatment of the diagnosis listed. The above information is true and accurate reflection of patient's current condition. Confidential - Redisclosure prohibited without a patient's written consent.
--- NOTE | 2016-06-06 16:05 | Discharge Summary ---
<Bob Wright - Last Filed: 06/06/16 16:28> Date of Encounter: 06/06/16 Time of Encounter: 09:00 - Discharge Diagnosis (1) Acute metabolic encephalopathy Priority: Primary Status: Resolved (2) Hypotension Priority: Secondary Status: Resolved Qualifiers: Hypotension type: hemodialysis-associated hypotension Qualified Code(s): I95.3 - Hypotension of hemodialysis (3) ESRD (end stage renal disease) on dialysis Priority: Secondary Status: Chronic (4) Type 2 diabetes mellitus Priority: Secondary Status: Chronic Qualifiers: Diabetes mellitus complication status: with kidney complications Diabetes mellitus complication detail: with chronic kidney disease Diabetes mellitus intermediate insulin use: with marine oil terminal superintendent use Chronic kidney disease stage: on chronic dialysis Qualified Code(s): E11.22 - Type 2 diabetes mellitus with diabetic chronic kidney disease; N18.6 - End stage renal disease; Z79.4 - exterminator helper (current) use of insulin; Z99.2 - Dependence on renal dialysis (5) Coronary artery disease Priority: Secondary Status: Acute Qualifiers: Coronary Disease-Associated Artery/Lesion type: unspecified vessel or lesion type [place] vs. transplanted heart: unspecified whether [place] or transplanted heart Associated angina: angina presence unspecified Qualified Code(s): I25.10 - Atherosclerotic heart disease of [place] coronary artery without angina pectoris (6) Afib Priority: Secondary Status: Chronic Qualifiers: Atrial fibrillation type: chronic Qualified Code(s): I48.2 - Chronic atrial fibrillation (7) DVT prophylaxis Priority: Secondary Status: Acute - Discharge Medications Home Medications: Acetaminophen [Tylenol] 650 mg PO Q4H PRN 04/14/15 [History] Allopurinol [Zyloprim 100 MG] 100 mg PO DAILY 04/14/15 [History] Aspirin 81 mg PO DAILY 04/14/15 [History] Clopidogrel [Plavix] 75 mg PO DAILY 04/14/15 [History] Docusate Sodium [Colace] 100 mg PO DAILY 04/14/15 [History] Insulin LISPRO [HumaLOG] 2 - 12 units SQ TIDAC 04/14/15 [History] Ipratropium/Albuterol Neb [Duoneb] 3 ml IH Q6HR 04/14/15 [History] Omeprazole [PriLOSEC] 20 mg PO DAILY 04/14/15 [History] Sevelamer [Renvela] 800 mg PO TIDWM 04/14/15 [History] Ascorbate Calcium [Vitamin C] 500 mg PO DAILY 06/05/15 [History] Diclofenac Sodium [Voltaren] 2 gm TP QID PRN 06/05/15 [History] Duloxetine [Cymbalta] 60 mg PO DAILY 06/05/15 [History] Insulin DETEMIR [Levemir] 10 unit SQ HS 10/16/15 [History] Loperamide [Imodium] 2 mg PO Q4HR PRN 10/16/15 [History] Ethyl Chloride 1 appl TP AD PRN 05/09/16 [History] GuaiFENesin Liq [Robitussin Liq] 100 mg PO Q4H PRN 05/09/16 [History] Hydrocortisone [Proctozone-Hc] 1 appl RC QID PRN 05/09/16 [History] LORazepam [Ativan] 0.5 mg PO HS 05/09/16 [History] Pregabalin [Lyrica] 50 mg PO BID 05/09/16 [History] Promethazine [Phenergan] 25 mg PO Q4H PRN 05/09/16 [History] Citlalli-D Compound Cream 1 appl TP QID 05/09/16 [History] Tramadol HCl [Ultram] 25 mg PO BID 05/09/16 [History] Cyprohepatdine [Periactin] 4 mg PO HS 06/05/16 [History] Hydroxyzine HCl 25 mg PO Q4H PRN 06/05/16 [History] Acetaminophen [Tylenol] 650 mg PO Q6HR PRN #0 tablet 06/06/16 [Rx] Carvedilol [Coreg] 3.125 mg PO BID #0 06/06/16 [Rx] Allergies/Adverse Reactions: Allergies Iodinated Contrast Media - Oral and Allergy (Verified 04/03/16 19:37) See Comments UNABLE TO CONFIRM REACTIONS- ALL ALLERGIES OBTAINED THROUGH [facility] LAST APPT. Penicillins Allergy (Verified 04/03/16 19:37) See Comments UNABLE TO CONFIRM REACTIONS- ALL ALLERGIES OBTAINED THROUGH [facility] LAST APPT. povidone-iodine [From Betadine] Allergy (Verified 04/03/16 19:37) See Comments UNABLE TO CONFIRM REACTIONS- ALL ALLERGIES OBTAINED THROUGH [facility] LAST APPT. soap [From Betadine] Allergy (Verified 04/03/16 19:37) See Comments UNABLE TO CONFIRM REACTIONS- ALL ALLERGIES OBTAINED THROUGH [facility] LAST APPT. Sulfa (Sulfonamide Antibiotics) Allergy (Verified 04/03/16 19:37) See Comments UNABLE TO CONFIRM REACTIONS- ALL ALLERGIES OBTAINED THROUGH [facility] LAST APPT. Dopamine Adverse Reaction (Verified 05/10/16 11:17) Drowsy Patient has nausea and vomitting, drowsiness, and confusion. Date of admission: 06/04/16 19:52 Primary care physician: PCP NO Consults: 06/04/16 21:35 Consult to Occupational Therapy [CONS] Routine Comment: Evaluate, develop and implement POC Consult to Physical Therapy [CONS] Routine Comment: Evaluate, develop and implement POC Consult to Supervisor Ticket Sales [CONS] Routine Reason for SW Consult: Discharge planning-pt at [facility]. Family/pt wishing to discuss advanced directives in detail with SS/care team. Please see NN 06/05/16 06:56 Consult to Nephrology [CONS] Routine Consulting Provider: [facility] lsfredo DUMONT Reason for Consult: ESRD Call Completed: No 06/06/16 08:30 Consult to Dialysis [CONS] ONCE - Patient Status Disposition: Transfer SNF Condition: Fair Overall status at discharge: patient is progressing back to baseline - Discharge Instructions Instructions: Hypotension (DC), End-Stage Kidney Disease (DC) Follow Up With: RENETTA,PCP [Primary Care Provider] - (Patient will follow up with ECF PCP at [facility]) Aroldo Dumont DO [Non-Partnered Physician] - Additional Instructions: follow up with PCP in one week. Stop Diltiazem until evaluated by PCP resume new dose of Coreg. Follow up with Dr. Dumont Resume usual dialysis schedule. - Diet and Activity Activity: ambulate only with your walker Diet: other (diabetic, renal diet. ) Hospital course: Ms. Crowder is a 86 year old female with PMHx of ESRD on hemodialysis, DM, HTN, Afib, cardiomyopathy, CAD. She presented to the ED on 06/04/16 for hypotension and increased confusion that occurred during her dialysis session. Afterwards, the patient did not remember the episodes of this event. Patient felt tired, weak at this time. She did not have any associated nausea or vomiting. After arrival to the ED, patient was found to be severely hypotensive, with her lowest blood pressure readings 70s/30s. Patient is on Diltiazem and Coreg. The etiology of her altered mental status was likely due to hypotension. After her hypotension resumed, she was restarted on Coreg at a lower dose. Her blood pressures remained stable afterwards. During her hospital stay, patient resumed her usual dialysis sessions. patient continued to be monitored in the hospital setting. She had no further acute events, and she was cleared for discharge by nephrology. She remained stable until her discharge. Patient's Diltiazem was stopped, and her Coreg was resumed at a lower dose. She should follow up with her PCP, who can make adjustments to her home medications as necessary. Plan: follow up with PCP in one week. Stop Diltiazem until evaluated by PCP resume new dose of Coreg. Follow up with Dr. Dumont Resume usual dialysis schedule. - Time Spent with Patient Total time spent providing and/or coordinating discharge services: - Constitutional Vitals: Temp Pulse Resp BP Pulse Ox 97.3 F L 86 16 143/97 97 06/06/16 13:55 06/06/16 07:35 06/06/16 13:55 06/06/16 13:55 06/06/16 07:35 General appearance: Present: cooperative, mild distress, A&O X 3, no acute distress, answers questions appropriately - Head Head exam: Present: atraumatic, normocephalic - Neck Neck exam general surgery: Present: supple, trachea midline - Respiratory Respiratory exam: Present: wheezes - Cardiovascular Cardiovascular exam: Present: irregular rhythm - GI/Abdominal GI/Abdominal exam: Present: normal bowel sounds, soft. Absent: distended, tenderness - Extremities Exam Extremities exam: Absent: cyanotic, pedal edema - Neurological Exam Neurological exam: Present: alert, oriented X3, no focal deficits - Psychiatric Psychiatric exam: Present: normal affect, normal mood <Ousmane Rogers - Last Filed: 06/06/16 18:11> - Discharge Diagnosis (1) Acute metabolic encephalopathy Status: Resolved (2) Hypotension Status: Resolved Qualifiers: Hypotension type: hemodialysis-associated hypotension Qualified Code(s): I95.3 - Hypotension of hemodialysis (3) Afib Status: Chronic Qualifiers: Atrial fibrillation type: chronic Qualified Code(s): I48.2 - Chronic atrial fibrillation (4) ESRD (end stage renal disease) on dialysis Status: Chronic (5) Diastolic congestive heart failure with preserved left ventricular function , NYHA class 2 Status: Chronic (6) CAD (coronary artery disease) Status: Chronic Qualifiers: Coronary Disease-Associated Artery/Lesion type: [place] artery [place] vs. transplanted heart: [place] heart Associated angina: without angina Qualified Code(s): I25.10 - Atherosclerotic heart disease of [place] coronary artery without angina pectoris (7) COPD (chronic obstructive pulmonary disease) Status: Chronic Qualifiers: COPD type: unspecified COPD Qualified Code(s): J44.9 - Chronic obstructive pulmonary disease, unspecified (8) DM (diabetes mellitus), type 2 with renal complications Status: Chronic Qualifiers: Diabetes mellitus complication detail: with chronic kidney disease Diabetes mellitus marine oil terminal superintendent insulin use: with marine oil terminal superintendent use Chronic kidney disease stage: on chronic dialysis Qualified Code(s): E11.22 - Type 2 diabetes mellitus with diabetic chronic kidney disease; N18.6 - End stage renal disease; Z79.4 - [facility] (current) use of insulin; Z99.2 - Dependence on renal dialysis (9) Dyslipidemia Status: Chronic Date of admission: 06/04/16 19:52 Primary care physician: PCP NO Consults: 06/04/16 21:35 Consult to Occupational Therapy [CONS] Routine Comment: Evaluate, develop and implement POC Consult to Physical Therapy [CONS] Routine Comment: Evaluate, develop and implement POC Consult to Supervisor Ticket Sales [CONS] Routine Reason for SW Consult: Discharge planning-pt at [facility]. Family/pt wishing to discuss advanced directives in detail with SS/care team. Please see NN 06/05/16 06:56 Consult to Nephrology [CONS] Routine Consulting Provider: [facility] [place] DUMONT Reason for Consult: ESRD Call Completed: No 06/06/16 08:30 Consult to Dialysis [CONS] ONCE Hospital course: Ms. Crowder is a 86 year old female - Time Spent with Patient Total time spent providing and/or coordinating discharge services: - Constitutional Vitals: Temp Pulse Resp BP Pulse Ox 97.3 F L 86 16 143/97 97 06/06/16 13:55 06/06/16 07:35 06/06/16 16:43 06/06/16 13:55 06/06/16 16:43 - Attending Attestation I examined this patient and my medical decision-making was reviewed with the TAR KETTLE RUNNER/PA/Advanced Practice Nurse/Resident Physician. I agree with the documented findings, disposition and treatment plan as described except to the extent set forth below. . 86-year-old female, full code Patient wass admitted and being on the altered mental status secondary to hypotension. Chronic diagnoses include ESRD on hemodialysis Saturday and Fridays, diabetes mellitus type 2, atrial fibrillation, coronary artery disease, cardiomyopathy. Patient is seen at bedside during hemodialysis, has improved, BP has improved, has no new complains vital signs are stable. She may be discharged back to ECF on current dose of Coreg. Hold DIltiazem, may be restarted by PCP at SNF/[facility] if BP is >140/90 persistently. Plan of care discussed, verbalized understanding Immunization is UTD
== END 2016-06-06 18:06 ==
LOC: EMEROO 14:55 → 2ANU 14:55 → SUATTDRO 19:52 → 2ANU 20:40
PROVIDERS: ADMIT Family Medicine; ATTEND Internal Medicine

== ENCOUNTER 2016-07-26 09:26 | Observation (INO) ==
--- NOTE | 2016-07-26 09:34 | Emergency Department Note ---
Disposition Clinical Impression: Generalized weakness, History of end stage renal disease, History of renal dialysis, Anemia, Hypotension, UTI (urinary tract infection), Pleural effusion, Pulmonary edema Disposition: Admitted As Inpatient Condition: Fair General Adult HPI - General Chief complaint: ED Weakness Stated complaint: weakness/low BP Time Seen by Provider: 07/26/16 09:28 - Related Data Home Medications Medication Instructions Recorded Confirmed Allopurinol [Zyloprim 100 MG] 100 mg PO DAILY 04/14/15 07/26/16 Aspirin 81 mg PO DAILY 04/14/15 07/26/16 Clopidogrel [Plavix] 75 mg PO DAILY 04/14/15 07/26/16 Docusate Sodium [Colace] 100 mg PO DAILY 04/14/15 07/26/16 Insulin LISPRO [HumaLOG] 2 - 12 units SQ TIDAC 04/14/15 07/26/16 Ipratropium/Albuterol Neb [Duoneb] 3 ml IH Q6HR 04/14/15 07/26/16 Omeprazole [PriLOSEC] 20 mg PO DAILY 04/14/15 07/26/16 Sevelamer [Renvela] 800 mg PO TIDWM 04/14/15 07/26/16 Ascorbate Calcium [Vitamin C] 500 mg PO DAILY 06/05/15 07/26/16 Diclofenac Sodium [Voltaren] 2 gm TP QID PRN 06/05/15 07/26/16 Duloxetine [Cymbalta] 60 mg PO DAILY 06/05/15 07/26/16 Insulin DETEMIR [Levemir] 10 unit SQ HS 10/16/15 07/26/16 Loperamide [Imodium] 2 mg PO Q4HR PRN 10/16/15 07/26/16 Ethyl Chloride 1 appl TP AD PRN 05/09/16 07/26/16 GuaiFENesin Liq [Robitussin Liq] 100 mg PO Q4H PRN 05/09/16 07/26/16 Hydrocortisone [Proctozone-Hc] 1 appl RC QID PRN 05/09/16 07/26/16 LORazepam [Ativan] 0.5 mg PO HS 05/09/16 07/26/16 Pregabalin [Lyrica] 50 mg PO BID 05/09/16 07/26/16 Promethazine [Phenergan] 25 mg PO Q4H PRN 05/09/16 07/26/16 Citlalli-D Compound Cream 1 appl TP QID 05/09/16 07/26/16 Tramadol HCl [Ultram] 25 mg PO BID 05/09/16 07/26/16 Cyprohepatdine [Periactin] 4 mg PO HS 06/05/16 07/26/16 Hydroxyzine HCl 25 mg PO Q4H PRN 06/05/16 07/26/16 Previous Rx's Medication Instructions Recorded Acetaminophen [Tylenol] 650 mg PO Q6HR PRN #0 tablet 06/06/16 Carvedilol [Coreg] 3.125 mg PO BID #0 06/06/16 Allergies Allergy/AdvReac Type Severity Reaction Status Date / Time Iodinated Contrast Media - Allergy See Verified 04/03/16 19:37 Oral and Comments Penicillins Allergy See Verified 04/03/16 19:37 Comments povidone-iodine Allergy See Verified 04/03/16 19:37 [From Betadine] Comments soap [From Betadine] Allergy See Verified 04/03/16 19:37 Comments Sulfa (Sulfonamide Allergy See Verified 04/03/16 19:37 Antibiotics) Comments Dopamine AdvReac Drowsy Verified 05/10/16 11:17 Past Medical History - Past Medical History Medical history: Reports: arthritis, asthma, atrial fibrillation, cardiomyopathy , CHF, COPD, coronary artery disease, diabetes, dialysis, GERD, hyperlipidemia, hypertension, osteoporosis, renal disease, venous stasis, valvular heart disease , other Surgical history: Reports: angioplasty/stent, hysterectomy, knee replacement, orthopedic, other, CHRISTY/BSO, other, vascular surgery Psychiatric history: Reports: anxiety, depression, other 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-contributory - Social History Smoking Status: Never smoker Smokeless Tobacco Status: No Alcohol use: Reports: rarely Drug use: Reports: none Course Vital Signs Temperature 98.9 F 07/26/16 09:28 Pulse Rate 94 07/26/16 09:28 Respiratory Rate 22 07/26/16 09:28 Blood Pressure 90/54 07/26/16 09:28 O2 Sat by Pulse Oximetry 91 07/26/16 09:28 Temperature 98.9 F 07/26/16 09:28 Pulse Rate 90 07/26/16 13:30 Respiratory Rate 20 07/26/16 14:03 Blood Pressure 96/51 07/26/16 14:03 O2 Sat by Pulse Oximetry 94 07/26/16 15:29 Oxygen Delivery Oxygen Delivery Nasal Cannula Medical Decision Making - Lab Data Result diagrams: 07/26/16 10:01 07/26/16 10:01 Lab Results 07/26/16 07/26/16 07/26/16 Range/Units 10:01 10:01 10:01 WBC 8.3 (4.3-11.1) K/mcL RBC 3.30 L (3.82-4.97) M/mcL Hgb 9.7 L (11.5-15.4) g/dL Hct 31.6 L (35.3-44.9) % MCV 95.8 (83.0-100.0) fL MCH 29.4 (28.0-33.3) pg MCHC 30.7 L (31.6-35.5) g/dL RDW 15.9 H (11.5-14.5) % Plt Count 188 (140-400) K/mcL MPV 9.6 (9.4-12.4) fL Immature Gran % 0.6 (0-4) % Seg Neutrophils % 67.3 % Lymphocytes % 14.9 % Monocytes % 12.1 % Eosinophils % 4.7 % Basophils % 0.4 % Neutrophils # 5.6 (1.6-8.9) K/mcL Lymphocytes # 1.2 (0.6-4.6) K/mcL Monocytes # 1.0 (0.0-1.3) K/mcL Eosinophils # 0.4 (0.0-0.6) K/mcL Basophils # 0.0 (0.0-0.2) K/mcL PT (9.4-12.1) Seconds INR APTT (26.0-36.0) Seconds Sodium (136-145) mEq/L Potassium (3.5-4.5) mEq/L Chloride (98-109) mEq/L Carbon Dioxide (19-29) mEq/L BUN (7-20) mg/dL Creatinine (0.57-1.11) mg/dL Est GFR ( Amer) (> 60) Est GFR (Non-Af Amer) (> 60) BUN/Creatinine Ratio (6-26) Glucose (70-99) mg/dL Calculated Osmolality (280-300) Lactic Acid 1.5 (0.5-2.2) mmol/L Calcium (8.6-10.8) mg/dL Phosphorus (2.3-4.7) mg/dL Magnesium (1.6-2.6) mg/dL Total Bilirubin (0.2-1.2) mg/dL Direct Bilirubin (0.0-0.5) mg/dL Indirect Bilirubin (0.0-1.2) mg/dL AST (5-34) Units/L ALT (0-55) Units/L Alkaline Phosphatase (38-126) Units/L Troponin I 0.03 (0-0.03) ng/mL Serum Total Protein (6.0-8.3) g/dL Albumin (3.5-5.0) g/dL Globulin (2.4-3.5) g/dL Albumin/Globulin Ratio (1.1-2.2) Ur Specimen Adequacy Urine Color (Yellow) Urine Clarity (Clear) Urine pH (5.0-8.0) pH Units Ur Specific [place] (1.010-1.025) Urine Protein (Neg-Trace) mg/dL Urine Glucose (UA) (Normal) mg/dL Urine Ketones (Negative) mg/dL Urine Blood (Negative) Urine Nitrite (Negative) Urine Bilirubin (Negative) Urine Urobilinogen (Normal) mg/dL Ur Leukocyte Esterase (Negative) Urine Microscopic RBC (0-3) per hpf Urine Microscopic WBC (0-3) per hpf Ur Squamous Epith Cells (None-Few) per lpf Calcium Oxalate Crystal Urine Bacteria (None-Few) per hpf Hyaline Casts (None-Few) per lpf Ur Culture Indicated? (NO) 07/26/16 07/26/16 07/26/16 Range/Units 10:01 10:01 10:10 WBC (4.3-11.1) K/mcL RBC (3.82-4.97) M/mcL Hgb (11.5-15.4) g/dL Hct (35.3-44.9) % MCV (83.0-100.0) fL MCH (28.0-33.3) pg MCHC (31.6-35.5) g/dL RDW (11.5-14.5) % Plt Count (140-400) K/mcL MPV (9.4-12.4) fL Immature Gran % (0-4) % Seg Neutrophils % % Lymphocytes % % Monocytes % % Eosinophils % % Basophils % % Neutrophils # (1.6-8.9) K/mcL Lymphocytes # (0.6-4.6) K/mcL Monocytes # (0.0-1.3) K/mcL Eosinophils # (0.0-0.6) K/mcL Basophils # (0.0-0.2) K/mcL PT 12.6 H (9.4-12.1) Seconds INR 1.2 APTT 30.8 (26.0-36.0) Seconds Sodium 139 (136-145) mEq/L Potassium 3.6 (3.5-4.5) mEq/L Chloride 98 (98-109) mEq/L Carbon Dioxide 26 (19-29) mEq/L BUN 24 H (7-20) mg/dL Creatinine 4.18 H (0.57-1.11) mg/dL Est GFR ( Amer) 12 L (> 60) Est GFR (Non-Af Amer) 10 L (> 60) BUN/Creatinine Ratio 6 (6-26) Glucose 86 (70-99) mg/dL Calculated Osmolality 291 (280-300) Lactic Acid (0.5-2.2) mmol/L Calcium 9.4 (8.6-10.8) mg/dL Phosphorus 2.7 (2.3-4.7) mg/dL Magnesium 1.5 L (1.6-2.6) mg/dL Total Bilirubin 0.6 (0.2-1.2) mg/dL Direct Bilirubin 0.2 (0.0-0.5) mg/dL Indirect Bilirubin 0.4 (0.0-1.2) mg/dL AST 10 (5-34) Units/L ALT < 6 (0-55) Units/L Alkaline Phosphatase 149 H (38-126) Units/L Troponin I (0-0.03) ng/mL Serum Total Protein 7.0 (6.0-8.3) g/dL Albumin 2.3 L (3.5-5.0) g/dL Globulin 4.7 H (2.4-3.5) g/dL Albumin/Globulin Ratio 0.5 L (1.1-2.2) Ur Specimen Adequacy See below A Urine Color Yellow (Yellow) Urine Clarity Cloudy A (Clear) Urine pH 8.5 H (5.0-8.0) pH Units Ur Specific [place] 1.020 (1.010-1.025) Urine Protein >=300 H (Neg-Trace) mg/dL Urine Glucose (UA) Normal (Normal) mg/dL Urine Ketones Negative (Negative) mg/dL Urine Blood Large H (Negative) Urine Nitrite Negative (Negative) Urine Bilirubin Negative (Negative) Urine Urobilinogen Normal (Normal) mg/dL Ur Leukocyte Esterase Large H (Negative) Urine Microscopic RBC 5-15 H (0-3) per hpf Urine Microscopic WBC 5-15 H (0-3) per hpf Ur Squamous Epith Cells Few (None-Few) per lpf Calcium Oxalate Crystal Present Urine Bacteria Many H (None-Few) per hpf Hyaline Casts Few (None-Few) per lpf Ur Culture Indicated? YES A (NO) Attestation Statement - Attestation Attestation: I examined this patient and my medical decision-making was reviewed with the HYDRAULIC REPAIRER/PA/Advanced Practice Nurse/Resident Physician. I agree with the documented findings, disposition and treatment plan as described except to the extent set forth below. Face face time provided Patient presents via EMS with generalized weakness and hypotension. She has a history of dialysis-dependent kidney disease. Last round of dialysis was yesterday. She complains of generalized weakness without focality. Patient evaluated in conjunction with resident physician
--- NOTE | 2016-07-26 09:38 | Emergency Department Note ---
Disposition Clinical Impression: Generalized weakness, History of end stage renal disease, History of renal dialysis, Pleural effusion Anemia Qualifiers: Anemia type: unspecified type Qualified Code(s): D64.9 - Anemia, unspecified Hypotension Qualifiers: Hypotension type: unspecified hypotension type Qualified Code(s): I95.9 - Hypotension, unspecified UTI (urinary tract infection) Qualifiers: Urinary tract infection type: site unspecified Hematuria presence: without hematuria Qualified Code(s): N39.0 - Urinary tract infection, site not specified Pulmonary edema Qualifiers: Chronicity: chronic Qualified Code(s): J81.1 - Chronic pulmonary edema Disposition: Admitted As Inpatient Condition: Fair Referrals: NO,PCP [Primary Care Provider] - Forms: ED Satisfaction Letter Time of Disposition: 10:54 Weakness HPI - General Chief complaint: ED Weakness Stated complaint: weakness/low BP Time Seen by Provider: 07/26/16 09:28 Source: patient, family, EMS Mode of arrival: EMS Limitations: no limitations Nursing Notes Reviewed: Yes Vital Signs Reviewed: Yes - History of Present Illness HPI Narrative: Patient is an 86-year-old female with past medical history of hypertension, hyperlipidemia, COPD, CHF, dialysis dependent and goes to dialysis 3 times a week most recent dialysis was yesterday and she has not missed any appointments. She was at the pulmonologists office today due to follow up for a pulmonary nodule and pulmonary effusion. She had blood pressure reading of 70 /40 and was sent to the ED for further evaluation. She currently denies any chest pain, shortness of breath, abdominal pain, nausea, vomiting. She had a temperature earlier of 100, she was given tylenol. Daughter states that she was recently treated for pneumonia. She was seen in the ED on Saturday and sent home. She does have generalized weakness. Otherwise, no other current complaints. - Related Data Home Medications Medication Instructions Recorded Confirmed Acetaminophen [Tylenol] 650 mg PO Q4H PRN 04/14/15 06/05/16 Allopurinol [Zyloprim 100 MG] 100 mg PO DAILY 04/14/15 06/05/16 Aspirin 81 mg PO DAILY 04/14/15 06/05/16 Clopidogrel [Plavix] 75 mg PO DAILY 04/14/15 06/05/16 Docusate Sodium [Colace] 100 mg PO DAILY 04/14/15 06/05/16 Insulin LISPRO [HumaLOG] 2 - 12 units SQ TIDAC 04/14/15 06/05/16 Ipratropium/Albuterol Neb [Duoneb] 3 ml IH Q6HR 04/14/15 06/05/16 Omeprazole [PriLOSEC] 20 mg PO DAILY 04/14/15 06/05/16 Sevelamer [Renvela] 800 mg PO TIDWM 04/14/15 06/05/16 Ascorbate Calcium [Vitamin C] 500 mg PO DAILY 06/05/15 06/05/16 Diclofenac Sodium [Voltaren] 2 gm TP QID PRN 06/05/15 06/05/16 Duloxetine [Cymbalta] 60 mg PO DAILY 06/05/15 06/05/16 Insulin DETEMIR [Levemir] 10 unit SQ HS 10/16/15 06/05/16 Loperamide [Imodium] 2 mg PO Q4HR PRN 10/16/15 06/05/16 Ethyl Chloride 1 appl TP AD PRN 05/09/16 06/05/16 GuaiFENesin Liq [Robitussin Liq] 100 mg PO Q4H PRN 05/09/16 06/05/16 Hydrocortisone [Proctozone-Hc] 1 appl RC QID PRN 05/09/16 06/05/16 LORazepam [Ativan] 0.5 mg PO HS 05/09/16 06/05/16 Pregabalin [Lyrica] 50 mg PO BID 05/09/16 06/05/16 Promethazine [Phenergan] 25 mg PO Q4H PRN 05/09/16 06/05/16 Citlalli-D Compound Cream 1 appl TP QID 05/09/16 06/05/16 Tramadol HCl [Ultram] 25 mg PO BID 05/09/16 06/05/16 Cyprohepatdine [Periactin] 4 mg PO HS 06/05/16 06/05/16 Hydroxyzine HCl 25 mg PO Q4H PRN 06/05/16 06/05/16 Previous Rx's Medication Instructions Recorded Acetaminophen [Tylenol] 650 mg PO Q6HR PRN #0 tablet 06/06/16 Carvedilol [Coreg] 3.125 mg PO BID #0 06/06/16 Allergies Allergy/AdvReac Type Severity Reaction Status Date / Time Iodinated Contrast Media - Allergy See Verified 04/03/16 19:37 Oral and Comments Penicillins Allergy See Verified 04/03/16 19:37 Comments povidone-iodine Allergy See Verified 04/03/16 19:37 [From Betadine] Comments soap [From Betadine] Allergy See Verified 04/03/16 19:37 Comments Sulfa (Sulfonamide Allergy See Verified 04/03/16 19:37 Antibiotics) Comments Dopamine AdvReac Drowsy Verified 05/10/16 11:17 All systems ED: reviewed and negative except as stated. Constitutional: Reports: fever Cardiovascular: Denies: chest pain, palpitations Respiratory: Denies: cough, dyspnea, wheezes Gastrointestinal: Denies: abdominal pain, nausea, vomiting Genitourinary: Denies: urgency, dysuria, frequency Musculoskeletal: Reports: back pain, arthralgia. Denies: neck pain, joint swelling Integumentary: Denies: rash Neurological: Reports: weakness (generalized). Denies: headache, numbness, paresthesias Endocrine: Reports: fatigue Past Medical History - Past Medical History Attestation: Yes The following information was validated with the patient. Source: patient, obtained from family Medical history: Reports: arthritis, asthma, atrial fibrillation, cardiomyopathy , CHF, COPD, coronary artery disease, diabetes, dialysis, GERD, hyperlipidemia, hypertension, osteoporosis, renal disease, venous stasis, valvular heart disease , other Surgical history: Reports: angioplasty/stent, hysterectomy, knee replacement, orthopedic, other, CHRISTY/BSO, other, vascular surgery Psychiatric history: Reports: anxiety, depression, other MAC ARTIST history: Reports: non-contributory - Social History Smoking Status: Never smoker Smokeless Tobacco Status: No Alcohol use: Reports: rarely Drug use: Reports: none Physical Exam - General Limitations: no limitations General appearance: alert, in no apparent distress - Head Head exam: atraumatic, normocephalic, normal inspection - Eye Eye exam: Present: normal appearance, PERRL, EOMI - ENT ENT exam: normal exam, normal oropharynx, mucous membranes moist - Neck Neck exam: Present: normal inspection, full ROM, trachea midline - Chest Chest inspection: Present: normal inspection, symmetric chest wall rise - Respiratory Respiratory exam: Present: wheezes (Wheezes and rhonchi in bilateral lower lobes ) - Cardiovascular Cardiovascular exam: Present: regular rate, normal rhythm, normal heart sounds - Abdominal Exam Abdominal exam: Present: soft, Non-Tender. Absent: tenderness, distention, guarding, rebound, rigidity - Extremities Exam Extremities exam: Present: normal inspection, full ROM, other (left arm fistula) . Absent: pedal edema - Neurological Exam Neurological exam: Present: alert, oriented X3, CN II-XII intact, other ( generalized weakness). Absent: motor sensory deficit - Psychiatric Psychiatric exam: Present: normal affect, normal mood Course Course Narrative: Temp she within normal limits. Heart rate 94. Patient currently 88% on room air, however she uses oxygen chronically, will be placed on 2 L nasal cannula. Patient wheezes and rhonchi in bilateral lower lobes, otherwise, the rest of the physical exam was fairly benign. Due to recent pneumonia, technically meeting SIRS criteria with elevated heart rate and temperature, will obtain sepsis workup. We will likely admit. Chest x-ray obtained due to cough, recent pneumonia, fever. Patient only given 500mL due to effusion. Current BP 90/50 but mentating well. 10:34 CBC shows mild anemia. Currently waiting on BMP. Troponin negative. Lactic acid within normal limits. UA shows signs of UTI. Chest x-ray shows unchanged right loculated pleural effusion with adjacent atalectasis. Stable central pulmonary findings suggesting interstitial pulmonary edema. No signs of pneumonia. 10:42 GFR near baseline. No major electrolyte abnormality. WIll admit for gen weakness, hypotension, UTI, anemia, fluid overload. Rocephin given. Another fluid bolus 500Ml given for hypotension in 80s/40s. Sitll mentating well. Chest X-Ray 07/26/16 09:34 IMPRESSION: Stable moderate loculated right lateral pleural effusion with adjacent atelectasis. Stable central pulmonary findings suggesting interstitial pulmonary edema. D/ / Leandro Moffett MD / Leandro Moffett MD Interpreting Provider: Leandro Moffett MD Vital Signs Temperature 98.9 F 07/26/16 09:28 Pulse Rate 94 07/26/16 09:28 Respiratory Rate 22 07/26/16 09:28 Blood Pressure 90/54 07/26/16 09:28 O2 Sat by Pulse Oximetry 91 07/26/16 09:28 Temperature 98.9 F 07/26/16 09:28 Pulse Rate 90 07/26/16 10:23 Respiratory Rate 20 07/26/16 10:23 Blood Pressure 91/70 07/26/16 10:23 O2 Sat by Pulse Oximetry 95 07/26/16 10:23 Oxygen Delivery Oxygen Delivery Nasal Cannula Weakness - MDM Narrative Medical decision making narrative: Temp she within normal limits. Heart rate 94. Patient currently 88% on room air, however she uses oxygen chronically, will be placed on 2 L nasal cannula. Patient wheezes and rhonchi in bilateral lower lobes, otherwise, the rest of the physical exam was fairly benign. Due to recent pneumonia, technically meeting SIRS criteria with elevated heart rate and temperature, will obtain sepsis workup. We will likely admit. Chest x-ray obtained due to cough, recent pneumonia, fever. Patient only given 500mL due to effusion. Current BP 90/50 but mentating well. 10:34 CBC shows mild anemia. Currently waiting on BMP. Troponin negative. Lactic acid within normal limits. UA shows signs of UTI. Chest x-ray shows unchanged right loculated pleural effusion with adjacent atalectasis. Stable central pulmonary findings suggesting interstitial pulmonary edema. No signs of pneumonia. 10:42 GFR near baseline. No major electrolyte abnormality. WIll admit for gen weakness, hypotension, UTI, anemia, fluid overload. Rocephin given. Another fluid bolus 500Ml given for hypotension in 80s/40s. Sitll mentating well. - Medical Records Medical records reviewed: Yes I reviewed the patient's medical records. - Lab Data Lab results reviewed: Yes I reviewed the patient's lab results. Result diagrams: 07/26/16 10:01 07/26/16 10:01 Lab Results 07/26/16 07/26/16 07/26/16 Range/Units 10:01 10:01 10:01 WBC 8.3 (4.3-11.1) K/mcL RBC 3.30 L (3.82-4.97) M/mcL Hgb 9.7 L (11.5-15.4) g/dL Hct 31.6 L (35.3-44.9) % MCV 95.8 (83.0-100.0) fL MCH 29.4 (28.0-33.3) pg MCHC 30.7 L (31.6-35.5) g/dL RDW 15.9 H (11.5-14.5) % Plt Count 188 (140-400) K/mcL MPV 9.6 (9.4-12.4) fL Immature Gran % 0.6 (0-4) % Seg Neutrophils % 67.3 % Lymphocytes % 14.9 % Monocytes % 12.1 % Eosinophils % 4.7 % Basophils % 0.4 % Neutrophils # 5.6 (1.6-8.9) K/mcL Lymphocytes # 1.2 (0.6-4.6) K/mcL Monocytes # 1.0 (0.0-1.3) K/mcL Eosinophils # 0.4 (0.0-0.6) K/mcL Basophils # 0.0 (0.0-0.2) K/mcL PT (9.4-12.1) Seconds INR APTT (26.0-36.0) Seconds Sodium (136-145) mEq/L Potassium (3.5-4.5) mEq/L Chloride (98-109) mEq/L Carbon Dioxide (19-29) mEq/L BUN (7-20) mg/dL Creatinine (0.57-1.11) mg/dL Est GFR ( Amer) (> 60) Est GFR (Non-Af Amer) (> 60) BUN/Creatinine Ratio (6-26) Glucose (70-99) mg/dL Calculated Osmolality (280-300) Lactic Acid 1.5 (0.5-2.2) mmol/L Calcium (8.6-10.8) mg/dL Phosphorus (2.3-4.7) mg/dL Magnesium (1.6-2.6) mg/dL Total Bilirubin (0.2-1.2) mg/dL Direct Bilirubin (0.0-0.5) mg/dL Indirect Bilirubin (0.0-1.2) mg/dL AST (5-34) Units/L ALT (0-55) Units/L Alkaline Phosphatase (38-126) Units/L Troponin I 0.03 (0-0.03) ng/mL Serum Total Protein (6.0-8.3) g/dL Albumin (3.5-5.0) g/dL Globulin (2.4-3.5) g/dL Albumin/Globulin Ratio (1.1-2.2) Ur Specimen Adequacy Urine Color (Yellow) Urine Clarity (Clear) Urine pH (5.0-8.0) pH Units Ur Specific [place] (1.010-1.025) Urine Protein (Neg-Trace) mg/dL Urine Glucose (UA) (Normal) mg/dL Urine Ketones (Negative) mg/dL Urine Blood (Negative) Urine Nitrite (Negative) Urine Bilirubin (Negative) Urine Urobilinogen (Normal) mg/dL Ur Leukocyte Esterase (Negative) Urine Microscopic RBC (0-3) per hpf Urine Microscopic WBC (0-3) per hpf Ur Squamous Epith Cells (None-Few) per lpf Calcium Oxalate Crystal Urine Bacteria (None-Few) per hpf Hyaline Casts (None-Few) per lpf Ur Culture Indicated? (NO) 07/26/16 07/26/16 07/26/16 Range/Units 10:01 10:01 10:10 WBC (4.3-11.1) K/mcL RBC (3.82-4.97) M/mcL Hgb (11.5-15.4) g/dL Hct (35.3-44.9) % MCV (83.0-100.0) fL MCH (28.0-33.3) pg MCHC (31.6-35.5) g/dL RDW (11.5-14.5) % Plt Count (140-400) K/mcL MPV (9.4-12.4) fL Immature Gran % (0-4) % Seg Neutrophils % % Lymphocytes % % Monocytes % % Eosinophils % % Basophils % % Neutrophils # (1.6-8.9) K/mcL Lymphocytes # (0.6-4.6) K/mcL Monocytes # (0.0-1.3) K/mcL Eosinophils # (0.0-0.6) K/mcL Basophils # (0.0-0.2) K/mcL PT 12.6 H (9.4-12.1) Seconds INR 1.2 APTT 30.8 (26.0-36.0) Seconds Sodium 139 (136-145) mEq/L Potassium 3.6 (3.5-4.5) mEq/L Chloride 98 (98-109) mEq/L Carbon Dioxide 26 (19-29) mEq/L BUN 24 H (7-20) mg/dL Creatinine 4.18 H (0.57-1.11) mg/dL Est GFR ( Amer) 12 L (> 60) Est GFR (Non-Af Amer) 10 L (> 60) BUN/Creatinine Ratio 6 (6-26) Glucose 86 (70-99) mg/dL Calculated Osmolality 291 (280-300) Lactic Acid (0.5-2.2) mmol/L Calcium 9.4 (8.6-10.8) mg/dL Phosphorus 2.7 (2.3-4.7) mg/dL Magnesium 1.5 L (1.6-2.6) mg/dL Total Bilirubin 0.6 (0.2-1.2) mg/dL Direct Bilirubin 0.2 (0.0-0.5) mg/dL Indirect Bilirubin 0.4 (0.0-1.2) mg/dL AST 10 (5-34) Units/L ALT < 6 (0-55) Units/L Alkaline Phosphatase 149 H (38-126) Units/L Troponin I (0-0.03) ng/mL Serum Total Protein 7.0 (6.0-8.3) g/dL Albumin 2.3 L (3.5-5.0) g/dL Globulin 4.7 H (2.4-3.5) g/dL Albumin/Globulin Ratio 0.5 L (1.1-2.2) Ur Specimen Adequacy See below A Urine Color Yellow (Yellow) Urine Clarity Cloudy A (Clear) Urine pH 8.5 H (5.0-8.0) pH Units Ur Specific [place] 1.020 (1.010-1.025) Urine Protein >=300 H (Neg-Trace) mg/dL Urine Glucose (UA) Normal (Normal) mg/dL Urine Ketones Negative (Negative) mg/dL Urine Blood Large H (Negative) Urine Nitrite Negative (Negative) Urine Bilirubin Negative (Negative) Urine Urobilinogen Normal (Normal) mg/dL Ur Leukocyte Esterase Large H (Negative) Urine Microscopic RBC 5-15 H (0-3) per hpf Urine Microscopic WBC 5-15 H (0-3) per hpf Ur Squamous Epith Cells Few (None-Few) per lpf Calcium Oxalate Crystal Present Urine Bacteria Many H (None-Few) per hpf Hyaline Casts Few (None-Few) per lpf Ur Culture Indicated? YES A (NO) - Radiology Data Radiology results reviewed: Yes I reviewed the patient's radiology results. Chest X-Ray 07/26/16 09:34 IMPRESSION: Stable moderate loculated right lateral pleural effusion with adjacent atelectasis. Stable central pulmonary findings suggesting interstitial pulmonary edema. D/ / 07/26/2016 10:40:27 Leandro Moffett MD / Veronique Yao Interpreting Provider: Leandro Moffett MD - EKG Data EKG attestation: Yes I reviewed and interpreted this EKG. EKG results narrative: 07/26/2016 at 09:47. Normal sinus rhythm. Rate 91. WA 165. QRS 114. QTc 428. One QRS, Q waves in lead V1 that is unchanged from previous EKG. Poor R- wave progression that is unchanged from previous EKG. No acute ST elevation or depression. Radha - Radha Situation: Demographics, MOA Background: Presenting Complaint, Relevant PMH, Meds, & Allergies Assessment: Vital Signs, Course and respsone to treatment, Exam Concerns, Patient/Family Expectation, Pertinant Lab Results, Outstanding Labs Recommendation: Barrier(s) to disposition, Recommendation based on pending studies, treatments, or consults Radha Report Given to: Dr. Lázaro Garcia Repor Time: 10:54
[2016-07-26] MEDS ORDERED: 0.9 % Sodium Chloride 500 ML IVC ONE ×3 (09:43→13:42)
[2016-07-26] MEDS ORDERED: 0.9 % Sodium Chloride 1,000 ML IVC SCH (09:45)
[2016-07-26 10:09] LABS: Basophils % 0.4 %; Eosinophils # 0.4 K/mcL (0.0-0.6); Eosinophils % 4.7 %; Hematocrit 31.6 % (35.3-44.9); Hemoglobin 9.7 g/dL (11.5-15.4); Immature Granulocytes % 0.6 % (0-4); Lymphocytes # 1.2 K/mcL (0.6-4.6); Lymphocytes % 14.9 %; Mean Corpuscular HGB Conc 30.7 g/dL (31.6-35.5); Mean Corpuscular Hemoglobin 29.4 pg (28.0-33.3); Mean Corpuscular Volume 95.8 fL (83.0-100.0); Mean Platelet Volume 9.6 fL (9.4-12.4); Monocytes % 12.1 %; Neutrophils # 5.6 K/mcL (1.6-8.9); Platelet Count 188 K/mcL (140-400); Red Cell Distribution Width 15.9 % (11.5-14.5); Segmented Neutrophils % 67.3 %
[2016-07-26 10:15] LABS: INR 1.2; Prothrombin Time 12.6 Seconds (9.4-12.1)
[2016-07-26 10:18] LABS: Activated Partial Thrombo Time 30.8 Seconds (26.0-36.0)
[2016-07-26 10:30] LABS: Bilirubin,Urine Negative (Negative); Blood,Urine Large (Negative); Clarity,Urine Cloudy (Clear); Color,Urine Yellow (Yellow); Glucose,Urine (UA) Normal (Normal); Ketones,Urine Negative (Negative); Leukocyte Esterase,Urine Large (Negative); Nitrite,Urine Negative (Negative); PH,Urine 8.5 pH Units (5.0-8.0); Protein,Urine >=300 mg/dL (Neg-Trace); Urobilinogen,Urine Normal (Normal)
[2016-07-26 10:34] LABS: Squamous Epithelial Cell,Urine Few per lpf (None-Few)
[2016-07-26 10:35] LABS: Albumin 2.3 g/dL (3.5-5.0); Albumin/Globulin Ratio 0.5 (1.1-2.2); Alkaline Phosphatase 149 Units/L (38-126); Aspartate Amino Transferase 10 Units/L (5-34); BUN/Creatinine Ratio 6 (6-26); Bilirubin,Direct 0.2 mg/dL (0.0-0.5); Bilirubin,Indirect 0.4 mg/dL (0.0-1.2); Bilirubin,Total 0.6 mg/dL (0.2-1.2); Blood Urea Nitrogen 24 mg/dL (7-20); Calcium 9.4 mg/dL (8.6-10.8); Carbon Dioxide 26 mEq/L (19-29); Chloride 98 mEq/L (98-109); Globulin 4.7 g/dL (2.4-3.5); Glucose 86 mg/dL (70-99); Magnesium 1.5 mg/dL (1.6-2.6); Osmolality,Calculated 291 (280-300); Phosphorous 2.7 mg/dL (2.3-4.7); Potassium 3.6 mEq/L (3.5-4.5); Sodium 139 mEq/L (136-145); eGFR For African Americans 12 (> 60); eGFR For Non-African Americans 10 (> 60)
[2016-07-26 10:36] LABS: Alanine Aminotransferase < 6 Units/L (0-55)
[2016-07-26 10:36] LABS: Bacteria,Urine Many per hpf (None-Few); Calcium Oxalate Crystals,Urine Present
[2016-07-26 10:37] LABS: Hyaline Casts,Urine Few per lpf (None-Few)
[2016-07-26] MEDS ORDERED: Levofloxacin 750 MG/150 ML 750 MG/150 ML BAG IVPB ONE (10:53)
[2016-07-26] MEDS ORDERED: Naloxone 0.4 MG/ML INJ IVP PRN (11:29)
[2016-07-26] MEDS ORDERED: Acetaminophen 325 MG TABLET PO PRN (11:34)
--- NOTE | 2016-07-26 11:49 | Internal Med History&Physical ---
Date of Encounter: 07/26/16 Time of Encounter: 11:20 Assessment and Plan (1) Hypotension Current visit: Yes Status: Acute Patient with hypotension. Likely related to her chronic dialysis and antihypertensive use. Patient given IV fluids in the ER with improvement in blood pressure. Currently patient is on carvedilol 3.125 mg twice daily. We will hold this medication for now and adjust accordingly. Lactate levels are normal. No signs of sepsis. Monitor vital signs closely. We will observe the patient in hospital overnight. The patient's urine shows 5-15 WBC per high- power field but as she is a dialysis patient this is likely normal for her. I do not suspect a urinary tract infection at this time. Patient does not have any dysuria. Qualifiers: Hypotension type: hemodialysis-associated hypotension Qualified Code(s): I95.3 - Hypotension of hemodialysis (2) Anemia in chronic kidney disease (CKD) Current visit: Yes Status: Chronic Hemoglobin is 9.7 and at baseline. (3) Diabetic foot ulcer Current visit: Yes Status: Chronic Patient with chronic foot ulcer from diabetes. Continue local wound care. Qualifiers: Diabetic foot ulcer location: unspecified part of foot Diabetes mellitus type: due to underlying condition Laterality: left Non-pressure ulcer stage : unspecified non-pressure ulcer stage Qualified Code(s): E08.621 - Diabetes mellitus due to underlying condition with foot ulcer; L97.529 - Non-pressure chronic ulcer of other part of left foot with unspecified severity (4) DM (diabetes mellitus), type 2 with renal complications Current visit: Yes Status: Chronic Monitor blood sugars. Sliding scale insulin. Diabetic diet Qualifiers: Diabetes mellitus complication detail: with chronic kidney disease Diabetes mellitus detention insulin use: with detention use Chronic kidney disease stage: on chronic dialysis Qualified Code(s): E11.22 - Type 2 diabetes mellitus with diabetic chronic kidney disease; N18.6 - End stage renal disease; Z79.4 - ferry terminal agent (current) use of insulin; Z99.2 - Dependence on renal dialysis (5) ESRD (end stage renal disease) Current visit: Yes Status: Chronic Discussed with nephrology who will follow the patient for dialysis management. Patient gets dialyzed on Saturday. (6) Generalized weakness Current visit: Yes Status: Acute Will consult physical therapy for evaluation. (7) Pleural effusion Current visit: Yes Status: Chronic Loculated pleural effusion on the right side. Unchanged since prior x-rays. Continue follow-up with pulmonology as outpatient. Internal Medicine - H&P: HPI Chief complaint: Low blood pressure Admitted From: Emergency Dept Plans for Post Hospital Care: Home History of present illness: Ms. Crowder is a 86 year old female patient with a history of end-stage renal disease on hemodialysis, type 2 diabetes mellitus, hypertension, atrial fibrillation, cardiomyopathy and coronary artery disease was brought in to the ER from the pulmonology office where she was having a clinic appointment. She was sent over because her blood pressure was low. According to the ED records and blood pressure was in the 70s systolic and the land surveyor office. By the time she came here her blood pressure improved to 90 systolic. She was with family members who reported that she was having generalized weakness. The patient however feels fine and denies any new symptoms. She is currently being evaluated for loculated pleural effusion to pulmonology. Chest x-ray done here did not show any change in size of the pleural effusion. Patient complains of cough without any sputum production. She was dialyzed yesterday without any issues. Patient had been admitted here last month with altered mental status and generalized weakness. At that time her blood pressure medications were changed and her diltiazem was stopped. Currently she is on carvedilol 3.125 twice daily. During her last hospitalization she presented with hypotension and when the blood pressure improved, she did have multiple episodes of blood pressure in the 90s systolic intermittently. Currently the patient denies any chest pain or palpitations. Past Med Surg Social Fam HX - Past Medical History Attestation: Yes The following information was validated with the patient. Source: patient, old records reviewed Medical history: arthritis, asthma, atrial fibrillation, cardiomyopathy, CHF, COPD, coronary artery disease, diabetes, dialysis, GERD, hyperlipidemia, hypertension, osteoporosis, renal disease, venous stasis, valvular heart disease , other Psychiatric history: anxiety, depression, other - Past Surgical History Surgical History: angioplasty/stent, hysterectomy, knee replacement, orthopedic , other, CHRISTY/BSO, other, vascular surgery - Social History Smoking Status: Never smoker Smokeless Tobacco Status: No Alcohol use: rarely Drug use: none - Family History Son Living Status: Still Living Hx Family Cardiac Disorders: Yes (heart problems) Father Living Status: Hx Family Cardiac Disorders: Yes Hx Family Respiratory Disorders: No Hx Family Cancer: Yes Hx Family GI Disorders: No Hx Family Endocrine Disorder: Yes (DM) Hx Family Neuromuscular Disorders: No Hx Family Neurologic Disorders: Yes Hx Family HEENT Disorders: No Hx Family Autoimmune Disorders: No Mother Living Status: Hx Family Cardiac Disorders: No Hx Family Respiratory Disorders: No Hx Family Cancer: No Hx Family GI Disorders: No Hx Family Endocrine Disorder: No Hx Family Neuromuscular Disorders: No Hx Family Neurologic Disorders: No Hx Family HEENT Disorders: No Hx Family Autoimmune Disorders: No Internal Medicine - H&P: Meds Acetaminophen [Tylenol] 650 mg PO Q4H PRN 04/14/15 [History] Allopurinol [Zyloprim 100 MG] 100 mg PO DAILY 04/14/15 [History] Aspirin 81 mg PO DAILY 04/14/15 [History] Clopidogrel [Plavix] 75 mg PO DAILY 04/14/15 [History] Docusate Sodium [Colace] 100 mg PO DAILY 04/14/15 [History] Insulin LISPRO [HumaLOG] 2 - 12 units SQ TIDAC 04/14/15 [History] Ipratropium/Albuterol Neb [Duoneb] 3 ml IH Q6HR 04/14/15 [History] Omeprazole [PriLOSEC] 20 mg PO DAILY 04/14/15 [History] Sevelamer [Renvela] 800 mg PO TIDWM 04/14/15 [History] Ascorbate Calcium [Vitamin C] 500 mg PO DAILY 06/05/15 [History] Diclofenac Sodium [Voltaren] 2 gm TP QID PRN 06/05/15 [History] Duloxetine [Cymbalta] 60 mg PO DAILY 06/05/15 [History] Insulin DETEMIR [Levemir] 10 unit SQ HS 10/16/15 [History] Loperamide [Imodium] 2 mg PO Q4HR PRN 10/16/15 [History] Ethyl Chloride 1 appl TP AD PRN 05/09/16 [History] GuaiFENesin Liq [Robitussin Liq] 100 mg PO Q4H PRN 05/09/16 [History] Hydrocortisone [Proctozone-Hc] 1 appl RC QID PRN 05/09/16 [History] LORazepam [Ativan] 0.5 mg PO HS 05/09/16 [History] Pregabalin [Lyrica] 50 mg PO BID 05/09/16 [History] Promethazine [Phenergan] 25 mg PO Q4H PRN 05/09/16 [History] Citlalli-D Compound Cream 1 appl TP QID 05/09/16 [History] Tramadol HCl [Ultram] 25 mg PO BID 05/09/16 [History] Cyprohepatdine [Periactin] 4 mg PO HS 06/05/16 [History] Hydroxyzine HCl 25 mg PO Q4H PRN 06/05/16 [History] Acetaminophen [Tylenol] 650 mg PO Q6HR PRN #0 tablet 06/06/16 [Rx] Carvedilol [Coreg] 3.125 mg PO BID #0 06/06/16 [Rx] Allergies Iodinated Contrast Media - Oral and Allergy (Verified 04/03/16 19:37) See Comments UNABLE TO CONFIRM REACTIONS- ALL ALLERGIES OBTAINED THROUGH [facility] LAST APPT. Penicillins Allergy (Verified 04/03/16 19:37) See Comments UNABLE TO CONFIRM REACTIONS- ALL ALLERGIES OBTAINED THROUGH [facility] LAST APPT. povidone-iodine [From Betadine] Allergy (Verified 04/03/16 19:37) See Comments UNABLE TO CONFIRM REACTIONS- ALL ALLERGIES OBTAINED THROUGH [facility] LAST APPT. soap [From Betadine] Allergy (Verified 04/03/16 19:37) See Comments UNABLE TO CONFIRM REACTIONS- ALL ALLERGIES OBTAINED THROUGH [facility] LAST APPT. Sulfa (Sulfonamide Antibiotics) Allergy (Verified 04/03/16 19:37) See Comments UNABLE TO CONFIRM REACTIONS- ALL ALLERGIES OBTAINED THROUGH [facility] LAST APPT. Dopamine Adverse Reaction (Verified 05/10/16 11:17) Drowsy Patient has nausea and vomitting, drowsiness, and confusion. All Systems PM: A 10-system review of systems was performed and is negative for pertinent findings except as documented above in the HPI. - Constitutional Constitutional: weakness, no chills, no fever(s), no night sweats - EENT Eyes: no change in vision, no discharge, no pain, no photophobia Ears: no ear discharge, no ear pain, no tinnitus Nose, mouth and throat: no dysphagia, no nasal discharge, no neck pain, no sore throat - Cardiovascular Cardiovascular ROS IM: no chest pain, no diaphoresis, no dyspnea, no lightheadedness, no palpitations, no syncope - Respiratory Respiratory: cough, no dyspnea, no wheezing, no excessive phlegm production - Gastrointestinal Gastrointestinal: no abdominal pain, no diarrhea, no hematemesis, no hematochezia, no melena, no nausea, no vomiting - Genitourinary Genitourinary: no change in urinary stream, no dysuria, no flank pain, no hematuria - Musculoskeletal Musculoskeletal ROS IM: no numbness, no tingling - Integumentary Integumentary IM: no rash, no unusual bruising - Neurological Neurological ROS: no confusion, no convulsions, no focal weakness, no numbness, no tingling, no tremor(s) - Hematologic/Lymphatic Hematologic/Lymphatic: no easy bruising - Constitutional Vitals: Temp Pulse Resp BP Pulse Ox 98.9 F 85 20 102/53 93 07/26/16 09:28 07/26/16 11:00 07/26/16 11:00 07/26/16 11:00 07/26/16 11:00 General appearance: Present: cooperative, mild distress, A&O X 3, answers questions appropriately - Neck Neck exam general surgery: Present: supple, trachea midline. Absent: lymphadenopathy - Respiratory Respiratory exam: Present: decreased breath sounds (right ). Absent: accessory muscle use, rales, rhonchi, wheezes - Cardiovascular Cardiovascular exam: Present: RRR, +S1, +S2. Absent: diastolic murmur, gallop, rubs, systolic murmur - GI/Abdominal GI/Abdominal exam: Present: normal bowel sounds, soft, no peritoneal signs. Absent: distended, tenderness - Extremities Exam Extremities exam: Present: warm, radial pulses palpable and symetrical. Absent : calf tenderness, cyanotic, pedal edema Additional comments: Both lower extremities are currently bandaged around the ankle - Neurological Exam Neurological exam: Present: alert, oriented X3, no focal deficits. Absent: facial droop, speech deficit - Skin Skin exam: Present: dry, intact Internal Med - H&P Results - Labs CBC & Chem 7: 07/26/16 10:01 07/26/16 10:01 - Impressions Impressions Chest X-Ray 07/26/16 09:34 IMPRESSION: Stable moderate loculated right lateral pleural effusion with adjacent atelectasis. Stable central pulmonary findings suggesting interstitial pulmonary edema. D/ / 07/26/2016 10:40:27 Leandro Moffett MD / Veronique Yao Interpreting Provider: Leandro Moffett MD - Attending Attestation This document has been at least partially created by [employer] recognition technology by Dr. Sesay. Errors in grammar, wording or other phrases may exist. If errors are found after the documentation is signed, they will be addressed individually in the addendum section of this document when appropriate.
[2016-07-26] MEDS ORDERED: D5% in Water 1,000 ML IVC PRN (12:05)
[2016-07-26] MEDS ORDERED: Dextrose Gel 15 GM PO PRN ×2 (12:05)
[2016-07-26] MEDS ORDERED: *HR* Dextrose 50 % in Water (Syg) 50 ML SYRINGE IVP PRN (12:05)
[2016-07-26] MEDS: Insulin LISPRO 300 UNITS/3 ML VIAL SQ SCH (17:36)
[2016-07-26] MEDS: *HR* Heparin 5,000 UNIT/ML VIAL SQ SCH (19:32)
--- NOTE | 2016-07-26 19:45 | Electrocardiograph Report ---
[place] [address] Test Date: 2016-07-26 Pat Name: Suzan Crowedr Department: 102 Room: 2A13 Gender: F Hand Nailer: Yaneli : 1930 Requested By: Volodymyr Beaulieu Order Number: [id number] Reading MD: Robert Srivastava MD Measurements Intervals [place] Rate: 91 P: 12 KS: 165 QRS: -56 QRSD: 114 T: 62 QT: 379 QTc: 428 Interpretive Statements SINUS RHYTHM MARKED LEFT AXIS DEVIATION Poor R wave progression Electronically Signed On 07-26-2016 19:44:03 EDT by Robert Srivastava MD
[2016-07-26] MEDS ORDERED: Insulin LISPRO 300 UNITS/3 ML VIAL SQ SCH (21:00)
[2016-07-26] MEDS ORDERED: traMADol 50 MG TABLET PO PRN (22:00)
[2016-07-26] MEDS ORDERED: *HR* LORazepam 0.5 MG TABLET PO PRN (22:03)
[2016-07-27 04:49] LABS: Basophils % 0.4 %; Eosinophils # 0.6 K/mcL (0.0-0.6); Eosinophils % 7.8 %; Hemoglobin 9.7 g/dL (11.5-15.4); Immature Granulocytes % 0.9 % (0-4); Lymphocytes # 1.4 K/mcL (0.6-4.6); Lymphocytes % 20.5 %; Mean Corpuscular HGB Conc 30.3 g/dL (31.6-35.5); Mean Corpuscular Hemoglobin 29.6 pg (28.0-33.3); Mean Corpuscular Volume 97.6 fL (83.0-100.0); Mean Platelet Volume 10.3 fL (9.4-12.4); Monocytes # 0.9 K/mcL (0.0-1.3); Monocytes % 12.5 %; Neutrophils # 4.1 K/mcL (1.6-8.9); Platelet Count 171 K/mcL (140-400); Red Blood Count 3.28 M/mcL (3.82-4.97); Red Cell Distribution Width 16.1 % (11.5-14.5); Segmented Neutrophils % 57.9 %
[2016-07-27] MEDS: *HR* Heparin 5,000 UNIT/ML VIAL SQ SCH (05:56)
[2016-07-27 07:01] LABS: Calcium 9.3 mg/dL (8.6-10.8); Potassium 3.8 mEq/L (3.5-4.5)
[2016-07-27] MEDS: Insulin LISPRO 300 UNITS/3 ML VIAL SQ SCH ×3 (08:45→17:18)
--- NOTE | 2016-07-27 09:03 | Nephrology Consult Note ---
Date of Encounter: 08/08/16 Time of Encounter: 09:01 Assessment and Plan (1) ESRD (end stage renal disease) on dialysis Status: Chronic Patient has end-stage renal disease. She is hemodynamically stable. Blood pressure is at her usual levels for her. She will undergo dialysis today. She is on Aranesp for her anemia. (2) Anemia in CKD (chronic kidney disease) Status: Acute (3) Hypotension Status: Acute Qualifiers: Hypotension type: unspecified hypotension type Qualified Code(s): I95.9 - Hypotension, unspecified (4) DM (diabetes mellitus), type 2 with renal complications Status: Chronic Qualifiers: Diabetes mellitus complication detail: with chronic kidney disease Diabetes mellitus fci insulin use: with terminal operator use Chronic kidney disease stage: on chronic dialysis Qualified Code(s): E11.22 - Type 2 diabetes mellitus with diabetic chronic kidney disease; N18.6 - End stage renal disease; Z79.4 - FPC (current) use of insulin; Z99.2 - Dependence on renal dialysis History of Present Illness - History of Present Illness This is an 86-year-old female with end-stage renal disease. She receives dialysis every Saturday and . Patient was admitted after being seen in the pulmonary department as an outpatient. She was noted to have a blood pressure of 70 subsequently she was sent to the ER. She received some IV fluids and was admitted to the hospital. Patient was seen pulmonary in consultation because of a chronic right pleural effusion. Patient says overall she has been feeling well. The only antihypertensive medication she takes is Coreg 3.125 mg twice a day. She is however on other sedatives as well as a benzodiazepine at the long term. Currently she is alert and oriented. Her blood pressure typically runs in the 90s to the low 100s. Chest x-ray confirms right pleural effusion and atelectasis. Past Med Surg Social Fam HX - Past Medical History Medical history: arthritis, asthma, atrial fibrillation, cardiomyopathy, CHF, COPD, coronary artery disease, diabetes, dialysis, GERD, hyperlipidemia, hypertension, osteoporosis, renal disease, venous stasis, valvular heart disease , other Psychiatric history: anxiety, depression, other - Past Surgical History Surgical History: angioplasty/stent, hysterectomy, knee replacement, orthopedic , other, CHRISTY/BSO, other, vascular surgery - Social History Smoking Status: Never smoker Smokeless Tobacco Status: No Alcohol use: rarely Drug use: none - Family History Son Living Status: Still Living Hx Family Cardiac Disorders: Yes (heart problems) Father Living Status: Hx Family Cardiac Disorders: Yes Hx Family Respiratory Disorders: No Hx Family Cancer: Yes Hx Family GI Disorders: No Hx Family Endocrine Disorder: Yes (DM) Hx Family Neuromuscular Disorders: No Hx Family Neurologic Disorders: Yes Hx Family HEENT Disorders: No Hx Family Autoimmune Disorders: No Mother Living Status: Hx Family Cardiac Disorders: No Hx Family Respiratory Disorders: No Hx Family Cancer: No Hx Family GI Disorders: No Hx Family Endocrine Disorder: No Hx Family Neuromuscular Disorders: No Hx Family Neurologic Disorders: No Hx Family HEENT Disorders: No Hx Family Autoimmune Disorders: No Medications and Allergies Allopurinol [Zyloprim 100 MG] 100 mg PO DAILY 04/14/15 [History] Aspirin 81 mg PO DAILY 04/14/15 [History] Clopidogrel [Plavix] 75 mg PO DAILY 04/14/15 [History] Docusate Sodium [Colace] 100 mg PO DAILY 04/14/15 [History] Insulin LISPRO [HumaLOG] 2 - 12 units SQ TIDAC 04/14/15 [History] Ipratropium/Albuterol Neb [Duoneb] 3 ml IH Q6HR 04/14/15 [History] Omeprazole [PriLOSEC] 20 mg PO DAILY 04/14/15 [History] Sevelamer [Renvela] 800 mg PO TIDWM 04/14/15 [History] Ascorbate Calcium [Vitamin C] 500 mg PO DAILY 06/05/15 [History] Diclofenac Sodium [Voltaren] 2 gm TP QID PRN 06/05/15 [History] Duloxetine [Cymbalta] 60 mg PO DAILY 06/05/15 [History] Insulin DETEMIR [Levemir] 10 unit SQ HS 10/16/15 [History] Loperamide [Imodium] 2 mg PO Q4HR PRN 10/16/15 [History] Ethyl Chloride 1 appl TP AD PRN 05/09/16 [History] GuaiFENesin Liq [Robitussin Liq] 100 mg PO Q4H PRN 05/09/16 [History] Hydrocortisone [Proctozone-Hc] 1 appl RC QID PRN 05/09/16 [History] Pregabalin [Lyrica] 50 mg PO BID 05/09/16 [History] Promethazine [Phenergan] 25 mg PO Q4H PRN 05/09/16 [History] Citlalli-D Compound Cream 1 appl TP QID 05/09/16 [History] Tramadol HCl [Ultram] 25 mg PO BID 05/09/16 [History] Cyprohepatdine [Periactin] 4 mg PO HS 06/05/16 [History] Hydroxyzine HCl 25 mg PO Q4H PRN 06/05/16 [History] Acetaminophen [Tylenol] 650 mg PO Q6HR PRN #0 tablet 06/06/16 [Rx] LORazepam [Ativan] 0.5 mg PO HS PRN #20 tablet 07/27/16 [Rx] Allergies Iodinated Contrast Media - Oral and Allergy (Verified 04/03/16 19:37) See Comments UNABLE TO CONFIRM REACTIONS- ALL ALLERGIES OBTAINED THROUGH [facility] LAST APPT. Penicillins Allergy (Verified 04/03/16 19:37) See Comments UNABLE TO CONFIRM REACTIONS- ALL ALLERGIES OBTAINED THROUGH [facility] LAST APPT. povidone-iodine [From Betadine] Allergy (Verified 04/03/16 19:37) See Comments UNABLE TO CONFIRM REACTIONS- ALL ALLERGIES OBTAINED THROUGH [facility] LAST APPT. soap [From Betadine] Allergy (Verified 04/03/16 19:37) See Comments UNABLE TO CONFIRM REACTIONS- ALL ALLERGIES OBTAINED THROUGH [facility] LAST APPT. Sulfa (Sulfonamide Antibiotics) Allergy (Verified 04/03/16 19:37) See Comments UNABLE TO CONFIRM REACTIONS- ALL ALLERGIES OBTAINED THROUGH [facility] LAST APPT. Dopamine Adverse Reaction (Verified 05/10/16 11:17) Drowsy Patient has nausea and vomitting, drowsiness, and confusion. Review of Systems Constitutional: as per HPI Nose, mouth and throat: no dizziness, no headache(s) Cardiovascular: dyspnea on exertion, edema Respiratory: cough, dyspnea on exertion Gastrointestinal: no abdominal pain, no change in bowel habits Musculoskeletal: no muscle weakness, no numbness Neurological: as per HPI Psychiatric: no depression, no difficulty concentrating Endocrine: as per HPI Hematologic/Lymphatic: no easy bruising, no lymphadenopathy Exam - Vital Signs Vital signs: Initial Vital Signs Temp Pulse Resp BP Pulse Ox 98.9 F 94 22 90/54 91 07/26/16 09:28 07/26/16 09:28 07/26/16 09:28 07/26/16 09:28 07/26/16 09:28 Vital Signs - Last 8 Hours Temp Pulse Resp BP Pulse Ox 07/27/16 08:10 98.1 F 88 18 82/53 92 07/27/16 04:46 98.3 F 86 17 114/71 93 Intake and Output 07/26/16 07/27/16 07/27/16 23:59 07:59 15:59 Intake Total 120 / 120 Balance 120 / 120 Intake: Oral 120 / 120 Other: Weight 91.172 kg Blood Glucose* 155 105 Patient Weight 07/27/16 23:59 Weight 91.172 kg - General Appearance Exam: Patient is alert and oriented. Blood pressure 114/71. Temperature 97.5. Patient is in no acute distress. Lungs mange breath sounds otherwise clear. Heart irregular rate and rhythm. Abdomen is benign. Bowel sounds are present. No masses or organomegaly or tenderness. Lower HMB show minimal lower chimney swelling. There is a functioning AV fistula in the left arm. Results - Lab Results 07/27/16 04:04 07/27/16 05:55 Most recent lab results Calcium 9.3 mg/dL (8.6-10.8) 07/27/16 05:55 Phosphorus 2.7 mg/dL (2.3-4.7) 07/26/16 10:01 Magnesium 1.5 mg/dL (1.6-2.6) L 07/26/16 10:01 Consult Discharge Plan - Plan Instructions: Diabetic Foot Care (DC), Diabetes Mellitus Type 2 in Adults (DC) , Anemia (GEN) Additional Instructions: Please follow up with your primary care physician and java programmer within one week after your discharge from the hospital. Due to your low blood pressure readings, your home dose of Carvedilol is discontinued. Your primary java programmer will restart this medication as needed during your next follow up appointment. Resume all other home medications as prescribed by your primary care physician. Referrals: NO,PCP [Primary Care Provider] - Prescriptions: LORazepam [Ativan] 0.5 mg PO HS PRN #20 tablet PRN Reason: anxiety/agitation
[2016-07-27] MEDS ORDERED: 0.9 % Sodium Chloride 250 ML IVC PRN (09:11)
--- NOTE | 2016-07-27 10:20 | Discharge Summary ---
Date of Encounter: 07/27/16 Time of Encounter: 09:15 - Discharge Diagnosis (1) ESRD (end stage renal disease) on dialysis Priority: Secondary Status: Chronic (2) DVT prophylaxis Priority: Secondary Status: Acute (3) Hypotension Priority: Primary Status: Chronic Comments: as per primary almond pan finisher, patient has history of chronic hypotension and is asymptomatic will discontinue carvedilol. patient currently asymptomatic Qualifiers: Hypotension type: unspecified hypotension type Qualified Code(s): I95.9 - Hypotension, unspecified (4) Anemia Priority: Secondary Status: Chronic Qualifiers: Anemia type: unspecified type Qualified Code(s): D64.9 - Anemia, unspecified - Discharge Medications Prescriptions: LORazepam [Ativan] 0.5 mg PO HS PRN #20 tablet PRN Reason: anxiety/agitation Home Medications: Allopurinol [Zyloprim 100 MG] 100 mg PO DAILY 04/14/15 [History] Aspirin 81 mg PO DAILY 04/14/15 [History] Clopidogrel [Plavix] 75 mg PO DAILY 04/14/15 [History] Docusate Sodium [Colace] 100 mg PO DAILY 04/14/15 [History] Insulin LISPRO [HumaLOG] 2 - 12 units SQ TIDAC 04/14/15 [History] Ipratropium/Albuterol Neb [Duoneb] 3 ml IH Q6HR 04/14/15 [History] Omeprazole [PriLOSEC] 20 mg PO DAILY 04/14/15 [History] Sevelamer [Renvela] 800 mg PO TIDWM 04/14/15 [History] Ascorbate Calcium [Vitamin C] 500 mg PO DAILY 06/05/15 [History] Diclofenac Sodium [Voltaren] 2 gm TP QID PRN 06/05/15 [History] Duloxetine [Cymbalta] 60 mg PO DAILY 06/05/15 [History] Insulin DETEMIR [Levemir] 10 unit SQ HS 10/16/15 [History] Loperamide [Imodium] 2 mg PO Q4HR PRN 10/16/15 [History] Ethyl Chloride 1 appl TP AD PRN 05/09/16 [History] GuaiFENesin Liq [Robitussin Liq] 100 mg PO Q4H PRN 05/09/16 [History] Hydrocortisone [Proctozone-Hc] 1 appl RC QID PRN 05/09/16 [History] Pregabalin [Lyrica] 50 mg PO BID 05/09/16 [History] Promethazine [Phenergan] 25 mg PO Q4H PRN 05/09/16 [History] Citlalli-D Compound Cream 1 appl TP QID 05/09/16 [History] Tramadol HCl [Ultram] 25 mg PO BID 05/09/16 [History] Cyprohepatdine [Periactin] 4 mg PO HS 06/05/16 [History] Hydroxyzine HCl 25 mg PO Q4H PRN 06/05/16 [History] Acetaminophen [Tylenol] 650 mg PO Q6HR PRN #0 tablet 06/06/16 [Rx] LORazepam [Ativan] 0.5 mg PO HS PRN #20 tablet 07/27/16 [Rx] Allergies/Adverse Reactions: Allergies Iodinated Contrast Media - Oral and Allergy (Verified 04/03/16 19:37) See Comments UNABLE TO CONFIRM REACTIONS- ALL ALLERGIES OBTAINED THROUGH [facility] LAST APPT. Penicillins Allergy (Verified 04/03/16 19:37) See Comments UNABLE TO CONFIRM REACTIONS- ALL ALLERGIES OBTAINED THROUGH [facility] LAST APPT. povidone-iodine [From Betadine] Allergy (Verified 04/03/16 19:37) See Comments UNABLE TO CONFIRM REACTIONS- ALL ALLERGIES OBTAINED THROUGH [facility] LAST APPT. soap [From Betadine] Allergy (Verified 04/03/16 19:37) See Comments UNABLE TO CONFIRM REACTIONS- ALL ALLERGIES OBTAINED THROUGH [facility] LAST APPT. Sulfa (Sulfonamide Antibiotics) Allergy (Verified 04/03/16 19:37) See Comments UNABLE TO CONFIRM REACTIONS- ALL ALLERGIES OBTAINED THROUGH [facility] LAST APPT. Dopamine Adverse Reaction (Verified 05/10/16 11:17) Drowsy Patient has nausea and vomitting, drowsiness, and confusion. Date of admission: 07/26/16 11:05 Primary care physician: PCP NO Consults: 07/26/16 11:43 Consult to Nephrology [CONS] Routine Consulting Provider: [facility] Reason for Consult: ESRD patient Time Notified: 11:44 Call Completed: Yes 07/26/16 12:02 Consult to Occupational Therapy [CONS] Routine Comment: Evaluate, develop and implement POC Consult to Physical Therapy [CONS] Routine Comment: Evaluate, develop and implement POC Consult to Mft [CONS] Routine Reason for SW Consult: Discharge planning 07/26/16 18:05 Consult to Wound Care [CONS] Routine Reason for Consult: Diabetic Foot ulcer Call Completed: Yes 07/27/16 09:15 Consult to Dialysis [CONS] ONCE Discharging clinician: Pao Stafford Anticipated date of discharge: 07/27/16 - Patient Status Disposition: Transfer SNF Condition: Good Functional capacity at discharge: wheelchair bound Overall status at discharge: patient is back to baseline - Discharge Instructions Follow Up With: NO,PCP [Primary Care Provider] - Additional Instructions: Please follow up with your primary care physician and almond pan finisher within one week after your discharge from the hospital. Due to your low blood pressure readings, your home dose of Carvedilol is discontinued. Your primary almond pan finisher will restart this medication as needed during your next follow up appointment. Resume all other home medications as prescribed by your primary care physician. - Diet and Activity Activity: as per physical therapy Diet: diabetic diet, low salt diet Hospital course: Ms. Crowder is a 86 year old female with past medical history of end-stage renal disease on hemodialysis, type 2 diabetes, hypertension, atrial fibrillation, cardiomyopathy, CAD who was admitted for management of hypotension. Patient responded well to IV fluids and has remained asymptomatic throughout the course of her admission. As per primary almond pan finisher patient is noted to have history of chronic hypotension. Patient is noted to be on carvedilol which was held due to her current blood pressure readings. Patient's heart rate has remained within acceptable range despite holding of carvedilol. At this time patient is hemodynamically stable and in no distress. She will be discharged back to [facility] with further follow-up with her primary care physician and almond pan finisher. Patient is to receive hemodialysis prior to her discharge today. - Time Spent with Patient Total time spent providing and/or coordinating discharge services: Greater than 30 minutes - Constitutional Vitals: Temp Pulse Resp BP Pulse Ox 98.1 F 88 18 82/53 92 07/27/16 08:10 07/27/16 08:10 07/27/16 08:10 07/27/16 08:10 07/27/16 08:10 General appearance: Present: cooperative, A&O X 3, morbidly obese, no acute distress, answers questions appropriately - Head Head exam: Present: atraumatic, normocephalic - Eye Eye exam: Present: normal appearance, conjuntiva pink, sclera anicteric - Respiratory Respiratory exam: Present: CTAB. Absent: accessory muscle use, rales, rhonchi, wheezes - Cardiovascular Cardiovascular exam: Present: RRR, +S1, +S2. Absent: diastolic murmur, gallop, rubs, systolic murmur - GI/Abdominal GI/Abdominal exam: Present: normal bowel sounds, soft, no peritoneal signs. Absent: distended, tenderness - Extremities Exam Extremities exam: Present: warm, radial pulses palpable and symetrical. Absent : calf tenderness - Neurological Exam Neurological exam: Present: alert, oriented X3 - Psychiatric Psychiatric exam: Present: normal affect, normal mood
[2016-07-27 10:40] LABS: Hepatitis B Surface Antigen Nonreactive (Nonreactive)
[2016-07-27 10:42] LABS: Hepatitis B Surface Antibody 36.83 mIU/mL
--- NOTE | 2016-07-27 11:07 | Physician Discharge Referral ---
[facility] Referral Info Transfer To: ECF Provider in Charge after Transfer: PCP - Diagnosis (1) ESRD (end stage renal disease) on dialysis Priority: Secondary Status: Chronic (2) DVT prophylaxis Priority: Secondary Status: Acute (3) Hypotension Priority: Primary Status: Chronic (4) Anemia Priority: Secondary Status: Chronic - Transfer Medications Prescriptions: LORazepam [Ativan] 0.5 mg PO HS PRN #20 tablet PRN Reason: anxiety/agitation Home Medications: Allopurinol [Zyloprim 100 MG] 100 mg PO DAILY 04/14/15 [History] Aspirin 81 mg PO DAILY 04/14/15 [History] Clopidogrel [Plavix] 75 mg PO DAILY 04/14/15 [History] Docusate Sodium [Colace] 100 mg PO DAILY 04/14/15 [History] Insulin LISPRO [HumaLOG] 2 - 12 units SQ TIDAC 04/14/15 [History] Ipratropium/Albuterol Neb [Duoneb] 3 ml IH Q6HR 04/14/15 [History] Omeprazole [PriLOSEC] 20 mg PO DAILY 04/14/15 [History] Sevelamer [Renvela] 800 mg PO TIDWM 04/14/15 [History] Ascorbate Calcium [Vitamin C] 500 mg PO DAILY 06/05/15 [History] Diclofenac Sodium [Voltaren] 2 gm TP QID PRN 06/05/15 [History] Duloxetine [Cymbalta] 60 mg PO DAILY 06/05/15 [History] Insulin DETEMIR [Levemir] 10 unit SQ HS 10/16/15 [History] Loperamide [Imodium] 2 mg PO Q4HR PRN 10/16/15 [History] Ethyl Chloride 1 appl TP AD PRN 05/09/16 [History] GuaiFENesin Liq [Robitussin Liq] 100 mg PO Q4H PRN 05/09/16 [History] Hydrocortisone [Proctozone-Hc] 1 appl RC QID PRN 05/09/16 [History] Pregabalin [Lyrica] 50 mg PO BID 05/09/16 [History] Promethazine [Phenergan] 25 mg PO Q4H PRN 05/09/16 [History] Citlalli-D Compound Cream 1 appl TP QID 05/09/16 [History] Tramadol HCl [Ultram] 25 mg PO BID 05/09/16 [History] Cyprohepatdine [Periactin] 4 mg PO HS 06/05/16 [History] Hydroxyzine HCl 25 mg PO Q4H PRN 06/05/16 [History] Acetaminophen [Tylenol] 650 mg PO Q6HR PRN #0 tablet 06/06/16 [Rx] LORazepam [Ativan] 0.5 mg PO HS PRN #20 tablet 07/27/16 [Rx] Allergies/Adverse Reactions: Allergies Iodinated Contrast Media - Oral and Allergy (Verified 04/03/16 19:37) See Comments UNABLE TO CONFIRM REACTIONS- ALL ALLERGIES OBTAINED THROUGH [facility] LAST APPT. Penicillins Allergy (Verified 04/03/16 19:37) See Comments UNABLE TO CONFIRM REACTIONS- ALL ALLERGIES OBTAINED THROUGH [facility] LAST APPT. povidone-iodine [From Betadine] Allergy (Verified 04/03/16 19:37) See Comments UNABLE TO CONFIRM REACTIONS- ALL ALLERGIES OBTAINED THROUGH [facility] LAST APPT. soap [From Betadine] Allergy (Verified 04/03/16 19:37) See Comments UNABLE TO CONFIRM REACTIONS- ALL ALLERGIES OBTAINED THROUGH [facility] LAST APPT. Sulfa (Sulfonamide Antibiotics) Allergy (Verified 04/03/16 19:37) See Comments UNABLE TO CONFIRM REACTIONS- ALL ALLERGIES OBTAINED THROUGH [facility] LAST APPT. Dopamine Adverse Reaction (Verified 05/10/16 11:17) Drowsy Patient has nausea and vomitting, drowsiness, and confusion. - Respiratory Orders Smoking Cessation: Smoking cessation has been advised. For more information, call the [place] Tobacco Quit Line at 8-940-UECL-NOW. - Treatments List/Other: Please follow up with your primary care physician and data technician within one week after your discharge from the hospital. Due to your low blood pressure readings, your home dose of Carvedilol is discontinued. Your primary data technician will restart this medication as needed during your next follow up appointment. Resume all other home medications as prescribed by your primary care physician. CERTIFICATION: I certify that the transfer of the above named patient to an Extended Care Facility is necessary for the continuing treatment of the diagnosis listed. The above information is true and accurate reflection of patient's current condition. Confidential - Redisclosure prohibited without a patient's written consent.
[2016-07-27] MEDS ORDERED: Albuterol 2.5 MG/3 ML NEBULIZER IH PRN (11:39)
[2016-07-27] MEDS ORDERED: traMADol 50 MG TABLET PO PRN (11:44)
[2016-07-27 16:54] VITALS: BP 109/49
[2016-07-27] MEDS ORDERED: Pregabalin 25 MG CAPSULE PO SCH (21:00)
== END 2016-07-27 17:23 ==
LOC: EMEROO 09:26 → 2NENU 09:26 → SUATTDRO 11:05 → 2NENU 11:06 → 2ANU 14:11
PROVIDERS: ADMIT Internal Medicine; ATTEND Internal Medicine